=== PATIENT | female | born 1950 | race Asian ===

== ENCOUNTER → 2017-02-08 | Outpatient (CLI) | payer OTHER ==
[~2017-02-08] MED LIST: ALLO100T PO; APIX2.5T PO; CALC1TAB15 PO; CALC25 PO; CETI-260 PO; DOCU250C91 PO; FLUT1DIS3 IH; FURO20 PO; HYDR-3965 PO; MAGN400T40 PO; METO25 PO; MULT1TAB7 PO; SENN8.6T90 PO; SIMV20 PO; SOTA80 PO; TEMA30 PO; VITAD1000 PO
[2017-02-08 10:11] LABS: BASOPHILS # (AUTO) 0.01 K/uL (0.00-0.20); BASOPHILS % (AUTO) 0.2 % (0.0-2.0); EOSINOPHILS # (AUTO) 0.23 K/uL (0.00-0.70); EOSINOPHILS % (AUTO) 3.83 % (1.0-6.0); HEMATOCRIT 35.3 % (36-46); HEMOGLOBIN 11.5 g/dL (12.0-16.0); LYMPHOCYTES # (AUTO) 1.5 K/uL (1.0-4.8); LYMPHOCYTES % (AUTO) 24.7 % (22.0-44.0); MEAN CORPUSCULAR HGB CONC 32.5 G/dL (31.0-37.0); MEAN CORPUSCULAR VOLUME 86 fL (80-100); MONOCYTES # (AUTO) 0.4 K/uL (0.1-1.0); MONOCYTES % (AUTO) 7.3 % (2.0-9.0); NEUTROPHILS # (AUTO) 3.9 K/uL (1.8-7.7); PLATELET COUNT (AUTO) 191 K/uL (150-450); RED BLOOD CELL COUNT(AUTO) 4.09 MIL/uL (4.00-5.20); RED CELL DISTRIBUTION WIDTH 18.1 % (11.5-14.5); WHITE BLOOD COUNT (AUTO) 6.1 K/uL (4.5-11.0)
[2017-02-08 10:28] LABS: HEMOGLOBIN A1C 6.6 % (4.5-6.2)
[2017-02-08 10:45] LABS: ALBUMIN 3.6 g/dL (3.4-5.0); BILIRUBIN,TOTAL 0.3 mg/dL (0.1-1.0); CALCIUM, TOTAL 8.7 mg/dL (8.8-10.5); CHOL/HDL RATIO 2.1 (3.9-5.7); CREATININE 1.55 mg/dL (0.60-1.30); POTASSIUM 4.4 mmol/L (3.5-5.1); THYROID STIMULATING HORMONE 4.95 uIU/mL (0.36-3.74); TOTAL PROTEIN, SERUM 8.6 g/dL (6.4-8.2)
[2017-02-08 10:52] LABS: RBC MORPHOLOGY COMMENT ABNORMAL RBC MORPH
== END | disposition home or self-care (01) ==
LOC: LABPV 07:16
PROVIDERS: ATTEND Internal Medicine Cardiovascular Disease
DX: I11.0 Hypertensive heart disease with heart failure (principal); I50.9 Heart failure, unspecified; E11.8 Type 2 diabetes mellitus with unspecified complications
CPT/HCPCS: 82306; 83036; 84439; 84443

== ENCOUNTER → 2017-02-26 | Outpatient (CLI) | payer OTHER | END | disposition home or self-care (01) | LOC: RADPV 14:55 | PROVIDERS: ATTEND Internal Medicine | DX: M47.894 Other spondylosis, thoracic region (principal); J98.11 Atelectasis; I51.7 Cardiomegaly | CPT/HCPCS: 71020 ==

== ENCOUNTER → 2017-06-14 | Outpatient (CLI) | payer OTHER ==
[~2017-06-14] MED LIST changes: +SIMV-260 PO; -SIMV20 PO
[2017-06-14 09:59] LABS: CALCIUM, TOTAL 8.8 mg/dL (8.8-10.5); CREATININE 1.81 mg/dL (0.60-1.30); POTASSIUM 4.4 mmol/L (3.5-5.1)
== END | disposition home or self-care (01) ==
LOC: LABPV 09:05
PROVIDERS: ATTEND Internal Medicine Cardiovascular Disease
DX: I11.0 Hypertensive heart disease with heart failure (principal); I50.9 Heart failure, unspecified; E55.9 Vitamin D deficiency, unspecified; E11.8 Type 2 diabetes mellitus with unspecified complications

== ENCOUNTER → 2017-06-21 | Outpatient (CLI) | payer OTHER ==
[2017-06-21 10:36] LABS: BASOPHILS # (AUTO) 0.03 K/uL (0.00-0.20); BASOPHILS % (AUTO) 0.6 % (0.0-2.0); EOSINOPHILS # (AUTO) 0.11 K/uL (0.00-0.70); HEMATOCRIT 36.2 % (36-46); HEMOGLOBIN 11.8 g/dL (12.0-16.0); LYMPHOCYTES # (AUTO) 1.7 K/uL (1.0-4.8); MEAN CORPUSCULAR HEMOGLOBIN 30.9 pg (26.0-34.0); MEAN CORPUSCULAR HGB CONC 32.6 G/dL (31.0-37.0); MEAN CORPUSCULAR VOLUME 95 fL (80-100); MONOCYTES # (AUTO) 0.4 K/uL (0.1-1.0); MONOCYTES % (AUTO) 6.6 % (2.0-9.0); NEUTROPHILS # (AUTO) 3.7 K/uL (1.8-7.7); NEUTROPHILS % (AUTO) 61.9 % (40.0-70.0); PLATELET COUNT (AUTO) 157 K/uL (150-450); RED BLOOD CELL COUNT(AUTO) 3.82 MIL/uL (4.00-5.20); RED CELL DISTRIBUTION WIDTH 14.8 % (11.5-14.5)
[2017-06-21 10:46] LABS: POTASSIUM 4.1 mmol/L (3.5-5.1)
[2017-06-21 10:47] LABS: ALBUMIN 3.8 g/dL (3.4-5.0); BILIRUBIN,TOTAL 0.3 mg/dL (0.1-1.0); CALCIUM, TOTAL 8.7 mg/dL (8.8-10.5); CREATININE 1.86 mg/dL (0.60-1.30); TOTAL PROTEIN, SERUM 8.6 g/dL (6.4-8.2)
== END | disposition home or self-care (01) ==
LOC: LABPV 07:05
DX: C54.9 Malignant neoplasm of corpus uteri, unspecified (principal)
CPT/HCPCS: 82378

== ENCOUNTER → 2017-08-09 | Outpatient (CLI) | payer OTHER ==
[~2017-08-09] MED LIST changes: -CETI-260 PO; +CETI-290 PO
[2017-08-09 09:42] LABS: BASOPHILS % (AUTO) 0.5 % (0.0-2.0); EOSINOPHILS % (AUTO) 3.9 % (1.0-6.0); HEMATOCRIT 36.5 % (36-46); HEMOGLOBIN 12.1 g/dL (12.0-16.0); LYMPHOCYTES # (AUTO) 1.8 K/uL (1.0-4.8); LYMPHOCYTES % (AUTO) 39.6 % (22.0-44.0); MEAN CORPUSCULAR HEMOGLOBIN 31.5 pg (26.0-34.0); MEAN CORPUSCULAR HGB CONC 33.2 G/dL (31.0-37.0); MEAN CORPUSCULAR VOLUME 95 fL (80-100); MONOCYTES # (AUTO) 0.4 K/uL (0.1-1.0); MONOCYTES % (AUTO) 9.8 % (2.0-9.0); NEUTROPHILS # (AUTO) 2.1 K/uL (1.8-7.7); NEUTROPHILS % (AUTO) 46.2 % (40.0-70.0); PLATELET COUNT (AUTO) 163 K/uL (150-450); RED BLOOD CELL COUNT(AUTO) 3.84 MIL/uL (4.00-5.20); RED CELL DISTRIBUTION WIDTH 14.4 % (11.5-14.5); WHITE BLOOD COUNT (AUTO) 4.5 K/uL (4.5-11.0)
[2017-08-09 10:07] LABS: HEMOGLOBIN A1C 5.7 % (4.5-6.2)
[2017-08-09 10:18] LABS: ALBUMIN 3.8 g/dL (3.4-5.0); BILIRUBIN,TOTAL 0.3 mg/dL (0.1-1.0); CALCIUM, TOTAL 8.5 mg/dL (8.8-10.5); CHOL/HDL RATIO 2.4 (3.9-5.7); CREATININE 2.3 mg/dL (0.60-1.30); POTASSIUM 3.7 mmol/L (3.5-5.1); THYROID STIMULATING HORMONE 4.57 uIU/mL (0.36-3.74); TOTAL PROTEIN, SERUM 9.2 g/dL (6.4-8.2)
== END | disposition home or self-care (01) ==
LOC: LABPV 07:21
PROVIDERS: ATTEND Internal Medicine Cardiovascular Disease
DX: I11.0 Hypertensive heart disease with heart failure (principal); I50.9 Heart failure, unspecified; E11.8 Type 2 diabetes mellitus with unspecified complications; E55.9 Vitamin D deficiency, unspecified
CPT/HCPCS: 82306; 83036; 83735; 84439; 84443

== ENCOUNTER → 2017-08-23 | Outpatient (CLI) | payer OTHER | END | disposition home or self-care (01) | LOC: LABPV 07:18 | PROVIDERS: ATTEND Internal Medicine Cardiovascular Disease | DX: I11.0 Hypertensive heart disease with heart failure (principal); I50.9 Heart failure, unspecified; E11.8 Type 2 diabetes mellitus with unspecified complications; E55.9 Vitamin D deficiency, unspecified ==

== ENCOUNTER → 2017-09-13 | Outpatient (CLI) | payer OTHER, MEDICARE ==
[2017-09-13 12:46] LABS: CALCIUM, TOTAL 8.8 mg/dL (8.8-10.5); CREATININE 1.94 mg/dL (0.60-1.30); POTASSIUM 4.3 mmol/L (3.5-5.1)
== END | disposition home or self-care (01) ==
LOC: LABPV 08:53
PROVIDERS: ATTEND Internal Medicine Cardiovascular Disease
DX: I11.0 Hypertensive heart disease with heart failure (principal); I50.9 Heart failure, unspecified; E11.65 Type 2 diabetes mellitus with hyperglycemia; E55.9 Vitamin D deficiency, unspecified

== ENCOUNTER → 2017-10-07 | Outpatient (CLI) | payer OTHER, MEDICARE ==
[2017-10-07 12:37] LABS: HEMATOCRIT 34.1 % (36-46); HEMOGLOBIN 11.3 g/dL (12.0-16.0)
[2017-10-07 12:42] LABS: CALCIUM, TOTAL 8.8 mg/dL (8.8-10.5); CREATININE 1.79 mg/dL (0.60-1.30); PHOSPHORUS 4.6 mg/dL (2.5-4.9); POTASSIUM 4.4 mmol/L (3.5-5.1)
== END | disposition home or self-care (01) ==
LOC: LABPV 10:06
PROVIDERS: ATTEND Internal Medicine Nephrology
DX: E11.22 Type 2 diabetes mellitus with diabetic chronic kidney disease (principal); N18.4 Chronic kidney disease, stage 4 (severe); E78.5 Hyperlipidemia, unspecified
CPT/HCPCS: 82570; 83970; 84100; 84156; 85014; 85018

== ENCOUNTER → 2017-10-18 | Outpatient (CLI) | payer OTHER, MEDICARE ==
[2017-10-18 08:40] LABS: BASOPHILS # (AUTO) 0.03 K/uL (0.00-0.20); BASOPHILS % (AUTO) 0.5 % (0.0-2.0); HEMATOCRIT 37.8 % (36-46); HEMOGLOBIN 12.2 g/dL (12.0-16.0); LYMPHOCYTES # (AUTO) 1.2 K/uL (1.0-4.8); LYMPHOCYTES % (AUTO) 20.2 % (22.0-44.0); MEAN CORPUSCULAR HGB CONC 32.1 G/dL (31.0-37.0); MEAN CORPUSCULAR VOLUME 97 fL (80-100); MONOCYTES # (AUTO) 0.3 K/uL (0.1-1.0); MONOCYTES % (AUTO) 5.8 % (2.0-9.0); NEUTROPHILS % (AUTO) 68.4 % (40.0-70.0); PLATELET COUNT (AUTO) 165 K/uL (150-450); RED BLOOD CELL COUNT(AUTO) 3.91 MIL/uL (4.00-5.20); RED CELL DISTRIBUTION WIDTH 15.7 % (11.5-14.5); WHITE BLOOD COUNT (AUTO) 5.9 K/uL (4.5-11.0)
[2017-10-18 09:05] LABS: ALBUMIN 3.8 g/dL (3.4-5.0); BILIRUBIN,TOTAL 0.4 mg/dL (0.1-1.0); CHOL/HDL RATIO 2.4 (3.9-5.7); CREATININE 1.95 mg/dL (0.60-1.30); MAGNESIUM 2.2 mg/dL (1.80-2.40); POTASSIUM 4.4 mmol/L (3.5-5.1); THYROID STIMULATING HORMONE 6.16 uIU/mL (0.36-3.74); TOTAL PROTEIN, SERUM 9.3 g/dL (6.4-8.2)
== END | disposition home or self-care (01) ==
LOC: LABPV 07:12
PROVIDERS: ATTEND Internal Medicine Cardiovascular Disease
DX: I11.0 Hypertensive heart disease with heart failure (principal); I50.9 Heart failure, unspecified; E11.65 Type 2 diabetes mellitus with hyperglycemia; E55.9 Vitamin D deficiency, unspecified
CPT/HCPCS: 82306; 83036; 83735; 84439; 84443

== ENCOUNTER → 2017-11-25 | Outpatient (CLI) | payer OTHER, MEDICARE ==
[2017-11-25 11:03] LABS: BASOPHILS % (AUTO) 0.3 % (0.0-2.0); EOSINOPHILS % (AUTO) 2.9 % (1.0-6.0); HEMATOCRIT 34.8 % (36-46); HEMOGLOBIN 11.6 g/dL (12.0-16.0); LYMPHOCYTES # (AUTO) 1.6 K/uL (1.0-4.8); LYMPHOCYTES % (AUTO) 36.8 % (22.0-44.0); MEAN CORPUSCULAR HEMOGLOBIN 31.9 pg (26.0-34.0); MEAN CORPUSCULAR HGB CONC 33.2 G/dL (31.0-37.0); MEAN CORPUSCULAR VOLUME 96 fL (80-100); MONOCYTES # (AUTO) 0.3 K/uL (0.1-1.0); MONOCYTES % (AUTO) 7.5 % (2.0-9.0); NEUTROPHILS # (AUTO) 2.3 K/uL (1.8-7.7); NEUTROPHILS % (AUTO) 52.5 % (40.0-70.0); PLATELET COUNT (AUTO) 201 K/uL (150-450); RED BLOOD CELL COUNT(AUTO) 3.62 MIL/uL (4.00-5.20); RED CELL DISTRIBUTION WIDTH 14.3 % (11.5-14.5)
[2017-11-25 11:15] LABS: ALBUMIN 3.4 g/dL (3.4-5.0); BILIRUBIN,TOTAL 0.3 mg/dL (0.1-1.0); CALCIUM, TOTAL 8.7 mg/dL (8.8-10.5); CREATININE 2.34 mg/dL (0.60-1.30); POTASSIUM 4.3 mmol/L (3.5-5.1); TOTAL PROTEIN, SERUM 8.9 g/dL (6.4-8.2)
== END | disposition home or self-care (01) ==
LOC: LABPV 07:36
PROVIDERS: ATTEND Internal Medicine Cardiovascular Disease
DX: I11.0 Hypertensive heart disease with heart failure (principal); I50.9 Heart failure, unspecified; E55.9 Vitamin D deficiency, unspecified; E11.8 Type 2 diabetes mellitus with unspecified complications

== ENCOUNTER → 2018-01-13 | Outpatient (CLI) | payer OTHER | END | disposition home or self-care (01) | LOC: RADPV 10:00 | PROVIDERS: ATTEND Internal Medicine | DX: J98.11 Atelectasis (principal); I70.0 Atherosclerosis of aorta; I51.7 Cardiomegaly | CPT/HCPCS: 71046 ==

== ENCOUNTER → 2018-02-07 | Outpatient (CLI) | payer OTHER ==
[2018-02-07 11:30] LABS: HEMATOCRIT 34.6 % (36-46); HEMOGLOBIN 11.3 g/dL (12.0-16.0)
[2018-02-07 12:57] LABS: CALCIUM, TOTAL 8.7 mg/dL (8.8-10.5); CHOL/HDL RATIO 2.2 (3.9-5.7); CREATININE 1.78 mg/dL (0.60-1.30); POTASSIUM 4.6 mmol/L (3.5-5.1)
[2018-02-07 13:13] LABS: APPEARANCE,URINE CLEAR (CLEAR); BILIRUBIN,URINE NEGATIVE (NEGATIVE); GLUCOSE, URINE (UA) NEGATIVE (NEGATIVE); KETONES,URINE NEGATIVE (NEGATIVE); LEUKOCYTE ESTERASE ,URINE TRACE (NEGATIVE); NITRATE,URINE NEGATIVE (NEGATIVE); OCCULT BLOOD,URINE NEGATIVE (NEGATIVE); PROTEIN,URINE NEGATIVE (NEGATIVE); UROBILINOGEN,URINE 0.2 mg/dL (<=1.0)
[2018-02-07 13:41] LABS: BACTERIA,URINE Few /HPF (None Seen); RBC,URINE None Seen /HPF (0-2); SQUAMOUS EPITHELIAL CELL,UR Few /LPF (None Seen); WBC,URINE 0-2 /HPF (0-5)
== END | disposition home or self-care (01) ==
LOC: LABPV 07:12
PROVIDERS: ATTEND Internal Medicine Nephrology
DX: E78.5 Hyperlipidemia, unspecified (principal); E55.9 Vitamin D deficiency, unspecified; R73.09 Other abnormal glucose; R82.90 Unspecified abnormal findings in urine; R79.89 Other specified abnormal findings of blood chemistry
CPT/HCPCS: 82306; 85014; 85018

== ENCOUNTER → 2018-05-01 | Outpatient (CLI) | payer OTHER ==
[2018-05-01 10:05] LABS: ALBUMIN 3.3 g/dL (3.4-5.0); BILIRUBIN,TOTAL 0.4 mg/dL (0.1-1.0); CALCIUM, TOTAL 8.4 mg/dL (8.8-10.5); CREATININE 1.83 mg/dL (0.60-1.30); POTASSIUM 4.4 mmol/L (3.5-5.1); TOTAL PROTEIN, SERUM 9.4 g/dL (6.4-8.2)
[2018-05-01 10:11] LABS: HEMOGLOBIN A1C 6.9 % (4.5-6.2)
== END | disposition home or self-care (01) ==
LOC: LABPV 07:22
PROVIDERS: ATTEND Internal Medicine
DX: E78.5 Hyperlipidemia, unspecified (principal); Z79.899 Other long term (current) drug therapy
CPT/HCPCS: 83036

== ENCOUNTER → 2018-06-02 | Outpatient (CLI) | payer OTHER ==
[2018-06-02 08:10] LABS: EOSINOPHILS % (AUTO) 5.3 % (1.0-6.0); HEMATOCRIT 33.7 % (36-46); HEMOGLOBIN 11.3 g/dL (12.0-16.0); LYMPHOCYTES # (AUTO) 1.1 K/uL (1.0-4.8); LYMPHOCYTES % (AUTO) 23.5 % (22.0-44.0); MEAN CORPUSCULAR HEMOGLOBIN 31.3 pg (26.0-34.0); MEAN CORPUSCULAR HGB CONC 33.5 G/dL (31.0-37.0); MEAN CORPUSCULAR VOLUME 94 fL (80-100); MONOCYTES # (AUTO) 0.4 K/uL (0.1-1.0); MONOCYTES % (AUTO) 8.3 % (2.0-9.0); NEUTROPHILS # (AUTO) 2.8 K/uL (1.8-7.7); NEUTROPHILS % (AUTO) 61.9 % (40.0-70.0); PLATELET COUNT (AUTO) 199 K/uL (150-450); RED BLOOD CELL COUNT(AUTO) 3.61 MIL/uL (4.00-5.20); RED CELL DISTRIBUTION WIDTH 14.1 % (11.5-14.5)
[2018-06-02 08:19] LABS: ALBUMIN 3.2 g/dL (3.4-5.0); BILIRUBIN,TOTAL 0.5 mg/dL (0.1-1.0); CALCIUM, TOTAL 8.8 mg/dL (8.8-10.5); CREATININE 2.21 mg/dL (0.60-1.30); MAGNESIUM 2.2 mg/dL (1.80-2.40); TOTAL PROTEIN, SERUM 9.7 g/dL (6.4-8.2)
[2018-06-02 08:29] LABS: HEMOGLOBIN A1C 6.6 % (4.5-6.2)
[2018-06-02 09:12] LABS: CREATININE,URINE RANDOM 32.6 mg/dL (30.0-125.0)
== END | disposition home or self-care (01) ==
LOC: LABPV 07:10
PROVIDERS: ATTEND Internal Medicine Nephrology
DX: I13.0 Hypertensive heart and chronic kidney disease with heart failure and stage 1 through stage 4 chronic kidney disease, or unspecified chronic kidney disease (principal); E11.22 Type 2 diabetes mellitus with diabetic chronic kidney disease; N18.4 Chronic kidney disease, stage 4 (severe); I50.9 Heart failure, unspecified; E78.00 Pure hypercholesterolemia, unspecified
CPT/HCPCS: 82570; 83036; 83735; 83970; 84156

== ENCOUNTER → 2018-06-03 | Outpatient (CLI) | payer OTHER ==
[2018-06-03 17:00] LABS: % IRON SATURATION 17.7 % (22-44)
== END | disposition home or self-care (01) ==
LOC: LABPV 14:10
PROVIDERS: ATTEND Specialist
DX: R19.5 Other fecal abnormalities (principal); I13.0 Hypertensive heart and chronic kidney disease with heart failure and stage 1 through stage 4 chronic kidney disease, or unspecified chronic kidney disease; I50.9 Heart failure, unspecified; E78.00 Pure hypercholesterolemia, unspecified
CPT/HCPCS: 83540; 83550

== ENCOUNTER → 2018-06-25 | Outpatient (CLI) | payer OTHER | END | disposition home or self-care (01) | LOC: LABPV 13:51 | DX: C54.3 Malignant neoplasm of fundus uteri (principal); I11.0 Hypertensive heart disease with heart failure; I50.9 Heart failure, unspecified; E78.00 Pure hypercholesterolemia, unspecified | CPT/HCPCS: 82378 ==

== ENCOUNTER → 2018-08-18 | Outpatient (CLI) | payer OTHER ==
[2018-08-18 11:03] LABS: CALCIUM, TOTAL 8.9 mg/dL (8.8-10.5); CREATININE 2.93 mg/dL (0.60-1.30); POTASSIUM 4.5 mmol/L (3.5-5.1)
[2018-08-18 11:14] LABS: APPEARANCE,URINE CLEAR (CLEAR); BILIRUBIN,URINE NEGATIVE (NEGATIVE); GLUCOSE, URINE (UA) NEGATIVE (NEGATIVE); KETONES,URINE NEGATIVE (NEGATIVE); LEUKOCYTE ESTERASE ,URINE NEGATIVE (NEGATIVE); NITRATE,URINE NEGATIVE (NEGATIVE); OCCULT BLOOD,URINE NEGATIVE (NEGATIVE); PROTEIN,URINE NEGATIVE (NEGATIVE); UROBILINOGEN,URINE 0.2 mg/dL (<=1.0)
== END | disposition home or self-care (01) ==
LOC: LABPV 07:18
PROVIDERS: ATTEND Internal Medicine Nephrology
DX: I13.0 Hypertensive heart and chronic kidney disease with heart failure and stage 1 through stage 4 chronic kidney disease, or unspecified chronic kidney disease (principal); E11.22 Type 2 diabetes mellitus with diabetic chronic kidney disease; I50.9 Heart failure, unspecified; N18.4 Chronic kidney disease, stage 4 (severe); E78.00 Pure hypercholesterolemia, unspecified

== ENCOUNTER → 2018-08-28 | Outpatient (CLI) | payer OTHER ==
[2018-08-28 10:17] LABS: CREATININE,URINE RANDOM 21.6 mg/dL (30.0-125.0); PROTEIN,URINE RANDOM < 6 mg/dL (0-11.9)
[2018-08-28 10:21] LABS: CALCIUM, TOTAL 8.9 mg/dL (8.8-10.5); CREATININE 2.34 mg/dL (0.60-1.30); POTASSIUM 4.2 mmol/L (3.5-5.1)
== END | disposition home or self-care (01) ==
LOC: LABPV 07:18
PROVIDERS: ATTEND Internal Medicine Nephrology
DX: I13.0 Hypertensive heart and chronic kidney disease with heart failure and stage 1 through stage 4 chronic kidney disease, or unspecified chronic kidney disease (principal); I50.9 Heart failure, unspecified; N18.3 Chronic kidney disease, stage 3 (moderate); R80.9 Proteinuria, unspecified; Z94.0 Kidney transplant status
CPT/HCPCS: 82570; 84156

== ENCOUNTER → 2018-10-06 | Outpatient (CLI) | payer OTHER ==
[2018-10-06 09:43] LABS: HEMATOCRIT 36.7 % (36-46); HEMOGLOBIN 12.1 g/dL (12.0-16.0)
[2018-10-06 09:48] LABS: CREATININE,URINE RANDOM 43.6 mg/dL (30.0-125.0)
[2018-10-06 09:48] LABS: CALCIUM, TOTAL 8.6 mg/dL (8.8-10.5); CREATININE 1.93 mg/dL (0.60-1.30); POTASSIUM 4.4 mmol/L (3.5-5.1)
== END | disposition home or self-care (01) ==
LOC: LABPV 07:14
PROVIDERS: ATTEND Internal Medicine Nephrology
DX: I13.0 Hypertensive heart and chronic kidney disease with heart failure and stage 1 through stage 4 chronic kidney disease, or unspecified chronic kidney disease (principal); N18.3 Chronic kidney disease, stage 3 (moderate); I50.9 Heart failure, unspecified; D63.8 Anemia in other chronic diseases classified elsewhere; R80.9 Proteinuria, unspecified
CPT/HCPCS: 82570; 84156; 85014; 85018

== ENCOUNTER 2019-01-01 15:36 | Inpatient (IN) | payer OTHER, MEDICARE ==
[~2019-01-01] VITALS: Ht 152.4 cm; Wt 99.5 kg
[~2019-01-01 15:36] MED LIST changes: -CETI-290 PO; +CETI10TA59 PO
[2019-01-01 20:02] VITALS: BP 113/64
[2019-01-01] MEDS: OXYGEN THERAPY IH SCH (21:00)
[2019-01-01] MEDS: DOCUSATE SODIUM 100 MG CAPSULE PO SCH (21:00)
[2019-01-01] MEDS ORDERED: CefTRIAXone 1 GM/DEXTROSE 50 ML IV SCH (21:00)
[2019-01-01] MEDS ORDERED: DEXTROSE 50%-WATER 25 GM/50 ML SYRINGE IVP PRN ×2 (21:00)
[2019-01-01] MEDS ORDERED: METOPROLOL SUCCINATE 50 MG ER TABLET PO SCH (21:00)
[2019-01-01] MEDS ORDERED: INSULIN LISPRO 100 UNITS/ML SQ PRN (21:00)
[2019-01-01 22:15] VITALS: BP 111/62
[2019-01-01] MEDS: ATORVASTATIN CALCIUM 40 MG TABLET PO SCH (22:18)
[2019-01-01] MEDS: INSULIN LISPRO 100 UNITS/ML SQ PRN (22:24)
[2019-01-01] MEDS: TEMAZEPAM 15 MG CAPSULE PO PRN (22:33)
[2019-01-02] VITALS: BP 105/61
[2019-01-02 00:49] LABS: GLUCOMETER DEV NAME(LOC) 2WR.2; GLUCOSE,POINT OF CARE 149 MG/DL (70-110)
[2019-01-02 06:19] LABS: GLUCOMETER DEV NAME(LOC) 2WR.1; GLUCOSE,POINT OF CARE 95 MG/DL (70-110)
[2019-01-02 06:38] LABS: EOSINOPHILS % (AUTO) 1.5 % (1.0-6.0); HEMATOCRIT 31.4 % (36-46); HEMOGLOBIN 11.2 g/dL (12.0-16.0); LYMPHOCYTES # (AUTO) 1.6 K/uL (1.0-4.8); LYMPHOCYTES % (AUTO) 29.1 % (22.0-44.0); MEAN CORPUSCULAR HEMOGLOBIN 33.9 pg (26.0-34.0); MEAN CORPUSCULAR HGB CONC 35.6 G/dL (31.0-37.0); MEAN CORPUSCULAR VOLUME 95 fL (80-100); MONOCYTES # (AUTO) 0.4 K/uL (0.1-1.0); MONOCYTES % (AUTO) 6.4 % (2.0-9.0); NEUTROPHILS # (AUTO) 3.5 K/uL (1.8-7.7); PLATELET COUNT (AUTO) 172 K/uL (150-450); RED CELL DISTRIBUTION WIDTH 14.9 % (11.5-14.5)
[2019-01-02 06:42] LABS: PROTHROMBIN TIME 10.1 SEC (9.4-11.6)
[2019-01-02 06:58] LABS: ALBUMIN 2.5 g/dL (3.4-5.0); BILIRUBIN,TOTAL 0.3 mg/dL (0.1-1.0); CALCIUM, TOTAL 8.7 mg/dL (8.8-10.5); CREATININE 1.67 mg/dL (0.60-1.30); POTASSIUM 4.4 mmol/L (3.5-5.1); TOTAL PROTEIN, SERUM 7.5 g/dL (6.4-8.2)
[2019-01-02 08:00] VITALS: BP 131/82
[2019-01-02] MEDS: OXYGEN THERAPY IH SCH ×2 (08:00→20:00)
[2019-01-02] MEDS: CALCITRIOL 0.25 MCG CAPSULE PO SCH (08:41)
[2019-01-02] MEDS: 0.9% SODIUM CHLORIDE 10 ML SYRINGE IVP SCH ×2 (08:41→17:42)
[2019-01-02] MEDS: DOCUSATE SODIUM 100 MG CAPSULE PO SCH ×2 (08:42→21:00)
[2019-01-02] MEDS: FUROSEMIDE 20 MG TABLET PO SCH (08:42)
[2019-01-02] MEDS: CLOPIDOGREL BISULFATE 75 MG TABLET PO SCH (08:42)
[2019-01-02] MEDS: ALLOPURINOL 100 MG TABLET PO SCH (08:42)
[2019-01-02] MEDS: ASPIRIN 81 MG EC TABLET PO SCH (08:42)
[2019-01-02] MEDS: METOPROLOL TARTRATE 50 MG TABLET PO SCH ×2 (09:35→21:21)
[2019-01-02] MEDS: PredniSONE 20 MG TABLET PO SCH (09:35)
[2019-01-02] MEDS: MULTIVITAMINS WITH MINERALS, THERAPEUTIC TABLET PO SCH (09:35)
[2019-01-02] MEDS: CETIRIZINE HCL 10 MG TABLET PO SCH (09:35)
[2019-01-02 12:54] LABS: GLUCOMETER DEV NAME(LOC) 2WR.1; GLUCOSE,POINT OF CARE 130 MG/DL (70-110)
[2019-01-02 16:00] VITALS: BP 118/71
[2019-01-02] MEDS: DICLOFENAC SODIUM 1% 100 GM GEL [4GM] TP SCH ×2 (17:39→21:29)
[2019-01-02] MEDS ORDERED: SODIUM CHLORIDE 0.9% 100 ML ONE (18:18)
[2019-01-02] MEDS: INSULIN LISPRO 100 UNITS/ML SQ PRN ×2 (18:27→21:44)
[2019-01-02] MEDS: CefTRIAXone 1 GM/DEXTROSE 50 ML IV SCH (18:28)
[2019-01-02 20:44] LABS: GLUCOMETER DEV NAME(LOC) 2WR.1; GLUCOSE,POINT OF CARE 238 MG/DL (70-110)
[2019-01-02] MEDS: GABAPENTIN 300 MG CAPSULE PO SCH (21:21)
[2019-01-02] MEDS: ATORVASTATIN CALCIUM 40 MG TABLET PO SCH (21:21)
[2019-01-02] MEDS: TEMAZEPAM 15 MG CAPSULE PO PRN (21:29)
[2019-01-02 21:59] LABS: GLUCOMETER DEV NAME(LOC) 2WR.1; GLUCOSE,POINT OF CARE 152 MG/DL (70-110)
[2019-01-03 05:00] VITALS: BP 130/95
[2019-01-03] MEDS: 0.9% SODIUM CHLORIDE 10 ML SYRINGE IVP SCH ×3 (05:14→16:24)
[2019-01-03 06:24] LABS: GLUCOMETER DEV NAME(LOC) 2WR.1; GLUCOSE,POINT OF CARE 93 MG/DL (70-110)
[2019-01-03 07:45] VITALS: BP 129/74
[2019-01-03] MEDS: ASPIRIN 81 MG EC TABLET PO SCH (09:37)
[2019-01-03] MEDS: DOCUSATE SODIUM 100 MG CAPSULE PO SCH ×2 (09:37→21:07)
[2019-01-03] MEDS: CALCITRIOL 0.25 MCG CAPSULE PO SCH (09:37)
[2019-01-03] MEDS: CLOPIDOGREL BISULFATE 75 MG TABLET PO SCH (09:37)
[2019-01-03] MEDS: METOPROLOL TARTRATE 50 MG TABLET PO SCH ×2 (09:37→21:14)
[2019-01-03] MEDS: PredniSONE 20 MG TABLET PO SCH (09:38)
[2019-01-03] MEDS: CETIRIZINE HCL 10 MG TABLET PO SCH (09:38)
[2019-01-03] MEDS: ALLOPURINOL 100 MG TABLET PO SCH ×2 (09:38→13:05)
[2019-01-03] MEDS: MULTIVITAMINS WITH MINERALS, THERAPEUTIC TABLET PO SCH (09:38)
[2019-01-03] MEDS: FUROSEMIDE 20 MG TABLET PO SCH (09:38)
[2019-01-03] MEDS: OXYGEN THERAPY IH SCH ×2 (09:40→20:00)
[2019-01-03] MEDS: ACETAMINOPHEN 325 MG TABLET PO PRN ×2 (09:53→16:23)
[2019-01-03 12:48] LABS: GLUCOMETER DEV NAME(LOC) 2WR.2; GLUCOSE,POINT OF CARE 208 MG/DL (70-110)
[2019-01-03] MEDS: DICLOFENAC SODIUM 1% 100 GM GEL [4GM] TP SCH ×3 (13:05→21:07)
[2019-01-03] MEDS: COLCHICINE 0.6 MG TABLET PO SCH (13:07)
[2019-01-03] MEDS: INSULIN LISPRO 100 UNITS/ML SQ PRN ×3 (13:13→21:11)
[2019-01-03 15:37] VITALS: BP 102/57
[2019-01-03 17:49] LABS: GLUCOMETER DEV NAME(LOC) 2WR.2; GLUCOSE,POINT OF CARE 333 MG/DL (70-110)
[2019-01-03] MEDS: CefTRIAXone 1 GM/DEXTROSE 50 ML IV SCH (18:36)
[2019-01-03 21:05] VITALS: BP 122/68
[2019-01-03] MEDS: MUPIROCIN CALCIUM 2% 22 GM OINTMENT NASAL SCH (21:07)
[2019-01-03] MEDS: ATORVASTATIN CALCIUM 40 MG TABLET PO SCH (21:12)
[2019-01-03] MEDS: GABAPENTIN 300 MG CAPSULE PO SCH (21:12)
[2019-01-03 21:13] LABS: GLUCOMETER DEV NAME(LOC) 2WR.2; GLUCOSE,POINT OF CARE 244 MG/DL (70-110)
[2019-01-03] MEDS: TEMAZEPAM 7.5 MG CAPSULE PO PRN (21:21)
[2019-01-04] MEDS: 0.9% SODIUM CHLORIDE 10 ML SYRINGE IVP SCH ×4 (04:29→19:11)
[2019-01-04 04:30] VITALS: BP 116/62
[2019-01-04 06:39] LABS: GLUCOMETER DEV NAME(LOC) 2WR.1; GLUCOSE,POINT OF CARE 101 MG/DL (70-110)
[2019-01-04 07:18] LABS: ALBUMIN 2.5 g/dL (3.4-5.0); BILIRUBIN,TOTAL 0.2 mg/dL (0.1-1.0); CALCIUM, TOTAL 8.7 mg/dL (8.8-10.5); CREATININE 1.87 mg/dL (0.60-1.30); POTASSIUM 4.8 mmol/L (3.5-5.1); TOTAL PROTEIN, SERUM 7.4 g/dL (6.4-8.2)
[2019-01-04 07:27] LABS: URIC ACID 6.2 mg/dL (2.6-7.2)
[2019-01-04] MEDS: OXYGEN THERAPY IH SCH ×2 (08:00→20:00)
[2019-01-04] MEDS: CALCITRIOL 0.25 MCG CAPSULE PO SCH (08:43)
[2019-01-04] MEDS: METOPROLOL TARTRATE 50 MG TABLET PO SCH ×2 (08:44→20:47)
[2019-01-04] MEDS: ASPIRIN 81 MG EC TABLET PO SCH (08:44)
[2019-01-04] MEDS: DOCUSATE SODIUM 100 MG CAPSULE PO SCH ×2 (08:44→20:46)
[2019-01-04] MEDS: COLCHICINE 0.6 MG TABLET PO SCH (08:44)
[2019-01-04] MEDS: FUROSEMIDE 40 MG TABLET PO SCH (08:44)
[2019-01-04] MEDS: MULTIVITAMINS WITH MINERALS, THERAPEUTIC TABLET PO SCH (08:44)
[2019-01-04] MEDS: ALLOPURINOL 100 MG TABLET PO SCH (08:44)
[2019-01-04] MEDS: CLOPIDOGREL BISULFATE 75 MG TABLET PO SCH (08:45)
[2019-01-04] MEDS: CETIRIZINE HCL 10 MG TABLET PO SCH (08:45)
[2019-01-04] MEDS: DICLOFENAC SODIUM 1% 100 GM GEL [4GM] TP SCH ×3 (08:45→20:46)
[2019-01-04] MEDS: MUPIROCIN CALCIUM 2% 22 GM OINTMENT NASAL SCH ×3 (09:00→20:47)
[2019-01-04 09:36] VITALS: BP 120/78
[2019-01-04 12:29] LABS: GLUCOMETER DEV NAME(LOC) 2WR.2; GLUCOSE,POINT OF CARE 102 MG/DL (70-110)
[2019-01-04] MEDS ORDERED: POLYETHYLENE GLYCOL 3350 17 GM PACKET PO PRN (15:15)
[2019-01-04 16:57] VITALS: BP 112/56
[2019-01-04 17:44] LABS: GLUCOMETER DEV NAME(LOC) 2WR.2; GLUCOSE,POINT OF CARE 171 MG/DL (70-110)
[2019-01-04] MEDS: INSULIN LISPRO 100 UNITS/ML SQ PRN (18:22)
[2019-01-04] MEDS: CefTRIAXone 1 GM/DEXTROSE 50 ML IV SCH (19:11)
[2019-01-04 20:45] VITALS: BP 114/62
[2019-01-04] MEDS: GABAPENTIN 300 MG CAPSULE PO SCH (20:46)
[2019-01-04] MEDS: TEMAZEPAM 7.5 MG CAPSULE PO PRN (20:46)
[2019-01-04] MEDS: ATORVASTATIN CALCIUM 40 MG TABLET PO SCH (20:46)
[2019-01-04 21:33] LABS: GLUCOMETER DEV NAME(LOC) 2WR.1; GLUCOSE,POINT OF CARE 133 MG/DL (70-110)
[2019-01-05] MEDS: 0.9% SODIUM CHLORIDE 10 ML SYRINGE IVP SCH ×3 (01:16→16:42)
[2019-01-05 01:18] VITALS: BP 118/62
[2019-01-05] MEDS: ACETAMINOPHEN 325 MG TABLET PO PRN ×2 (01:18→08:24)
[2019-01-05 06:24] LABS: GLUCOMETER DEV NAME(LOC) 2WR.1; GLUCOSE,POINT OF CARE 113 MG/DL (70-110)
[2019-01-05 07:45] VITALS: BP 114/64
[2019-01-05] MEDS: OXYGEN THERAPY IH SCH ×2 (08:00→20:00)
[2019-01-05] MEDS: METOPROLOL TARTRATE 50 MG TABLET PO SCH (08:20)
[2019-01-05] MEDS: CALCITRIOL 0.25 MCG CAPSULE PO SCH (08:20)
[2019-01-05] MEDS: FUROSEMIDE 40 MG TABLET PO SCH (08:20)
[2019-01-05] MEDS: PANTOPRAZOLE SODIUM 40 MG DR TABLET PO SCH (08:20)
[2019-01-05] MEDS: ALLOPURINOL 100 MG TABLET PO SCH (08:20)
[2019-01-05] MEDS: DICLOFENAC SODIUM 1% 100 GM GEL [4GM] TP SCH ×3 (08:20→20:46)
[2019-01-05] MEDS: CLOPIDOGREL BISULFATE 75 MG TABLET PO SCH (08:20)
[2019-01-05] MEDS: DOCUSATE SODIUM 100 MG CAPSULE PO SCH ×2 (08:20→20:46)
[2019-01-05] MEDS: MUPIROCIN CALCIUM 2% 22 GM OINTMENT NASAL SCH ×2 (08:21→20:45)
[2019-01-05] MEDS: ASPIRIN 81 MG EC TABLET PO SCH (08:21)
[2019-01-05] MEDS: COLCHICINE 0.6 MG TABLET PO SCH (08:21)
[2019-01-05] MEDS: MULTIVITAMINS WITH MINERALS, THERAPEUTIC TABLET PO SCH (08:21)
[2019-01-05 08:24] VITALS: BP 102/51
[2019-01-05] MEDS: METOPROLOL TARTRATE 25 MG TABLET PO SCH ×2 (09:00→20:45)
[2019-01-05 16:04] VITALS: BP 101/57
[2019-01-05 17:28] LABS: GLUCOMETER DEV NAME(LOC) 2WR.1; GLUCOSE,POINT OF CARE 163 MG/DL (70-110)
[2019-01-05 18:23] LABS: GLUCOMETER DEV NAME(LOC) 2WR.2; GLUCOSE,POINT OF CARE 130 MG/DL (70-110)
[2019-01-05 20:39] VITALS: BP 101/43
[2019-01-05] MEDS: TEMAZEPAM 7.5 MG CAPSULE PO PRN (20:45)
[2019-01-05] MEDS: GABAPENTIN 300 MG CAPSULE PO SCH (20:45)
[2019-01-05] MEDS: CETIRIZINE HCL 10 MG TABLET PO SCH (20:45)
[2019-01-05] MEDS: ATORVASTATIN CALCIUM 40 MG TABLET PO SCH (20:46)
[2019-01-05] MEDS: INSULIN LISPRO 100 UNITS/ML SQ PRN (21:02)
[2019-01-05 22:13] LABS: GLUCOMETER DEV NAME(LOC) 2WR.2; GLUCOSE,POINT OF CARE 145 MG/DL (70-110)
[2019-01-06] VITALS (25 sets, daily range): BP systolic 72–117; BP diastolic 35–76
[2019-01-06] MEDS: 0.9% SODIUM CHLORIDE 10 ML SYRINGE IVP SCH ×3 (04:27→16:33)
[2019-01-06] MEDS: ACETAMINOPHEN 325 MG TABLET PO PRN (04:54)
[2019-01-06 06:18] LABS: EOSINOPHILS % (AUTO) 10.3 % (1.0-6.0); HEMATOCRIT 26.3 % (36-46); HEMOGLOBIN 8.9 g/dL (12.0-16.0); LYMPHOCYTES # (AUTO) 1.6 K/uL (1.0-4.8); LYMPHOCYTES % (AUTO) 27.7 % (22.0-44.0); MEAN CORPUSCULAR HEMOGLOBIN 32.1 pg (26.0-34.0); MEAN CORPUSCULAR HGB CONC 33.7 G/dL (31.0-37.0); MEAN CORPUSCULAR VOLUME 95 fL (80-100); MONOCYTES # (AUTO) 0.3 K/uL (0.1-1.0); NEUTROPHILS # (AUTO) 3.1 K/uL (1.8-7.7); PLATELET COUNT (AUTO) 181 K/uL (150-450); RED BLOOD CELL COUNT(AUTO) 2.76 MIL/uL (4.00-5.20); RED CELL DISTRIBUTION WIDTH 15.4 % (11.5-14.5)
[2019-01-06 06:20] LABS: APPEARANCE,URINE CLEAR (CLEAR); BILIRUBIN,URINE NEGATIVE (NEGATIVE); GLUCOSE, URINE (UA) NEGATIVE (NEGATIVE); KETONES,URINE NEGATIVE (NEGATIVE); LEUKOCYTE ESTERASE ,URINE NEGATIVE (NEGATIVE); NITRATE,URINE NEGATIVE (NEGATIVE); OCCULT BLOOD,URINE NEGATIVE (NEGATIVE); PROTEIN,URINE NEGATIVE (NEGATIVE); UROBILINOGEN,URINE 0.2 mg/dL (<=1.0)
[2019-01-06 06:23] LABS: GLUCOMETER DEV NAME(LOC) 2WR.2; GLUCOSE,POINT OF CARE 131 MG/DL (70-110)
[2019-01-06 06:27] LABS: BACTERIA,URINE None Seen /HPF (None Seen); RBC,URINE None Seen /HPF (0-2); SQUAMOUS EPITHELIAL CELL,UR Moderate /LPF (None Seen); WBC,URINE 0-2 /HPF (0-5)
[2019-01-06 06:49] LABS: ALBUMIN 2.4 g/dL (3.4-5.0); BILIRUBIN,TOTAL 0.3 mg/dL (0.1-1.0); C-REACTIVE PROTEIN QUANT 0.52 mg/dL (0.00-0.30); CALCIUM, TOTAL 8.5 mg/dL (8.8-10.5); CREATININE 1.74 mg/dL (0.60-1.30); MAGNESIUM 2.2 mg/dL (1.80-2.40); PHOSPHORUS 4.3 mg/dL (2.5-4.9); POTASSIUM 4.7 mmol/L (3.5-5.1); TOTAL PROTEIN, SERUM 6.8 g/dL (6.4-8.2)
[2019-01-06] MEDS: OXYGEN THERAPY IH SCH ×2 (08:00→20:20)
[2019-01-06] MEDS ORDERED: FUROSEMIDE 20 MG/2 ML VIAL IVP ONE (08:45)
[2019-01-06] MEDS ORDERED: DIGOXIN 250 MCG/ML 2 ML AMP IVP ONE (09:45)
[2019-01-06] MEDS: CALCITRIOL 0.25 MCG CAPSULE PO SCH (10:04)
[2019-01-06] MEDS: ASPIRIN 81 MG EC TABLET PO SCH (10:04)
[2019-01-06] MEDS: DOCUSATE SODIUM 100 MG CAPSULE PO SCH ×2 (10:04→20:20)
[2019-01-06] MEDS: CLOPIDOGREL BISULFATE 75 MG TABLET PO SCH (10:04)
[2019-01-06] MEDS: ALLOPURINOL 100 MG TABLET PO SCH (10:04)
[2019-01-06] MEDS: DICLOFENAC SODIUM 1% 100 GM GEL [4GM] TP SCH ×3 (10:05→20:20)
[2019-01-06] MEDS: MUPIROCIN CALCIUM 2% 22 GM OINTMENT NASAL SCH ×2 (10:05→20:20)
[2019-01-06] MEDS: COLCHICINE 0.6 MG TABLET PO SCH (10:05)
[2019-01-06] MEDS: PANTOPRAZOLE SODIUM 40 MG DR TABLET PO SCH (10:17)
[2019-01-06] MEDS: METOPROLOL TARTRATE 25 MG TABLET PO SCH ×3 (11:32→21:00)
[2019-01-06] MEDS: HYDROCODONE/ACETAMINOPHEN 5-325 MG TABLET PO PRN (11:32)
[2019-01-06] MEDS ORDERED: MULTIVITAMINS WITH MINERALS, THERAPEUTIC TABLET PO SCH (12:00)
[2019-01-06 12:54] LABS: GLUCOMETER DEV NAME(LOC) 2WR.1; GLUCOSE,POINT OF CARE 122 MG/DL (70-110)
[2019-01-06] MEDS: INSULIN LISPRO 100 UNITS/ML SQ PRN ×2 (18:02→20:44)
[2019-01-06 18:24] LABS: GLUCOMETER DEV NAME(LOC) 2WR.2; GLUCOSE,POINT OF CARE 156 MG/DL (70-110)
[2019-01-06] MEDS: GABAPENTIN 300 MG CAPSULE PO SCH (20:20)
[2019-01-06] MEDS: CETIRIZINE HCL 10 MG TABLET PO SCH (20:20)
[2019-01-06] MEDS: ATORVASTATIN CALCIUM 40 MG TABLET PO SCH (20:21)
[2019-01-06] MEDS: TEMAZEPAM 7.5 MG CAPSULE PO PRN (20:34)
[2019-01-06 21:58] LABS: GLUCOMETER DEV NAME(LOC) 2WR.2; GLUCOSE,POINT OF CARE 187 MG/DL (70-110)
[2019-01-07] VITALS: BP 90/60
[2019-01-07 01:00] VITALS: BP 94/62
[2019-01-07] MEDS: HYDROCODONE/ACETAMINOPHEN 5-325 MG TABLET PO PRN (01:56)
[2019-01-07] MEDS: 0.9% SODIUM CHLORIDE 10 ML SYRINGE IVP SCH ×2 (03:39→08:39)
[2019-01-07 06:00] VITALS: BP 90/64
[2019-01-07 06:14] LABS: GLUCOMETER DEV NAME(LOC) 2WR.2; GLUCOSE,POINT OF CARE 138 MG/DL (70-110)
[2019-01-07 06:21] LABS: BASOPHILS % (AUTO) 1.1 % (0.0-2.0); EOSINOPHILS % (AUTO) 10.4 % (1.0-6.0); HEMATOCRIT 27.9 % (36-46); HEMOGLOBIN 9.3 g/dL (12.0-16.0); LYMPHOCYTES # (AUTO) 1.9 K/uL (1.0-4.8); LYMPHOCYTES % (AUTO) 30.9 % (22.0-44.0); MEAN CORPUSCULAR HEMOGLOBIN 32.4 pg (26.0-34.0); MEAN CORPUSCULAR HGB CONC 33.3 G/dL (31.0-37.0); MEAN CORPUSCULAR VOLUME 97 fL (80-100); MONOCYTES # (AUTO) 0.4 K/uL (0.1-1.0); MONOCYTES % (AUTO) 5.7 % (2.0-9.0); NEUTROPHILS # (AUTO) 3.2 K/uL (1.8-7.7); NEUTROPHILS % (AUTO) 51.9 % (40.0-70.0); PLATELET COUNT (AUTO) 195 K/uL (150-450); RED BLOOD CELL COUNT(AUTO) 2.87 MIL/uL (4.00-5.20)
[2019-01-07 06:37] LABS: CALCIUM, TOTAL 8.6 mg/dL (8.8-10.5); CREATININE 1.74 mg/dL (0.60-1.30); MAGNESIUM 2.2 mg/dL (1.80-2.40); PHOSPHORUS 4.8 mg/dL (2.5-4.9); POTASSIUM 5.2 mmol/L (3.5-5.1)
[2019-01-07 07:00] VITALS: BP 112/68
[2019-01-07] MEDS ORDERED: SODIUM POLYSTYRENE SULFONATE 15 GM/60 ML SUSPENSION BOTTLE PO ONE (08:00)
[2019-01-07] MEDS ORDERED: DIGOXIN 250 MCG/ML 2 ML AMP IVP ONE (08:00)
[2019-01-07] MEDS: OXYGEN THERAPY IH SCH (08:37)
[2019-01-07] MEDS: PANTOPRAZOLE SODIUM 40 MG DR TABLET PO SCH (08:38)
[2019-01-07] MEDS: DOCUSATE SODIUM 100 MG CAPSULE PO SCH (08:38)
[2019-01-07] MEDS: ASPIRIN 81 MG EC TABLET PO SCH (08:38)
[2019-01-07] MEDS: METOPROLOL TARTRATE 25 MG TABLET PO SCH (08:38)
[2019-01-07] MEDS: COLCHICINE 0.6 MG TABLET PO SCH (08:38)
[2019-01-07] MEDS: ALLOPURINOL 100 MG TABLET PO SCH (08:38)
[2019-01-07] MEDS: CALCITRIOL 0.25 MCG CAPSULE PO SCH (08:38)
[2019-01-07] MEDS: CLOPIDOGREL BISULFATE 75 MG TABLET PO SCH (08:38)
[2019-01-07] MEDS: MUPIROCIN CALCIUM 2% 22 GM OINTMENT NASAL SCH (08:40)
[2019-01-07] MEDS: DICLOFENAC SODIUM 1% 100 GM GEL [4GM] TP SCH (08:40)
[2019-01-07 08:45] VITALS: BP 110/68
[2019-01-07] MEDS ORDERED: VITAMIN B COMP/VIT C/FOLIC ACID CAPSULE PO SCH (09:00)
[2019-01-10] MEDS ORDERED: APIXABAN 5 MG TABLET PO SCH (08:00)
== END 2019-01-07 09:55 | disposition short-term general hospital (02) | DRG 65 ==
LOC: 2WR 19:38
PROVIDERS: ADMIT Physical Medicine & Rehabilitation; ATTEND Physical Medicine & Rehabilitation
DX: I63.513 Cerebral infarction due to unspecified occlusion or stenosis of bilateral middle cerebral arteries (principal); I69.351 Hemiplegia and hemiparesis following cerebral infarction affecting right dominant side; I13.0 Hypertensive heart and chronic kidney disease with heart failure and stage 1 through stage 4 chronic kidney disease, or unspecified chronic kidney disease; I50.30 Unspecified diastolic (congestive) heart failure; N39.0 Urinary tract infection, site not specified; I42.9 Cardiomyopathy, unspecified; Z68.41 Body mass index [BMI] 40.0-44.9, adult; I48.92 Unspecified atrial flutter; B96.20 Unspecified Escherichia coli [E. coli] as the cause of diseases classified elsewhere; E11.22 Type 2 diabetes mellitus with diabetic chronic kidney disease; E78.5 Hyperlipidemia, unspecified; G31.84 Mild cognitive impairment of uncertain or unknown etiology; I25.10 Atherosclerotic heart disease of native coronary artery without angina pectoris; I48.2 Chronic atrial fibrillation; M10.071 Idiopathic gout, right ankle and foot; N18.9 Chronic kidney disease, unspecified; R13.10 Dysphagia, unspecified; D63.1 Anemia in chronic kidney disease; E66.9 Obesity, unspecified; E87.5 Hyperkalemia; G47.00 Insomnia, unspecified; I48.0 Paroxysmal atrial fibrillation; K59.00 Constipation, unspecified; R29.810 Facial weakness; R74.0 Nonspecific elevation of levels of transaminase and lactic acid dehydrogenase [LDH]; T38.0X5A Adverse effect of glucocorticoids and synthetic analogues, initial encounter; M19.90 Unspecified osteoarthritis, unspecified site; M25.571 Pain in right ankle and joints of right foot; M79.604 Pain in right leg; R47.1 Dysarthria and anarthria; Z79.02 Long term (current) use of antithrombotics/antiplatelets; Z79.82 Long term (current) use of aspirin; Z79.84 Long term (current) use of oral hypoglycemic drugs; Z79.899 Other long term (current) drug therapy; Z79.01 Long term (current) use of anticoagulants; Z85.42 Personal history of malignant neoplasm of other parts of uterus; Z90.710 Acquired absence of both cervix and uterus; Z98.84 Bariatric surgery status; Z87.440 Personal history of urinary (tract) infections
CPT/HCPCS: 70551; 83036; 83735; 84100; 84550; 86140; 87081; 92507; 92523; 93005; 93970; 94761; 97112; 97163; 97167; 97530; 97535; 99366; G0238; J0696; J1160; J1940; J7050

== ENCOUNTER 2019-01-07 10:05 | Inpatient (IN) | payer OTHER, MEDICARE ==
[2019-01-07 12:39] VITALS: BP 116/62
[2019-01-07] MEDS ORDERED: ALBUTEROL SULFATE 2.5 MG/0.5 ML NEB SOLUTION NEB PRN (12:45)
[2019-01-07] MEDS ORDERED: IPRATROPIUM BROMIDE 0.5 MG/2.5 ML NEB SOLUTION NEB PRN (12:45)
[2019-01-07] MEDS ORDERED: ONDANSETRON HCL 4 MG/2 ML VIAL IVP PRN (12:45)
[2019-01-07] MEDS ORDERED: ZOLPIDEM TARTRATE 5 MG TABLET PO PRN (12:45)
[2019-01-07] MEDS ORDERED: BISACODYL 10 MG RECTAL RECTAL SUPPOSITORY PR PRN (12:45)
[2019-01-07] MEDS: HYDROCODONE/ACETAMINOPHEN 5-325 MG TABLET PO PRN ×2 (14:46→23:19)
[2019-01-07 16:21] VITALS: BP 112/58
[2019-01-07] MEDS ORDERED: ACETAMINOPHEN 325 MG TABLET PO PRN (17:15)
[2019-01-07] MEDS ORDERED: POLYETHYLENE GLYCOL 3350 17 GM PACKET PO PRN (17:30)
[2019-01-07] MEDS ORDERED: DEXTROSE 50%-WATER 25 GM/50 ML SYRINGE IVP PRN (17:30)
[2019-01-07] MEDS ORDERED: DIGOXIN 250 MCG/ML 2 ML AMP IVP ONE (17:30)
[2019-01-07] MEDS: DICLOFENAC SODIUM 1% 100 GM GEL [4GM] TP SCH ×2 (18:28→20:30)
[2019-01-07 19:42] VITALS: BP 97/54
[2019-01-07] MEDS: METOPROLOL TARTRATE 25 MG TABLET PO SCH (20:26)
[2019-01-07] MEDS: SIMVASTATIN 20 MG TABLET PO SCH (20:29)
[2019-01-07] MEDS: GABAPENTIN 300 MG CAPSULE PO SCH (20:29)
[2019-01-07] MEDS: DOCUSATE SODIUM 250 MG CAPSULE PO SCH (20:30)
[2019-01-07] MEDS: MUPIROCIN CALCIUM 2% 22 GM OINTMENT NASAL SCH (20:30)
[2019-01-07] MEDS: CETIRIZINE HCL 10 MG TABLET PO SCH (20:30)
[2019-01-07] MEDS: APIXABAN 2.5 MG TABLET PO SCH (20:30)
[2019-01-07] MEDS: ATORVASTATIN CALCIUM 40 MG TABLET PO SCH (20:30)
[2019-01-07] MEDS: INSULIN LISPRO 100 UNITS/ML SQ PRN (20:31)
[2019-01-07] MEDS: TEMAZEPAM 7.5 MG CAPSULE PO PRN (20:32)
[2019-01-07 21:04] LABS: GLUCOMETER DEV NAME(LOC) 5N.2; GLUCOSE,POINT OF CARE 190 MG/DL (70-110)
[2019-01-07 23:29] VITALS: BP 109/64
[2019-01-08 05:08] VITALS: BP 110/54
[2019-01-08 06:01] LABS: BASOPHILS % (AUTO) 1.1 % (0.0-2.0); EOSINOPHILS % (AUTO) 9.6 % (1.0-6.0); HEMATOCRIT 26.4 % (36-46); HEMOGLOBIN 8.9 g/dL (12.0-16.0); LYMPHOCYTES # (AUTO) 1.7 K/uL (1.0-4.8); LYMPHOCYTES % (AUTO) 33.3 % (22.0-44.0); MEAN CORPUSCULAR HEMOGLOBIN 32.6 pg (26.0-34.0); MEAN CORPUSCULAR HGB CONC 33.8 G/dL (31.0-37.0); MEAN CORPUSCULAR VOLUME 97 fL (80-100); MONOCYTES # (AUTO) 0.3 K/uL (0.1-1.0); MONOCYTES % (AUTO) 6.6 % (2.0-9.0); NEUTROPHILS # (AUTO) 2.6 K/uL (1.8-7.7); NEUTROPHILS % (AUTO) 49.4 % (40.0-70.0); PLATELET COUNT (AUTO) 211 K/uL (150-450); RED BLOOD CELL COUNT(AUTO) 2.73 MIL/uL (4.00-5.20); RED CELL DISTRIBUTION WIDTH 15.3 % (11.5-14.5)
[2019-01-08 06:45] LABS: ALBUMIN 2.5 g/dL (3.4-5.0); BILIRUBIN,TOTAL 0.3 mg/dL (0.1-1.0); CALCIUM, TOTAL 8.7 mg/dL (8.8-10.5); CHOL/HDL RATIO 2.4 (3.9-5.7); CREATININE 1.58 mg/dL (0.60-1.30); FREE T4 (FREE THYROXINE) 0.94 ng/dL (0.76-1.46); MAGNESIUM 2.4 mg/dL (1.80-2.40); POTASSIUM 4.7 mmol/L (3.5-5.1); THYROID STIMULATING HORMONE 4.57 uIU/mL (0.36-3.74)
[2019-01-08 06:48] LABS: HEMOGLOBIN A1C 6.6 % (4.5-6.2)
[2019-01-08 06:48] LABS: GLUCOMETER DEV NAME(LOC) 5N.2; GLUCOSE,POINT OF CARE 125 MG/DL (70-110)
[2019-01-08 06:54] LABS: URIC ACID 6.9 mg/dL (2.6-7.2)
[2019-01-08 07:41] VITALS: BP 107/82
[2019-01-08] MEDS ORDERED: FUROSEMIDE 20 MG/2 ML VIAL IVP ONE (08:00)
[2019-01-08 08:13] LABS: ERYTHROCYTE SEDIMENTATION RATE 50 MM/HR (0-20)
[2019-01-08] MEDS: MUPIROCIN CALCIUM 2% 22 GM OINTMENT NASAL SCH (08:40)
[2019-01-08] MEDS: APIXABAN 2.5 MG TABLET PO SCH ×2 (08:41→09:37)
[2019-01-08] MEDS: DOCUSATE SODIUM 250 MG CAPSULE PO SCH ×2 (08:41→20:44)
[2019-01-08] MEDS: CHOLECALCIFEROL (VIT D3) 1,000 UNITS TABLET PO SCH (08:41)
[2019-01-08] MEDS: COLCHICINE 0.6 MG TABLET PO SCH (08:42)
[2019-01-08] MEDS: ALLOPURINOL 100 MG TABLET PO SCH (08:42)
[2019-01-08] MEDS: MULTIVITAMINS WITH MINERALS, THERAPEUTIC TABLET PO SCH (08:42)
[2019-01-08] MEDS: PANTOPRAZOLE SODIUM 40 MG DR TABLET PO SCH (08:43)
[2019-01-08] MEDS: SOTALOL HCL 80 MG TABLET PO SCH ×2 (09:00→23:07)
[2019-01-08] MEDS ORDERED: ASPIRIN 81 MG EC TABLET PO SCH (09:00)
[2019-01-08] MEDS ORDERED: CLOPIDOGREL BISULFATE 75 MG TABLET PO SCH (09:00)
[2019-01-08] MEDS: SENNA 187 MG TABLET PO SCH (09:37)
[2019-01-08] MEDS: CALCITRIOL 0.25 MCG CAPSULE PO SCH (09:37)
[2019-01-08] MEDS: VITAMIN B COMP/VIT C/FOLIC ACID CAPSULE PO SCH (09:37)
[2019-01-08] MEDS: METOPROLOL TARTRATE 25 MG TABLET PO SCH ×2 (09:37→20:47)
[2019-01-08] MEDS: DICLOFENAC SODIUM 1% 100 GM GEL [4GM] TP SCH ×3 (11:29→20:45)
[2019-01-08] MEDS: INSULIN LISPRO 100 UNITS/ML SQ PRN ×2 (12:04→21:03)
[2019-01-08 12:49] LABS: GLUCOMETER DEV NAME(LOC) 5N.2; GLUCOSE,POINT OF CARE 144 MG/DL (70-110)
[2019-01-08 13:00] VITALS: BP 103/80
[2019-01-08] MEDS: HYDROCODONE/ACETAMINOPHEN 5-325 MG TABLET PO PRN ×2 (14:33→21:10)
[2019-01-08 16:21] VITALS: BP 87/47
[2019-01-08 18:07] VITALS: BP 105/58
[2019-01-08 19:30] VITALS: BP 92/49
[2019-01-08] MEDS: GABAPENTIN 300 MG CAPSULE PO SCH (20:44)
[2019-01-08] MEDS: ATORVASTATIN CALCIUM 40 MG TABLET PO SCH (20:44)
[2019-01-08] MEDS: TEMAZEPAM 7.5 MG CAPSULE PO PRN (20:44)
[2019-01-08] MEDS: CETIRIZINE HCL 10 MG TABLET PO SCH (20:44)
[2019-01-08] MEDS: SIMVASTATIN 20 MG TABLET PO SCH (20:47)
[2019-01-08] MEDS: APIXABAN 5 MG TABLET PO SCH (23:07)
[2019-01-09 00:17] VITALS: BP 101/61
[2019-01-09] MEDS: HYDROCODONE/ACETAMINOPHEN 5-325 MG TABLET PO PRN (04:36)
[2019-01-09 05:21] VITALS: BP 101/53
[2019-01-09 06:09] LABS: HEMATOCRIT 26.1 % (36-46); HEMOGLOBIN 8.8 g/dL (12.0-16.0); LYMPHOCYTES # (AUTO) 1.3 K/uL (1.0-4.8); LYMPHOCYTES % (AUTO) 27.4 % (22.0-44.0); MEAN CORPUSCULAR HEMOGLOBIN 32.5 pg (26.0-34.0); MEAN CORPUSCULAR HGB CONC 33.5 G/dL (31.0-37.0); MEAN CORPUSCULAR VOLUME 97 fL (80-100); MONOCYTES # (AUTO) 0.4 K/uL (0.1-1.0); MONOCYTES % (AUTO) 7.2 % (2.0-9.0); NEUTROPHILS # (AUTO) 2.7 K/uL (1.8-7.7); NEUTROPHILS % (AUTO) 54.4 % (40.0-70.0); PLATELET COUNT (AUTO) 213 K/uL (150-450); RED CELL DISTRIBUTION WIDTH 15.6 % (11.5-14.5)
[2019-01-09 06:27] LABS: ALBUMIN 2.5 g/dL (3.4-5.0); BILIRUBIN,TOTAL 0.3 mg/dL (0.1-1.0); CALCIUM, TOTAL 8.7 mg/dL (8.8-10.5); CREATININE 1.65 mg/dL (0.60-1.30); MAGNESIUM 2.5 mg/dL (1.80-2.40); PHOSPHORUS 5.1 mg/dL (2.5-4.9); POTASSIUM 4.7 mmol/L (3.5-5.1); TOTAL PROTEIN, SERUM 6.9 g/dL (6.4-8.2)
[2019-01-09 07:21] VITALS: BP 98/48
[2019-01-09 07:29] LABS: GLUCOMETER DEV NAME(LOC) 5S.2; GLUCOSE,POINT OF CARE 124 MG/DL (70-110)
[2019-01-09 07:29] LABS: GLUCOMETER DEV NAME(LOC) 5S.2; GLUCOSE,POINT OF CARE 147 MG/DL (70-110)
[2019-01-09] MEDS: METOPROLOL TARTRATE 25 MG TABLET PO SCH (09:00)
[2019-01-09] MEDS: MULTIVITAMINS WITH MINERALS, THERAPEUTIC TABLET PO SCH (09:20)
[2019-01-09] MEDS: ALLOPURINOL 100 MG TABLET PO SCH (09:21)
[2019-01-09] MEDS: SENNA 187 MG TABLET PO SCH (09:21)
[2019-01-09] MEDS: SOTALOL HCL 80 MG TABLET PO SCH (09:21)
[2019-01-09] MEDS: PANTOPRAZOLE SODIUM 40 MG DR TABLET PO SCH (09:22)
[2019-01-09] MEDS: DOCUSATE SODIUM 250 MG CAPSULE PO SCH (09:22)
[2019-01-09] MEDS: CALCITRIOL 0.25 MCG CAPSULE PO SCH (09:22)
[2019-01-09] MEDS: CHOLECALCIFEROL (VIT D3) 1,000 UNITS TABLET PO SCH (09:22)
[2019-01-09] MEDS: COLCHICINE 0.6 MG TABLET PO SCH (09:23)
[2019-01-09] MEDS: APIXABAN 5 MG TABLET PO SCH (09:24)
[2019-01-09] MEDS: VITAMIN B COMP/VIT C/FOLIC ACID CAPSULE PO SCH (09:27)
[2019-01-09] MEDS ORDERED: DIGOXIN 250 MCG/ML 2 ML AMP IVP ONE (09:45)
[2019-01-09] MEDS ORDERED: CALCIUM ACETATE 667 MG CAPSULE PO SCH (12:00)
[2019-01-12 16:33] LABS: GLUCOMETER DEV NAME(LOC) 5S.2; GLUCOSE,POINT OF CARE 116 MG/DL (70-110)
[2019-01-12 16:33] LABS: GLUCOMETER DEV NAME(LOC) 5N.2; GLUCOSE,POINT OF CARE 139 MG/DL (70-110)
[2019-01-12 16:33] LABS: GLUCOMETER DEV NAME(LOC) 5N.2; GLUCOSE,POINT OF CARE 96 MG/DL (70-110)
== END 2019-01-09 11:20 | DRG 308 ==
LOC: 5N 10:05
PROVIDERS: ADMIT Internal Medicine Geriatric Medicine; ATTEND Internal Medicine Geriatric Medicine
DX: I48.0 Paroxysmal atrial fibrillation (principal); I63.519 Cerebral infarction due to unspecified occlusion or stenosis of unspecified middle cerebral artery; N17.9 Acute kidney failure, unspecified; I13.0 Hypertensive heart and chronic kidney disease with heart failure and stage 1 through stage 4 chronic kidney disease, or unspecified chronic kidney disease; N39.0 Urinary tract infection, site not specified; N18.9 Chronic kidney disease, unspecified; I25.10 Atherosclerotic heart disease of native coronary artery without angina pectoris; E66.01 Morbid (severe) obesity due to excess calories; B96.20 Unspecified Escherichia coli [E. coli] as the cause of diseases classified elsewhere; D63.1 Anemia in chronic kidney disease; E11.22 Type 2 diabetes mellitus with diabetic chronic kidney disease; E78.5 Hyperlipidemia, unspecified; E83.39 Other disorders of phosphorus metabolism; E87.5 Hyperkalemia; G47.33 Obstructive sleep apnea (adult) (pediatric); I50.9 Heart failure, unspecified; J30.9 Allergic rhinitis, unspecified; M10.9 Gout, unspecified; R13.12 Dysphagia, oropharyngeal phase; Z22.322 Carrier or suspected carrier of Methicillin resistant Staphylococcus aureus; Z79.01 Long term (current) use of anticoagulants; Z79.84 Long term (current) use of oral hypoglycemic drugs; Z79.899 Other long term (current) drug therapy; Z82.49 Family history of ischemic heart disease and other diseases of the circulatory system; Z85.42 Personal history of malignant neoplasm of other parts of uterus; Z87.440 Personal history of urinary (tract) infections; Z90.710 Acquired absence of both cervix and uterus
CPT/HCPCS: 83036; 83735; 84100; 84439; 84443; 84550; 85651; 87081; 93005; 93306; 93880; 97166; 97530; G0378; J1160; J1940

== ENCOUNTER 2019-01-09 11:40 | Inpatient (IN) | payer OTHER, MEDICARE ==
[~2019-01-09] VITALS: Ht 152.4 cm; Wt 95.3 kg
[2019-01-09 14:29] VITALS: BP 88/39
[2019-01-09 15:10] VITALS: BP 96/52
[2019-01-09] MEDS ORDERED: MULTIVITAMINS WITH MINERALS, THERAPEUTIC TABLET PO ONE (15:30)
[2019-01-09] MEDS ORDERED: DEXTROSE 50%-WATER 25 GM/50 ML SYRINGE IVP PRN ×2 (15:30)
[2019-01-09] MEDS ORDERED: INSULIN LISPRO 100 UNITS/ML SQ PRN (15:30)
[2019-01-09 15:41] VITALS: BP 96/52
[2019-01-09] MEDS ORDERED: BISACODYL 5 MG EC TABLET PO PRN (16:00)
[2019-01-09] MEDS ORDERED: ONDANSETRON HCL 4 MG TABLET PO PRN (16:00)
[2019-01-09] MEDS ORDERED: POLYETHYLENE GLYCOL 3350 17 GM PACKET PO PRN (16:00)
[2019-01-09] MEDS: HYDROCODONE/ACETAMINOPHEN 5-325 MG TABLET PO PRN (16:24)
[2019-01-09] MEDS: DICLOFENAC SODIUM 1% 100 GM GEL [4GM] TP SCH ×2 (16:24→22:01)
[2019-01-09 18:44] LABS: GLUCOMETER DEV NAME(LOC) 2WR.2; GLUCOSE,POINT OF CARE 103 MG/DL (70-110)
[2019-01-09] MEDS: DOCUSATE SODIUM 250 MG CAPSULE PO SCH (22:00)
[2019-01-09] MEDS: METOPROLOL TARTRATE 25 MG TABLET PO SCH (22:00)
[2019-01-09] MEDS: ATORVASTATIN CALCIUM 40 MG TABLET PO SCH (22:01)
[2019-01-09] MEDS: TEMAZEPAM 7.5 MG CAPSULE PO PRN (22:01)
[2019-01-09] MEDS: GABAPENTIN 300 MG CAPSULE PO SCH (22:01)
[2019-01-09] MEDS: APIXABAN 5 MG TABLET PO SCH (22:01)
[2019-01-09] MEDS: CETIRIZINE HCL 10 MG TABLET PO SCH (22:01)
[2019-01-09] MEDS: SOTALOL HCL 80 MG TABLET PO SCH (22:02)
[2019-01-09 22:48] LABS: GLUCOMETER DEV NAME(LOC) 2WR.2; GLUCOSE,POINT OF CARE 100 MG/DL (70-110)
[2019-01-10 06:00] VITALS: BP 104/60
[2019-01-10 06:08] LABS: GLUCOMETER DEV NAME(LOC) 2WR.2; GLUCOSE,POINT OF CARE 115 MG/DL (70-110)
[2019-01-10 07:13] LABS: CREATININE 1.8 mg/dL (0.60-1.30); POTASSIUM 4.8 mmol/L (3.5-5.1)
[2019-01-10 07:16] LABS: BASOPHILS % (AUTO) 0.7 % (0.0-2.0); EOSINOPHILS % (AUTO) 11.4 % (1.0-6.0); HEMATOCRIT 27.5 % (36-46); LYMPHOCYTES # (AUTO) 1.4 K/uL (1.0-4.8); LYMPHOCYTES % (AUTO) 30.7 % (22.0-44.0); MEAN CORPUSCULAR HEMOGLOBIN 32.7 pg (26.0-34.0); MEAN CORPUSCULAR HGB CONC 32.9 G/dL (31.0-37.0); MEAN CORPUSCULAR VOLUME 99 fL (80-100); MONOCYTES # (AUTO) 0.3 K/uL (0.1-1.0); NEUTROPHILS # (AUTO) 2.3 K/uL (1.8-7.7); NEUTROPHILS % (AUTO) 50.2 % (40.0-70.0); PLATELET COUNT (AUTO) 215 K/uL (150-450); RED BLOOD CELL COUNT(AUTO) 2.76 MIL/uL (4.00-5.20); RED CELL DISTRIBUTION WIDTH 15.8 % (11.5-14.5)
[2019-01-10 08:30] VITALS: BP 99/58
[2019-01-10] MEDS: METOPROLOL TARTRATE 25 MG TABLET PO SCH ×3 (09:00→21:00)
[2019-01-10] MEDS: COLCHICINE 0.6 MG TABLET PO SCH (09:00)
[2019-01-10] MEDS ORDERED: SENNA 187 MG TABLET PO SCH ×2 (09:00→21:00)
[2019-01-10] MEDS: ALLOPURINOL 100 MG TABLET PO SCH (09:01)
[2019-01-10] MEDS: CHOLECALCIFEROL (VIT D3) 1,000 UNITS TABLET PO SCH (09:01)
[2019-01-10] MEDS: CALCITRIOL 0.25 MCG CAPSULE PO SCH (09:01)
[2019-01-10] MEDS: DOCUSATE SODIUM 250 MG CAPSULE PO SCH ×2 (09:01→20:54)
[2019-01-10] MEDS: APIXABAN 5 MG TABLET PO SCH ×2 (09:02→20:54)
[2019-01-10] MEDS: PANTOPRAZOLE SODIUM 40 MG DR TABLET PO SCH (09:03)
[2019-01-10] MEDS: SIMVASTATIN 20 MG TABLET PO SCH (09:03)
[2019-01-10] MEDS: DICLOFENAC SODIUM 1% 100 GM GEL [4GM] TP SCH ×3 (09:04→20:53)
[2019-01-10] MEDS: SOTALOL HCL 80 MG TABLET PO SCH ×2 (09:04→20:54)
[2019-01-10] MEDS: VITAMIN B COMP/VIT C/FOLIC ACID CAPSULE PO SCH (09:06)
[2019-01-10] MEDS: HYDROCODONE/ACETAMINOPHEN 5-325 MG TABLET PO PRN ×3 (11:36→20:57)
[2019-01-10 13:13] LABS: GLUCOMETER DEV NAME(LOC) 2WR.1; GLUCOSE,POINT OF CARE 106 MG/DL (70-110)
[2019-01-10 15:23] VITALS: BP 91/50
[2019-01-10 16:40] VITALS: BP 98/52
[2019-01-10 18:24] LABS: GLUCOMETER DEV NAME(LOC) 2WR.2; GLUCOSE,POINT OF CARE 108 MG/DL (70-110)
[2019-01-10] MEDS: GABAPENTIN 300 MG CAPSULE PO SCH (20:54)
[2019-01-10] MEDS: ATORVASTATIN CALCIUM 40 MG TABLET PO SCH (20:54)
[2019-01-10] MEDS: TEMAZEPAM 7.5 MG CAPSULE PO PRN (20:54)
[2019-01-10] MEDS: CETIRIZINE HCL 10 MG TABLET PO SCH (20:54)
[2019-01-10 21:00] VITALS: BP 92/42
[2019-01-10] MEDS: INSULIN LISPRO 100 UNITS/ML SQ PRN (21:15)
[2019-01-10 21:34] LABS: GLUCOMETER DEV NAME(LOC) 2WR.1; GLUCOSE,POINT OF CARE 203 MG/DL (70-110)
[2019-01-11] MEDS: 0.9% SODIUM CHLORIDE 10 ML SYRINGE IVP SCH ×3 (01:29→20:06)
[2019-01-11 03:04] VITALS: BP 98/56
[2019-01-11 06:14] LABS: GLUCOMETER DEV NAME(LOC) 2WR.1; GLUCOSE,POINT OF CARE 106 MG/DL (70-110)
[2019-01-11 06:15] LABS: EOSINOPHILS % (AUTO) 9.7 % (1.0-6.0); HEMOGLOBIN 8.4 g/dL (12.0-16.0); LYMPHOCYTES # (AUTO) 1.3 K/uL (1.0-4.8); LYMPHOCYTES % (AUTO) 32.9 % (22.0-44.0); MEAN CORPUSCULAR HEMOGLOBIN 32.9 pg (26.0-34.0); MEAN CORPUSCULAR HGB CONC 33.7 G/dL (31.0-37.0); MEAN CORPUSCULAR VOLUME 98 fL (80-100); MONOCYTES # (AUTO) 0.3 K/uL (0.1-1.0); MONOCYTES % (AUTO) 7.1 % (2.0-9.0); NEUTROPHILS # (AUTO) 1.9 K/uL (1.8-7.7); NEUTROPHILS % (AUTO) 49.3 % (40.0-70.0); PLATELET COUNT (AUTO) 220 K/uL (150-450); RED BLOOD CELL COUNT(AUTO) 2.57 MIL/uL (4.00-5.20); RED CELL DISTRIBUTION WIDTH 15.6 % (11.5-14.5)
[2019-01-11 06:49] LABS: ALBUMIN 2.4 g/dL (3.4-5.0); BILIRUBIN,TOTAL 0.3 mg/dL (0.1-1.0); CALCIUM, TOTAL 8.7 mg/dL (8.8-10.5); CREATININE 2.02 mg/dL (0.60-1.30); MAGNESIUM 2.7 mg/dL (1.80-2.40); POTASSIUM 4.6 mmol/L (3.5-5.1); TOTAL PROTEIN, SERUM 7.1 g/dL (6.4-8.2)
[2019-01-11 07:49] VITALS: BP 102/80
[2019-01-11] MEDS: CALCITRIOL 0.25 MCG CAPSULE PO SCH (08:16)
[2019-01-11] MEDS: ALLOPURINOL 100 MG TABLET PO SCH (08:17)
[2019-01-11] MEDS: SOTALOL HCL 80 MG TABLET PO SCH ×2 (08:17→20:23)
[2019-01-11] MEDS: PANTOPRAZOLE SODIUM 40 MG DR TABLET PO SCH (08:18)
[2019-01-11] MEDS: COLCHICINE 0.6 MG TABLET PO SCH (08:19)
[2019-01-11] MEDS: DICLOFENAC SODIUM 1% 100 GM GEL [4GM] TP SCH ×3 (08:19→20:22)
[2019-01-11] MEDS: VITAMIN B COMP/VIT C/FOLIC ACID CAPSULE PO SCH (08:19)
[2019-01-11] MEDS: CHOLECALCIFEROL (VIT D3) 1,000 UNITS TABLET PO SCH (08:19)
[2019-01-11] MEDS: SIMVASTATIN 20 MG TABLET PO SCH (08:19)
[2019-01-11] MEDS: APIXABAN 5 MG TABLET PO SCH ×2 (08:20→20:21)
[2019-01-11] MEDS: DOCUSATE SODIUM 250 MG CAPSULE PO SCH ×2 (08:22→20:22)
[2019-01-11] MEDS: METOPROLOL TARTRATE 25 MG TABLET PO SCH ×2 (08:27→20:22)
[2019-01-11] MEDS ORDERED: MULTIVITAMINS WITH MINERALS, THERAPEUTIC TABLET PO SCH (09:00)
[2019-01-11] MEDS: HYDROCODONE/ACETAMINOPHEN 5-325 MG TABLET PO PRN ×3 (09:20→20:23)
[2019-01-11 13:08] LABS: GLUCOMETER DEV NAME(LOC) 2WR.1; GLUCOSE,POINT OF CARE 173 MG/DL (70-110)
[2019-01-11 15:54] VITALS: BP 102/57
[2019-01-11] MEDS: POLYETHYLENE GLYCOL 3350 17 GM PACKET PO SCH (17:22)
[2019-01-11 17:54] LABS: GLUCOMETER DEV NAME(LOC) 2WR.1; GLUCOSE,POINT OF CARE 94 MG/DL (70-110)
[2019-01-11] MEDS: SENNA 187 MG TABLET PO SCH (20:21)
[2019-01-11] MEDS: GABAPENTIN 300 MG CAPSULE PO SCH (20:21)
[2019-01-11] MEDS: TEMAZEPAM 7.5 MG CAPSULE PO PRN (20:21)
[2019-01-11 20:22] VITALS: BP 113/61
[2019-01-11] MEDS: ATORVASTATIN CALCIUM 40 MG TABLET PO SCH (20:22)
[2019-01-11] MEDS: CETIRIZINE HCL 10 MG TABLET PO SCH (20:23)
[2019-01-11 21:29] LABS: GLUCOMETER DEV NAME(LOC) 2WR.1; GLUCOSE,POINT OF CARE 156 MG/DL (70-110)
[2019-01-12 02:45] VITALS: BP 97/58
[2019-01-12 06:14] LABS: GLUCOMETER DEV NAME(LOC) 2WR.2; GLUCOSE,POINT OF CARE 109 MG/DL (70-110)
[2019-01-12 07:25] VITALS: BP 103/49
[2019-01-12 07:32] LABS: EOSINOPHILS % (AUTO) 9.9 % (1.0-6.0); HEMATOCRIT 26.1 % (36-46); HEMOGLOBIN 8.6 g/dL (12.0-16.0); LYMPHOCYTES # (AUTO) 1.2 K/uL (1.0-4.8); LYMPHOCYTES % (AUTO) 25.5 % (22.0-44.0); MEAN CORPUSCULAR HEMOGLOBIN 32.8 pg (26.0-34.0); MEAN CORPUSCULAR VOLUME 99 fL (80-100); MONOCYTES # (AUTO) 0.3 K/uL (0.1-1.0); MONOCYTES % (AUTO) 6.2 % (2.0-9.0); NEUTROPHILS # (AUTO) 2.6 K/uL (1.8-7.7); NEUTROPHILS % (AUTO) 57.4 % (40.0-70.0); PLATELET COUNT (AUTO) 235 K/uL (150-450); RED BLOOD CELL COUNT(AUTO) 2.63 MIL/uL (4.00-5.20); RED CELL DISTRIBUTION WIDTH 15.7 % (11.5-14.5)
[2019-01-12 07:37] LABS: % IRON SATURATION 15.2 % (22-44)
[2019-01-12 07:52] LABS: ALBUMIN 2.7 g/dL (3.4-5.0); BILIRUBIN,TOTAL 0.3 mg/dL (0.1-1.0); CREATININE 1.88 mg/dL (0.60-1.30); MAGNESIUM 2.6 mg/dL (1.80-2.40); PHOSPHORUS 4.9 mg/dL (2.5-4.9); POTASSIUM 4.8 mmol/L (3.5-5.1); TOTAL PROTEIN, SERUM 7.6 g/dL (6.4-8.2)
[2019-01-12] MEDS: PANTOPRAZOLE SODIUM 40 MG DR TABLET PO SCH (08:31)
[2019-01-12] MEDS: ALLOPURINOL 100 MG TABLET PO SCH (08:31)
[2019-01-12] MEDS: CALCITRIOL 0.25 MCG CAPSULE PO SCH (08:31)
[2019-01-12] MEDS: DOCUSATE SODIUM 250 MG CAPSULE PO SCH ×2 (08:31→20:53)
[2019-01-12] MEDS: COLCHICINE 0.6 MG TABLET PO SCH (08:31)
[2019-01-12] MEDS: SIMVASTATIN 20 MG TABLET PO SCH (08:31)
[2019-01-12] MEDS: SOTALOL HCL 80 MG TABLET PO SCH ×2 (08:31→20:54)
[2019-01-12] MEDS: DICLOFENAC SODIUM 1% 100 GM GEL [4GM] TP SCH ×3 (08:32→20:54)
[2019-01-12] MEDS: APIXABAN 5 MG TABLET PO SCH ×2 (08:32→20:53)
[2019-01-12] MEDS: HYDROCODONE/ACETAMINOPHEN 5-325 MG TABLET PO PRN ×3 (08:32→20:55)
[2019-01-12] MEDS: CHOLECALCIFEROL (VIT D3) 1,000 UNITS TABLET PO SCH (08:32)
[2019-01-12 12:34] LABS: GLUCOMETER DEV NAME(LOC) 2WR.2; GLUCOSE,POINT OF CARE 128 MG/DL (70-110)
[2019-01-12] MEDS: VITAMIN B COMP/VIT C/FOLIC ACID CAPSULE PO SCH (13:24)
[2019-01-12] MEDS: POLYETHYLENE GLYCOL 3350 17 GM PACKET PO SCH (13:24)
[2019-01-12] MEDS: COLD CREAM, SKIN EMOLLIENT 340 GM JAR TP SCH ×2 (14:39→20:54)
[2019-01-12 15:45] VITALS: BP 102/66
[2019-01-12 17:54] LABS: GLUCOMETER DEV NAME(LOC) 2WR.1; GLUCOSE,POINT OF CARE 105 MG/DL (70-110)
[2019-01-12 20:41] VITALS: BP 117/62
[2019-01-12] MEDS: ATORVASTATIN CALCIUM 40 MG TABLET PO SCH (20:53)
[2019-01-12] MEDS: CETIRIZINE HCL 10 MG TABLET PO SCH (20:53)
[2019-01-12] MEDS: SENNA 187 MG TABLET PO SCH (20:53)
[2019-01-12] MEDS: METOPROLOL TARTRATE 25 MG TABLET PO SCH (20:53)
[2019-01-12] MEDS: GABAPENTIN 300 MG CAPSULE PO SCH (20:53)
[2019-01-12 21:59] LABS: GLUCOMETER DEV NAME(LOC) 2WR.1; GLUCOSE,POINT OF CARE 112 MG/DL (70-110)
[2019-01-13 03:00] VITALS: BP 137/59
[2019-01-13] MEDS: HYDROCODONE/ACETAMINOPHEN 5-325 MG TABLET PO PRN ×4 (03:57→20:43)
[2019-01-13 05:54] LABS: GLUCOMETER DEV NAME(LOC) 2WR.1; GLUCOSE,POINT OF CARE 109 MG/DL (70-110)
[2019-01-13 06:05] LABS: BASOPHILS % (AUTO) 0.9 % (0.0-2.0); EOSINOPHILS % (AUTO) 10.1 % (1.0-6.0); HEMOGLOBIN 7.7 g/dL (12.0-16.0); LYMPHOCYTES # (AUTO) 1.1 K/uL (1.0-4.8); LYMPHOCYTES % (AUTO) 29.9 % (22.0-44.0); MEAN CORPUSCULAR HEMOGLOBIN 32.9 pg (26.0-34.0); MEAN CORPUSCULAR HGB CONC 33.6 G/dL (31.0-37.0); MEAN CORPUSCULAR VOLUME 98 fL (80-100); MONOCYTES # (AUTO) 0.3 K/uL (0.1-1.0); MONOCYTES % (AUTO) 7.6 % (2.0-9.0); NEUTROPHILS # (AUTO) 1.9 K/uL (1.8-7.7); NEUTROPHILS % (AUTO) 51.5 % (40.0-70.0); PLATELET COUNT (AUTO) 199 K/uL (150-450); RED BLOOD CELL COUNT(AUTO) 2.35 MIL/uL (4.00-5.20); RED CELL DISTRIBUTION WIDTH 16.1 % (11.5-14.5)
[2019-01-13 06:35] LABS: ALBUMIN 2.6 g/dL (3.4-5.0); BILIRUBIN,TOTAL 0.3 mg/dL (0.1-1.0); CALCIUM, TOTAL 8.6 mg/dL (8.8-10.5); CREATININE 1.94 mg/dL (0.60-1.30); MAGNESIUM 2.5 mg/dL (1.80-2.40); POTASSIUM 5.1 mmol/L (3.5-5.1)
[2019-01-13 07:00] VITALS: BP 97/63
[2019-01-13] MEDS: SIMVASTATIN 20 MG TABLET PO SCH (08:57)
[2019-01-13] MEDS: POLYETHYLENE GLYCOL 3350 17 GM PACKET PO SCH (08:57)
[2019-01-13] MEDS: DOCUSATE SODIUM 250 MG CAPSULE PO SCH ×2 (08:57→21:14)
[2019-01-13] MEDS: CALCITRIOL 0.25 MCG CAPSULE PO SCH (08:57)
[2019-01-13] MEDS: PANTOPRAZOLE SODIUM 40 MG DR TABLET PO SCH (08:58)
[2019-01-13] MEDS: APIXABAN 5 MG TABLET PO SCH ×2 (08:58→21:14)
[2019-01-13] MEDS: ALLOPURINOL 100 MG TABLET PO SCH (08:58)
[2019-01-13] MEDS: CHOLECALCIFEROL (VIT D3) 1,000 UNITS TABLET PO SCH (08:58)
[2019-01-13] MEDS: VITAMIN B COMP/VIT C/FOLIC ACID CAPSULE PO SCH (08:59)
[2019-01-13] MEDS: DICLOFENAC SODIUM 1% 100 GM GEL [4GM] TP SCH ×3 (08:59→21:13)
[2019-01-13] MEDS: COLCHICINE 0.6 MG TABLET PO SCH (09:00)
[2019-01-13] MEDS: SOTALOL HCL 80 MG TABLET PO SCH ×2 (09:00→21:20)
[2019-01-13] MEDS ORDERED: SOD FERRIC GLUC COMPLX/SUCROSE 125 MG in SODIUM CHLORIDE 0.9% 100 ML IV SCH (09:00)
[2019-01-13] MEDS: COLD CREAM, SKIN EMOLLIENT 340 GM JAR TP SCH ×2 (09:01→21:15)
[2019-01-13] MEDS ORDERED: SODIUM CHLORIDE 0.9% 100 ML ONE (10:14)
[2019-01-13] MEDS: EPOETIN ALFA 10,000 UNITS/ML VIAL SQ SCH (11:25)
[2019-01-13 16:00] VITALS: BP 98/51
[2019-01-13 16:44] LABS: GLUCOMETER DEV NAME(LOC) 2WR.2; GLUCOSE,POINT OF CARE 177 MG/DL (70-110)
[2019-01-13 18:41] LABS: GLUCOMETER DEV NAME(LOC) 2WR.2; GLUCOSE,POINT OF CARE 110 MG/DL (70-110)
[2019-01-13] MEDS: METOPROLOL TARTRATE 25 MG TABLET PO SCH (21:00)
[2019-01-13] MEDS: GABAPENTIN 300 MG CAPSULE PO SCH (21:14)
[2019-01-13] MEDS: CETIRIZINE HCL 10 MG TABLET PO SCH (21:14)
[2019-01-13] MEDS: ATORVASTATIN CALCIUM 40 MG TABLET PO SCH (21:14)
[2019-01-13] MEDS: SENNA 187 MG TABLET PO SCH (21:14)
[2019-01-13] MEDS: TEMAZEPAM 7.5 MG CAPSULE PO PRN (21:25)
[2019-01-13 21:43] VITALS: BP 111/66
[2019-01-13 22:16] LABS: GLUCOMETER DEV NAME(LOC) 2WR.2; GLUCOSE,POINT OF CARE 119 MG/DL (70-110)
[2019-01-14] MEDS: 0.9% SODIUM CHLORIDE 10 ML SYRINGE IVP SCH ×3 (02:23→16:01)
[2019-01-14 04:30] VITALS: BP 94/50
[2019-01-14 06:30] LABS: GLUCOMETER DEV NAME(LOC) 2WR.2; GLUCOSE,POINT OF CARE 103 MG/DL (70-110)
[2019-01-14 06:33] LABS: BASOPHILS % (AUTO) 1.3 % (0.0-2.0); EOSINOPHILS % (AUTO) 9.9 % (1.0-6.0); HEMATOCRIT 22.8 % (36-46); HEMOGLOBIN 7.7 g/dL (12.0-16.0); LYMPHOCYTES # (AUTO) 1.1 K/uL (1.0-4.8); LYMPHOCYTES % (AUTO) 33.4 % (22.0-44.0); MEAN CORPUSCULAR HEMOGLOBIN 32.7 pg (26.0-34.0); MEAN CORPUSCULAR HGB CONC 33.7 G/dL (31.0-37.0); MEAN CORPUSCULAR VOLUME 97 fL (80-100); MONOCYTES # (AUTO) 0.2 K/uL (0.1-1.0); MONOCYTES % (AUTO) 7.3 % (2.0-9.0); NEUTROPHILS # (AUTO) 1.5 K/uL (1.8-7.7); NEUTROPHILS % (AUTO) 48.1 % (40.0-70.0); PLATELET COUNT (AUTO) 201 K/uL (150-450); RED BLOOD CELL COUNT(AUTO) 2.34 MIL/uL (4.00-5.20); RED CELL DISTRIBUTION WIDTH 15.7 % (11.5-14.5)
[2019-01-14 07:02] LABS: CALCIUM, TOTAL 8.7 mg/dL (8.8-10.5); CREATININE 1.87 mg/dL (0.60-1.30); MAGNESIUM 2.6 mg/dL (1.80-2.40); PHOSPHORUS 5.6 mg/dL (2.5-4.9); POTASSIUM 4.8 mmol/L (3.5-5.1)
[2019-01-14 07:28] VITALS: BP 93/63
[2019-01-14] MEDS: COLD CREAM, SKIN EMOLLIENT 340 GM JAR TP SCH ×2 (09:00→21:09)
[2019-01-14 09:02] VITALS: BP 95/50
[2019-01-14] MEDS: DOCUSATE SODIUM 250 MG CAPSULE PO SCH ×2 (09:02→21:08)
[2019-01-14] MEDS: APIXABAN 5 MG TABLET PO SCH ×2 (09:02→21:07)
[2019-01-14] MEDS: CHOLECALCIFEROL (VIT D3) 1,000 UNITS TABLET PO SCH (09:02)
[2019-01-14] MEDS: POLYETHYLENE GLYCOL 3350 17 GM PACKET PO SCH (09:02)
[2019-01-14] MEDS: HYDROCODONE/ACETAMINOPHEN 5-325 MG TABLET PO PRN ×3 (09:02→21:06)
[2019-01-14] MEDS: ALLOPURINOL 100 MG TABLET PO SCH (09:02)
[2019-01-14] MEDS: VITAMIN B COMP/VIT C/FOLIC ACID CAPSULE PO SCH (09:02)
[2019-01-14] MEDS: PANTOPRAZOLE SODIUM 40 MG DR TABLET PO SCH (09:02)
[2019-01-14] MEDS: CALCITRIOL 0.25 MCG CAPSULE PO SCH (09:02)
[2019-01-14] MEDS: COLCHICINE 0.6 MG TABLET PO SCH (09:03)
[2019-01-14] MEDS: DICLOFENAC SODIUM 1% 100 GM GEL [4GM] TP SCH ×3 (09:03→21:09)
[2019-01-14] MEDS: SIMVASTATIN 20 MG TABLET PO SCH (09:03)
[2019-01-14] MEDS: SOTALOL HCL 80 MG TABLET PO SCH ×2 (09:03→21:07)
[2019-01-14 13:33] LABS: GLUCOMETER DEV NAME(LOC) 2WR.2; GLUCOSE,POINT OF CARE 98 MG/DL (70-110)
[2019-01-14] MEDS ORDERED: SODIUM CHLORIDE 0.9% 100 ML ONE (15:15)
[2019-01-14 16:00] VITALS: BP 95/52
[2019-01-14] MEDS: SOD FERRIC GLUC COMPLX/SUCROSE 125 MG in SODIUM CHLORIDE 0.9% 100 ML IV SCH (16:00)
[2019-01-14 17:14] LABS: GLUCOMETER DEV NAME(LOC) 2WR.1; GLUCOSE,POINT OF CARE 107 MG/DL (70-110)
[2019-01-14] MEDS: TEMAZEPAM 7.5 MG CAPSULE PO PRN (21:06)
[2019-01-14] MEDS: ATORVASTATIN CALCIUM 40 MG TABLET PO SCH (21:07)
[2019-01-14] MEDS: CETIRIZINE HCL 10 MG TABLET PO SCH (21:08)
[2019-01-14] MEDS: GABAPENTIN 300 MG CAPSULE PO SCH (21:08)
[2019-01-14] MEDS: SENNA 187 MG TABLET PO SCH (21:10)
[2019-01-14] MEDS: INSULIN LISPRO 100 UNITS/ML SQ PRN (21:20)
[2019-01-14 23:08] LABS: GLUCOMETER DEV NAME(LOC) 2WR.2; GLUCOSE,POINT OF CARE 160 MG/DL (70-110)
[2019-01-15 05:00] VITALS: BP 98/55
[2019-01-15 05:05] VITALS: BP 100/60
[2019-01-15] MEDS: 0.9% SODIUM CHLORIDE 10 ML SYRINGE IVP SCH ×3 (05:45→19:21)
[2019-01-15] MEDS: HYDROCODONE/ACETAMINOPHEN 5-325 MG TABLET PO PRN ×3 (05:52→19:27)
[2019-01-15 06:23] LABS: GLUCOMETER DEV NAME(LOC) 2WR.2; GLUCOSE,POINT OF CARE 87 MG/DL (70-110)
[2019-01-15 06:30] LABS: EOSINOPHILS % (AUTO) 11.8 % (1.0-6.0); HEMATOCRIT 22.6 % (36-46); HEMOGLOBIN 7.5 g/dL (12.0-16.0); MEAN CORPUSCULAR HEMOGLOBIN 32.5 pg (26.0-34.0); MEAN CORPUSCULAR VOLUME 98 fL (80-100); MONOCYTES # (AUTO) 0.2 K/uL (0.1-1.0); MONOCYTES % (AUTO) 6.3 % (2.0-9.0); NEUTROPHILS # (AUTO) 1.5 K/uL (1.8-7.7); NEUTROPHILS % (AUTO) 47.9 % (40.0-70.0); PLATELET COUNT (AUTO) 195 K/uL (150-450); RED CELL DISTRIBUTION WIDTH 15.9 % (11.5-14.5)
[2019-01-15 07:13] LABS: ALBUMIN 2.7 g/dL (3.4-5.0); BILIRUBIN,TOTAL 0.3 mg/dL (0.1-1.0); CREATININE 1.76 mg/dL (0.60-1.30); MAGNESIUM 2.6 mg/dL (1.80-2.40); PHOSPHORUS 5.5 mg/dL (2.5-4.9); POTASSIUM 4.9 mmol/L (3.5-5.1); TOTAL PROTEIN, SERUM 7.2 g/dL (6.4-8.2)
[2019-01-15 07:30] VITALS: BP 101/51
[2019-01-15] MEDS: APIXABAN 5 MG TABLET PO SCH (09:00)
[2019-01-15] MEDS ORDERED: FUROSEMIDE 20 MG TABLET PO SCH (09:00)
[2019-01-15] MEDS: EPOETIN ALFA 10,000 UNITS/ML VIAL SQ SCH (09:22)
[2019-01-15] MEDS: DICLOFENAC SODIUM 1% 100 GM GEL [4GM] TP SCH ×3 (09:22→20:26)
[2019-01-15] MEDS: ALLOPURINOL 100 MG TABLET PO SCH (09:23)
[2019-01-15] MEDS: SIMVASTATIN 20 MG TABLET PO SCH (09:23)
[2019-01-15] MEDS: POLYETHYLENE GLYCOL 3350 17 GM PACKET PO SCH (09:23)
[2019-01-15] MEDS: COLCHICINE 0.6 MG TABLET PO SCH (09:23)
[2019-01-15] MEDS: VITAMIN B COMP/VIT C/FOLIC ACID CAPSULE PO SCH (09:23)
[2019-01-15] MEDS: CALCITRIOL 0.25 MCG CAPSULE PO SCH (09:24)
[2019-01-15] MEDS: CHOLECALCIFEROL (VIT D3) 1,000 UNITS TABLET PO SCH (09:24)
[2019-01-15] MEDS: SOTALOL HCL 80 MG TABLET PO SCH ×2 (09:24→20:27)
[2019-01-15] MEDS: PANTOPRAZOLE SODIUM 40 MG DR TABLET PO SCH (09:24)
[2019-01-15] MEDS: DOCUSATE SODIUM 250 MG CAPSULE PO SCH ×2 (09:24→20:27)
[2019-01-15] MEDS: COLD CREAM, SKIN EMOLLIENT 340 GM JAR TP SCH ×2 (09:25→20:32)
[2019-01-15 12:28] LABS: GLUCOMETER DEV NAME(LOC) 2WR.1; GLUCOSE,POINT OF CARE 93 MG/DL (70-110)
[2019-01-15 16:00] VITALS: BP 113/66
[2019-01-15 16:54] LABS: GLUCOMETER DEV NAME(LOC) 2WR.1; GLUCOSE,POINT OF CARE 100 MG/DL (70-110)
[2019-01-15] MEDS ORDERED: SODIUM CHLORIDE 0.9% 100 ML ONE (19:07)
[2019-01-15] MEDS: SOD FERRIC GLUC COMPLX/SUCROSE 125 MG in SODIUM CHLORIDE 0.9% 100 ML IV SCH (19:21)
[2019-01-15] MEDS: TEMAZEPAM 7.5 MG CAPSULE PO PRN (20:25)
[2019-01-15] MEDS: ATORVASTATIN CALCIUM 40 MG TABLET PO SCH (20:26)
[2019-01-15] MEDS: CETIRIZINE HCL 10 MG TABLET PO SCH (20:26)
[2019-01-15] MEDS: SENNA 187 MG TABLET PO SCH (20:26)
[2019-01-15] MEDS: GABAPENTIN 300 MG CAPSULE PO SCH (20:26)
[2019-01-15 20:27] VITALS: BP 113/55
[2019-01-15] MEDS ORDERED: DEXTROSE 5%-0.45% SODIUM CHL 1,000 ML IV PRN (23:55)
[2019-01-15] MEDS ORDERED: DEXTROSE 5%-0.9% SODIUM CHL 1,000 ML IV ONE (23:57)
[2019-01-16] MEDS: 0.9% SODIUM CHLORIDE 10 ML SYRINGE IVP SCH ×3 (00:05→16:52)
[2019-01-16 04:39] VITALS: BP 115/60
[2019-01-16] MEDS: HYDROCODONE/ACETAMINOPHEN 5-325 MG TABLET PO PRN ×3 (04:39→21:49)
[2019-01-16 06:13] LABS: GLUCOMETER DEV NAME(LOC) 2WR.1; GLUCOSE,POINT OF CARE 103 MG/DL (70-110)
[2019-01-16] MEDS: CALCITRIOL 0.25 MCG CAPSULE PO SCH (07:37)
[2019-01-16] MEDS: DOCUSATE SODIUM 250 MG CAPSULE PO SCH ×2 (07:37→21:35)
[2019-01-16] MEDS: PANTOPRAZOLE SODIUM 40 MG DR TABLET PO SCH (07:37)
[2019-01-16] MEDS: POLYETHYLENE GLYCOL 3350 17 GM PACKET PO SCH (07:38)
[2019-01-16] MEDS: SIMVASTATIN 20 MG TABLET PO SCH (07:39)
[2019-01-16] MEDS: DICLOFENAC SODIUM 1% 100 GM GEL [4GM] TP SCH (07:39)
[2019-01-16] MEDS: ALLOPURINOL 100 MG TABLET PO SCH (07:39)
[2019-01-16] MEDS: CHOLECALCIFEROL (VIT D3) 1,000 UNITS TABLET PO SCH (07:50)
[2019-01-16] MEDS: VITAMIN B COMP/VIT C/FOLIC ACID CAPSULE PO SCH (07:50)
[2019-01-16] MEDS: SOTALOL HCL 80 MG TABLET PO SCH ×2 (07:50→21:31)
[2019-01-16] MEDS ORDERED: SODIUM CHLORIDE 0.9% 1,000 ML IV ONE ×3 (08:30→09:15)
[2019-01-16] MEDS: COLD CREAM, SKIN EMOLLIENT 340 GM JAR TP SCH ×2 (09:00→21:36)
[2019-01-16 10:07] VITALS: BP 96/51
[2019-01-16 12:09] VITALS: BP 95/70
[2019-01-16 12:52] LABS: BASOPHILS % (AUTO) 0.9 % (0.0-2.0); EOSINOPHILS % (AUTO) 10.7 % (1.0-6.0); HEMATOCRIT 25.6 % (36-46); HEMOGLOBIN 8.4 g/dL (12.0-16.0); LYMPHOCYTES # (AUTO) 0.9 K/uL (1.0-4.8); LYMPHOCYTES % (AUTO) 24.8 % (22.0-44.0); MEAN CORPUSCULAR HEMOGLOBIN 32.4 pg (26.0-34.0); MEAN CORPUSCULAR HGB CONC 32.7 G/dL (31.0-37.0); MEAN CORPUSCULAR VOLUME 99 fL (80-100); MONOCYTES # (AUTO) 0.2 K/uL (0.1-1.0); MONOCYTES % (AUTO) 4.3 % (2.0-9.0); NEUTROPHILS # (AUTO) 2.1 K/uL (1.8-7.7); NEUTROPHILS % (AUTO) 59.3 % (40.0-70.0); PLATELET COUNT (AUTO) 198 K/uL (150-450); RED BLOOD CELL COUNT(AUTO) 2.58 MIL/uL (4.00-5.20); RED CELL DISTRIBUTION WIDTH 16.2 % (11.5-14.5)
[2019-01-16 13:13] LABS: CALCIUM, TOTAL 8.9 mg/dL (8.8-10.5); CREATININE 1.82 mg/dL (0.60-1.30); MAGNESIUM 2.1 mg/dL (1.80-2.40); PHOSPHORUS 4.6 mg/dL (2.5-4.9); POTASSIUM 4.7 mmol/L (3.5-5.1)
[2019-01-16 15:00] VITALS: BP 115/83
[2019-01-16] MEDS ORDERED: SODIUM CHLORIDE 0.9% 100 ML ONE (16:26)
[2019-01-16] MEDS: SOD FERRIC GLUC COMPLX/SUCROSE 125 MG in SODIUM CHLORIDE 0.9% 100 ML IV SCH (16:53)
[2019-01-16 18:18] LABS: GLUCOMETER DEV NAME(LOC) 2WR.1; GLUCOSE,POINT OF CARE 133 MG/DL (70-110)
[2019-01-16 21:30] VITALS: BP 112/70
[2019-01-16] MEDS: SENNA 187 MG TABLET PO SCH (21:32)
[2019-01-16] MEDS: GABAPENTIN 300 MG CAPSULE PO SCH (21:32)
[2019-01-16] MEDS: ATORVASTATIN CALCIUM 40 MG TABLET PO SCH (21:32)
[2019-01-16] MEDS: CETIRIZINE HCL 10 MG TABLET PO SCH (21:32)
[2019-01-16] MEDS: APIXABAN 5 MG TABLET PO SCH (21:32)
[2019-01-16] MEDS: TEMAZEPAM 7.5 MG CAPSULE PO PRN (21:33)
[2019-01-17] MEDS: 0.9% SODIUM CHLORIDE 10 ML SYRINGE IVP SCH ×4 (02:25→23:02)
[2019-01-17 03:03] VITALS: BP 102/62
[2019-01-17] MEDS: HYDROCODONE/ACETAMINOPHEN 5-325 MG TABLET PO PRN ×5 (03:03→23:02)
[2019-01-17] MEDS ORDERED: LIDOCAINE/PF 2% 5 ML VIAL IM ONE (05:58)
[2019-01-17] MEDS ORDERED: PROPOFOL 1% 20 ML VIAL IVP ONE (05:58)
[2019-01-17 07:08] LABS: GLUCOMETER DEV NAME(LOC) 2WR.2; GLUCOSE,POINT OF CARE 93 MG/DL (70-110)
[2019-01-17 07:18] LABS: BASOPHILS % (AUTO) 0.8 % (0.0-2.0); EOSINOPHILS % (AUTO) 8.7 % (1.0-6.0); HEMATOCRIT 24.2 % (36-46); HEMOGLOBIN 8.1 g/dL (12.0-16.0); LYMPHOCYTES # (AUTO) 1.3 K/uL (1.0-4.8); LYMPHOCYTES % (AUTO) 34.2 % (22.0-44.0); MEAN CORPUSCULAR HEMOGLOBIN 33.4 pg (26.0-34.0); MEAN CORPUSCULAR HGB CONC 33.4 G/dL (31.0-37.0); MEAN CORPUSCULAR VOLUME 100 fL (80-100); MONOCYTES # (AUTO) 0.2 K/uL (0.1-1.0); MONOCYTES % (AUTO) 5.9 % (2.0-9.0); NEUTROPHILS # (AUTO) 1.9 K/uL (1.8-7.7); NEUTROPHILS % (AUTO) 50.4 % (40.0-70.0); PLATELET COUNT (AUTO) 198 K/uL (150-450); RED BLOOD CELL COUNT(AUTO) 2.42 MIL/uL (4.00-5.20)
[2019-01-17 07:24] LABS: CALCIUM, TOTAL 8.9 mg/dL (8.8-10.5); CREATININE 1.82 mg/dL (0.60-1.30); POTASSIUM 4.8 mmol/L (3.5-5.1)
[2019-01-17 07:30] VITALS: BP 98/64
[2019-01-17] MEDS: POLYETHYLENE GLYCOL 3350 17 GM PACKET PO SCH (08:29)
[2019-01-17] MEDS: VITAMIN B COMP/VIT C/FOLIC ACID CAPSULE PO SCH (08:29)
[2019-01-17] MEDS: APIXABAN 5 MG TABLET PO SCH ×2 (08:29→20:22)
[2019-01-17] MEDS: CHOLECALCIFEROL (VIT D3) 1,000 UNITS TABLET PO SCH (08:29)
[2019-01-17] MEDS: ALLOPURINOL 100 MG TABLET PO SCH (08:30)
[2019-01-17] MEDS: SIMVASTATIN 20 MG TABLET PO SCH (08:30)
[2019-01-17] MEDS: CALCITRIOL 0.25 MCG CAPSULE PO SCH (08:30)
[2019-01-17] MEDS: FUROSEMIDE 20 MG TABLET PO SCH (08:31)
[2019-01-17] MEDS: DOCUSATE SODIUM 250 MG CAPSULE PO SCH ×2 (08:31→20:23)
[2019-01-17] MEDS: PANTOPRAZOLE SODIUM 40 MG DR TABLET PO SCH (08:31)
[2019-01-17] MEDS: SOTALOL HCL 80 MG TABLET PO SCH ×2 (08:35→20:23)
[2019-01-17 08:42] VITALS: BP 92/51
[2019-01-17] MEDS: EPOETIN ALFA 10,000 UNITS/ML VIAL SQ SCH (08:43)
[2019-01-17] MEDS: ALBUTEROL SULFATE 2.5 MG/0.5 ML NEB SOLUTION NEB PRN (09:32)
[2019-01-17] MEDS: IPRATROPIUM BROMIDE 0.5 MG/2.5 ML NEB SOLUTION NEB PRN (09:32)
[2019-01-17] MEDS: COLD CREAM, SKIN EMOLLIENT 340 GM JAR TP SCH ×2 (09:50→21:03)
[2019-01-17 16:01] VITALS: BP 112/71
[2019-01-17] MEDS: SOD FERRIC GLUC COMPLX/SUCROSE 125 MG in SODIUM CHLORIDE 0.9% 100 ML IV SCH (16:45)
[2019-01-17 18:19] LABS: GLUCOMETER DEV NAME(LOC) 2WR.1; GLUCOSE,POINT OF CARE 102 MG/DL (70-110)
[2019-01-17 20:15] VITALS: BP 105/84
[2019-01-17] MEDS: CETIRIZINE HCL 10 MG TABLET PO SCH (20:22)
[2019-01-17] MEDS: GABAPENTIN 300 MG CAPSULE PO SCH (20:23)
[2019-01-17] MEDS: ATORVASTATIN CALCIUM 40 MG TABLET PO SCH (20:23)
[2019-01-17] MEDS: SENNA 187 MG TABLET PO SCH (20:24)
[2019-01-17] MEDS: TEMAZEPAM 7.5 MG CAPSULE PO PRN (21:03)
[2019-01-17 23:02] VITALS: BP 117/69
[2019-01-18] MEDS: HYDROCODONE/ACETAMINOPHEN 5-325 MG TABLET PO PRN ×4 (05:50→20:39)
[2019-01-18 06:08] LABS: GLUCOMETER DEV NAME(LOC) 2WR.2; GLUCOSE,POINT OF CARE 110 MG/DL (70-110)
[2019-01-18] MEDS: SIMVASTATIN 20 MG TABLET PO SCH (09:03)
[2019-01-18] MEDS: CHOLECALCIFEROL (VIT D3) 1,000 UNITS TABLET PO SCH (09:03)
[2019-01-18] MEDS: POLYETHYLENE GLYCOL 3350 17 GM PACKET PO SCH (09:03)
[2019-01-18] MEDS: CALCITRIOL 0.25 MCG CAPSULE PO SCH (09:03)
[2019-01-18] MEDS: VITAMIN B COMP/VIT C/FOLIC ACID CAPSULE PO SCH (09:04)
[2019-01-18] MEDS: ALLOPURINOL 100 MG TABLET PO SCH (09:04)
[2019-01-18] MEDS: SOTALOL HCL 80 MG TABLET PO SCH ×2 (09:04→20:43)
[2019-01-18] MEDS: FUROSEMIDE 20 MG TABLET PO SCH (09:04)
[2019-01-18] MEDS: PANTOPRAZOLE SODIUM 40 MG DR TABLET PO SCH (09:04)
[2019-01-18] MEDS: APIXABAN 5 MG TABLET PO SCH ×2 (09:04→20:44)
[2019-01-18] MEDS: DOCUSATE SODIUM 250 MG CAPSULE PO SCH ×2 (09:04→20:44)
[2019-01-18 09:10] VITALS: BP 104/65
[2019-01-18] MEDS: COLD CREAM, SKIN EMOLLIENT 340 GM JAR TP SCH ×2 (09:12→20:45)
[2019-01-18] MEDS: 0.9% SODIUM CHLORIDE 10 ML SYRINGE IVP SCH ×2 (09:16→16:10)
[2019-01-18 15:05] VITALS: BP 110/66
[2019-01-18] MEDS: SOD FERRIC GLUC COMPLX/SUCROSE 125 MG in SODIUM CHLORIDE 0.9% 100 ML IV SCH (16:10)
[2019-01-18] MEDS: ALBUTEROL SULFATE 2.5 MG/0.5 ML NEB SOLUTION NEB PRN (17:30)
[2019-01-18] MEDS: IPRATROPIUM BROMIDE 0.5 MG/2.5 ML NEB SOLUTION NEB PRN (17:30)
[2019-01-18 17:34] LABS: GLUCOMETER DEV NAME(LOC) 2WR.2; GLUCOSE,POINT OF CARE 96 MG/DL (70-110)
[2019-01-18 20:39] VITALS: BP 110/57
[2019-01-18] MEDS: TEMAZEPAM 7.5 MG CAPSULE PO PRN (20:39)
[2019-01-18] MEDS: GABAPENTIN 300 MG CAPSULE PO SCH (20:39)
[2019-01-18] MEDS: ATORVASTATIN CALCIUM 40 MG TABLET PO SCH (20:44)
[2019-01-18] MEDS: SENNA 187 MG TABLET PO SCH (20:44)
[2019-01-18] MEDS: CETIRIZINE HCL 10 MG TABLET PO SCH (20:44)
[2019-01-19 04:14] VITALS: BP 108/78
[2019-01-19] MEDS: 0.9% SODIUM CHLORIDE 10 ML SYRINGE IVP SCH ×3 (04:14→16:07)
[2019-01-19] MEDS: HYDROCODONE/ACETAMINOPHEN 5-325 MG TABLET PO PRN ×4 (04:14→20:57)
[2019-01-19 06:20] LABS: BASOPHILS % (AUTO) 1.5 % (0.0-2.0); EOSINOPHILS % (AUTO) 10.9 % (1.0-6.0); HEMATOCRIT 25.9 % (36-46); HEMOGLOBIN 8.6 g/dL (12.0-16.0); LYMPHOCYTES # (AUTO) 1.2 K/uL (1.0-4.8); LYMPHOCYTES % (AUTO) 32.8 % (22.0-44.0); MEAN CORPUSCULAR HEMOGLOBIN 33.2 pg (26.0-34.0); MEAN CORPUSCULAR HGB CONC 33.4 G/dL (31.0-37.0); MEAN CORPUSCULAR VOLUME 99 fL (80-100); MONOCYTES # (AUTO) 0.2 K/uL (0.1-1.0); MONOCYTES % (AUTO) 6.2 % (2.0-9.0); NEUTROPHILS # (AUTO) 1.7 K/uL (1.8-7.7); NEUTROPHILS % (AUTO) 48.6 % (40.0-70.0); PLATELET COUNT (AUTO) 186 K/uL (150-450); RED CELL DISTRIBUTION WIDTH 16.3 % (11.5-14.5)
[2019-01-19 06:34] LABS: GLUCOMETER DEV NAME(LOC) 2WR.1; GLUCOSE,POINT OF CARE 89 MG/DL (70-110)
[2019-01-19 06:40] LABS: CREATININE 1.81 mg/dL (0.60-1.30); MAGNESIUM 1.9 mg/dL (1.80-2.40); PHOSPHORUS 5.3 mg/dL (2.5-4.9); POTASSIUM 4.7 mmol/L (3.5-5.1)
[2019-01-19 08:27] VITALS: BP 113/68
[2019-01-19] MEDS: CALCITRIOL 0.25 MCG CAPSULE PO SCH (08:27)
[2019-01-19] MEDS: CHOLECALCIFEROL (VIT D3) 1,000 UNITS TABLET PO SCH (08:27)
[2019-01-19] MEDS: DOCUSATE SODIUM 250 MG CAPSULE PO SCH ×2 (08:27→20:56)
[2019-01-19] MEDS: SIMVASTATIN 20 MG TABLET PO SCH (08:27)
[2019-01-19] MEDS: VITAMIN B COMP/VIT C/FOLIC ACID CAPSULE PO SCH (08:27)
[2019-01-19] MEDS: SOTALOL HCL 80 MG TABLET PO SCH ×2 (08:27→20:56)
[2019-01-19] MEDS: FUROSEMIDE 20 MG TABLET PO SCH (08:28)
[2019-01-19] MEDS: PANTOPRAZOLE SODIUM 40 MG DR TABLET PO SCH (08:28)
[2019-01-19] MEDS: ALLOPURINOL 100 MG TABLET PO SCH (08:28)
[2019-01-19] MEDS: APIXABAN 5 MG TABLET PO SCH ×2 (08:28→20:56)
[2019-01-19] MEDS: POLYETHYLENE GLYCOL 3350 17 GM PACKET PO SCH (08:28)
[2019-01-19] MEDS: COLD CREAM, SKIN EMOLLIENT 340 GM JAR TP SCH ×2 (08:33→21:00)
[2019-01-19] MEDS: SEVELAMER CARBONATE 800 MG TABLET PO SCH ×2 (12:52→17:17)
[2019-01-19 15:15] VITALS: BP 114/66
[2019-01-19] MEDS ORDERED: SODIUM CHLORIDE 0.9% 100 ML ONE (16:04)
[2019-01-19] MEDS: SOD FERRIC GLUC COMPLX/SUCROSE 125 MG in SODIUM CHLORIDE 0.9% 100 ML IV SCH (16:08)
[2019-01-19] MEDS: TEMAZEPAM 7.5 MG CAPSULE PO PRN (20:56)
[2019-01-19] MEDS: CETIRIZINE HCL 10 MG TABLET PO SCH (20:56)
[2019-01-19] MEDS: SENNA 187 MG TABLET PO SCH (20:56)
[2019-01-19] MEDS: ATORVASTATIN CALCIUM 40 MG TABLET PO SCH (20:56)
[2019-01-19] MEDS: GABAPENTIN 300 MG CAPSULE PO SCH (20:56)
[2019-01-19 20:57] VITALS: BP 110/59
[2019-01-20] MEDS: 0.9% SODIUM CHLORIDE 10 ML SYRINGE IVP SCH ×4 (02:14→23:33)
[2019-01-20 05:45] VITALS: BP 106/60
[2019-01-20 06:09] LABS: GLUCOMETER DEV NAME(LOC) 2WR.1; GLUCOSE,POINT OF CARE 94 MG/DL (70-110)
[2019-01-20 07:46] VITALS: BP 105/72
[2019-01-20] MEDS: SEVELAMER CARBONATE 800 MG TABLET PO SCH ×3 (08:12→18:05)
[2019-01-20] MEDS: APIXABAN 5 MG TABLET PO SCH ×2 (08:12→20:55)
[2019-01-20] MEDS: SOTALOL HCL 80 MG TABLET PO SCH ×2 (08:13→21:00)
[2019-01-20] MEDS: FUROSEMIDE 20 MG TABLET PO SCH (08:13)
[2019-01-20] MEDS: SIMVASTATIN 20 MG TABLET PO SCH (08:13)
[2019-01-20] MEDS: CALCITRIOL 0.25 MCG CAPSULE PO SCH (08:13)
[2019-01-20] MEDS: PANTOPRAZOLE SODIUM 40 MG DR TABLET PO SCH (08:13)
[2019-01-20] MEDS: VITAMIN B COMP/VIT C/FOLIC ACID CAPSULE PO SCH (08:13)
[2019-01-20] MEDS: POLYETHYLENE GLYCOL 3350 17 GM PACKET PO SCH (08:13)
[2019-01-20] MEDS: CHOLECALCIFEROL (VIT D3) 1,000 UNITS TABLET PO SCH (08:13)
[2019-01-20] MEDS: DOCUSATE SODIUM 250 MG CAPSULE PO SCH ×2 (08:13→20:54)
[2019-01-20] MEDS: ALLOPURINOL 100 MG TABLET PO SCH (08:14)
[2019-01-20] MEDS: COLD CREAM, SKIN EMOLLIENT 340 GM JAR TP SCH ×2 (08:16→20:56)
[2019-01-20] MEDS: EPOETIN ALFA 10,000 UNITS/ML VIAL SQ SCH (08:16)
[2019-01-20] MEDS: HYDROCODONE/ACETAMINOPHEN 5-325 MG TABLET PO PRN ×3 (08:57→20:55)
[2019-01-20 15:00] VITALS: BP 101/54
[2019-01-20] MEDS ORDERED: SODIUM CHLORIDE 0.9% 100 ML ONE (15:45)
[2019-01-20] MEDS: SOD FERRIC GLUC COMPLX/SUCROSE 125 MG in SODIUM CHLORIDE 0.9% 100 ML IV SCH (16:01)
[2019-01-20] MEDS: SENNA 187 MG TABLET PO SCH (20:54)
[2019-01-20] MEDS: GABAPENTIN 300 MG CAPSULE PO SCH (20:55)
[2019-01-20] MEDS: CETIRIZINE HCL 10 MG TABLET PO SCH (20:56)
[2019-01-20] MEDS: TEMAZEPAM 7.5 MG CAPSULE PO PRN (23:30)
[2019-01-20 23:36] VITALS: BP 110/60
[2019-01-21 07:03] LABS: GLUCOMETER DEV NAME(LOC) 2WR.2; GLUCOSE,POINT OF CARE 90 MG/DL (70-110)
[2019-01-21 07:06] LABS: EOSINOPHILS % (AUTO) 9.2 % (1.0-6.0); HEMATOCRIT 25.5 % (36-46); HEMOGLOBIN 8.4 g/dL (12.0-16.0); LYMPHOCYTES # (AUTO) 1.1 K/uL (1.0-4.8); MEAN CORPUSCULAR HEMOGLOBIN 33.2 pg (26.0-34.0); MEAN CORPUSCULAR VOLUME 101 fL (80-100); MONOCYTES # (AUTO) 0.2 K/uL (0.1-1.0); MONOCYTES % (AUTO) 7.3 % (2.0-9.0); NEUTROPHILS # (AUTO) 1.4 K/uL (1.8-7.7); NEUTROPHILS % (AUTO) 45.5 % (40.0-70.0); PLATELET COUNT (AUTO) 166 K/uL (150-450); RED BLOOD CELL COUNT(AUTO) 2.53 MIL/uL (4.00-5.20); RED CELL DISTRIBUTION WIDTH 16.8 % (11.5-14.5)
[2019-01-21 07:11] VITALS: BP 108/59
[2019-01-21 07:22] LABS: ALBUMIN 2.6 g/dL (3.4-5.0); BILIRUBIN,TOTAL 0.3 mg/dL (0.1-1.0); CREATININE 1.78 mg/dL (0.60-1.30); PHOSPHORUS 5.1 mg/dL (2.5-4.9); POTASSIUM 4.4 mmol/L (3.5-5.1); TOTAL PROTEIN, SERUM 7.1 g/dL (6.4-8.2)
[2019-01-21] MEDS: SEVELAMER CARBONATE 800 MG TABLET PO SCH ×3 (08:07→18:09)
[2019-01-21] MEDS: POLYETHYLENE GLYCOL 3350 17 GM PACKET PO SCH (08:07)
[2019-01-21] MEDS: ALLOPURINOL 100 MG TABLET PO SCH (08:07)
[2019-01-21] MEDS: SOTALOL HCL 80 MG TABLET PO SCH ×2 (08:07→21:23)
[2019-01-21] MEDS: CALCITRIOL 0.25 MCG CAPSULE PO SCH (08:07)
[2019-01-21] MEDS: VITAMIN B COMP/VIT C/FOLIC ACID CAPSULE PO SCH (08:07)
[2019-01-21] MEDS: CHOLECALCIFEROL (VIT D3) 1,000 UNITS TABLET PO SCH (08:07)
[2019-01-21] MEDS: PANTOPRAZOLE SODIUM 40 MG DR TABLET PO SCH (08:08)
[2019-01-21] MEDS: SIMVASTATIN 20 MG TABLET PO SCH (08:08)
[2019-01-21] MEDS: APIXABAN 5 MG TABLET PO SCH ×2 (08:08→21:23)
[2019-01-21] MEDS: FUROSEMIDE 20 MG TABLET PO SCH (08:08)
[2019-01-21] MEDS: DOCUSATE SODIUM 250 MG CAPSULE PO SCH ×2 (08:08→21:23)
[2019-01-21] MEDS: 0.9% SODIUM CHLORIDE 10 ML SYRINGE IVP SCH ×3 (08:10→23:14)
[2019-01-21] MEDS: FERROUS SULFATE 325 MG EC TABLET PO SCH (08:55)
[2019-01-21] MEDS: HYDROCODONE/ACETAMINOPHEN 5-325 MG TABLET PO PRN ×3 (08:55→21:23)
[2019-01-21 09:00] VITALS: BP 106/66
[2019-01-21] MEDS: COLD CREAM, SKIN EMOLLIENT 340 GM JAR TP SCH ×2 (12:15→21:24)
[2019-01-21 12:22] LABS: H. PYLORI ANTIBODY IGM <9.0 units (0.0-8.9)
[2019-01-21 16:01] VITALS: BP 111/61
[2019-01-21 21:23] VITALS: BP 121/52
[2019-01-21] MEDS: SENNA 187 MG TABLET PO SCH (21:23)
[2019-01-21] MEDS: GABAPENTIN 300 MG CAPSULE PO SCH (21:23)
[2019-01-21] MEDS: CETIRIZINE HCL 10 MG TABLET PO SCH (21:23)
[2019-01-21] MEDS: TEMAZEPAM 7.5 MG CAPSULE PO PRN (23:13)
[2019-01-21 23:47] VITALS: BP 115/52
[2019-01-22] VITALS (8 sets, daily range): BP systolic 90–129; BP diastolic 54–76
[2019-01-22] MEDS ORDERED: DIGOXIN 250 MCG/ML 2 ML AMP IVP ONE (02:15)
[2019-01-22 06:33] LABS: GLUCOMETER DEV NAME(LOC) 2WR.2; GLUCOSE,POINT OF CARE 93 MG/DL (70-110)
[2019-01-22] MEDS: HYDROCODONE/ACETAMINOPHEN 5-325 MG TABLET PO PRN ×3 (06:39→20:31)
[2019-01-22] MEDS ORDERED: ASPIRIN 81 MG EC TABLET PO ONE (08:00)
[2019-01-22] MEDS ORDERED: NITROGLYCERIN 2% (1 GM=INCH) PACKET TP SCH (08:00)
[2019-01-22] MEDS: NITROGLYCERIN 2% (1 GM=INCH) PACKET TP SCH ×2 (08:00→16:00)
[2019-01-22] MEDS: SEVELAMER CARBONATE 800 MG TABLET PO SCH ×3 (08:17→17:59)
[2019-01-22] MEDS: FERROUS SULFATE 325 MG EC TABLET PO SCH (08:18)
[2019-01-22] MEDS: CALCITRIOL 0.25 MCG CAPSULE PO SCH (08:20)
[2019-01-22] MEDS: CHOLECALCIFEROL (VIT D3) 1,000 UNITS TABLET PO SCH (08:20)
[2019-01-22] MEDS: ALLOPURINOL 100 MG TABLET PO SCH (08:20)
[2019-01-22] MEDS: APIXABAN 5 MG TABLET PO SCH ×2 (08:20→20:27)
[2019-01-22] MEDS: PANTOPRAZOLE SODIUM 40 MG DR TABLET PO SCH (08:21)
[2019-01-22] MEDS: SIMVASTATIN 20 MG TABLET PO SCH (08:21)
[2019-01-22] MEDS: METOPROLOL TARTRATE 25 MG TABLET PO SCH ×2 (08:22→20:28)
[2019-01-22] MEDS: POLYETHYLENE GLYCOL 3350 17 GM PACKET PO SCH (08:22)
[2019-01-22] MEDS: SOTALOL HCL 80 MG TABLET PO SCH ×2 (08:23→20:29)
[2019-01-22] MEDS: COLD CREAM, SKIN EMOLLIENT 340 GM JAR TP SCH ×2 (08:26→20:37)
[2019-01-22] MEDS: EPOETIN ALFA 10,000 UNITS/ML VIAL SQ SCH (08:31)
[2019-01-22] MEDS: 0.9% SODIUM CHLORIDE 10 ML SYRINGE IVP SCH ×2 (08:31→16:51)
[2019-01-22] MEDS: FUROSEMIDE 20 MG TABLET PO SCH (08:36)
[2019-01-22] MEDS: ACETAMINOPHEN 325 MG TABLET PO PRN (08:40)
[2019-01-22] MEDS: DOCUSATE SODIUM 250 MG CAPSULE PO SCH ×2 (08:40→20:27)
[2019-01-22] MEDS: VITAMIN B COMP/VIT C/FOLIC ACID CAPSULE PO SCH (09:59)
[2019-01-22 12:09] LABS: H. PYLORI ANTIBODY IGA <9.0 units (0.0-8.9)
[2019-01-22] MEDS ORDERED: PENTETATE DTPA TC99M/MCL ISOTOPE 1 EA INJ INJ ONE (16:00)
[2019-01-22] MEDS ORDERED: MAA ALBUMIN AGGREGATED TC99M/UD<10MCL ISOTOPE 1 EA INJ INJ ONE (16:15)
[2019-01-22] MEDS: SENNA 187 MG TABLET PO SCH (20:27)
[2019-01-22] MEDS: CETIRIZINE HCL 10 MG TABLET PO SCH (20:28)
[2019-01-22] MEDS: GABAPENTIN 300 MG CAPSULE PO SCH (20:28)
[2019-01-22] MEDS: TEMAZEPAM 7.5 MG CAPSULE PO PRN (20:29)
[2019-01-23] VITALS: BP 98/60
[2019-01-23 06:43] LABS: GLUCOMETER DEV NAME(LOC) 2WR.1; GLUCOSE,POINT OF CARE 85 MG/DL (70-110)
[2019-01-23 07:01] LABS: EOSINOPHILS % (AUTO) 7.2 % (1.0-6.0); HEMATOCRIT 27.8 % (36-46); HEMOGLOBIN 9.3 g/dL (12.0-16.0); LYMPHOCYTES # (AUTO) 1.1 K/uL (1.0-4.8); LYMPHOCYTES % (AUTO) 37.6 % (22.0-44.0); MEAN CORPUSCULAR HEMOGLOBIN 33.3 pg (26.0-34.0); MEAN CORPUSCULAR HGB CONC 33.4 G/dL (31.0-37.0); MEAN CORPUSCULAR VOLUME 100 fL (80-100); MONOCYTES # (AUTO) 0.2 K/uL (0.1-1.0); MONOCYTES % (AUTO) 8.1 % (2.0-9.0); NEUTROPHILS # (AUTO) 1.3 K/uL (1.8-7.7); NEUTROPHILS % (AUTO) 46.1 % (40.0-70.0); PLATELET COUNT (AUTO) 156 K/uL (150-450); RED BLOOD CELL COUNT(AUTO) 2.79 MIL/uL (4.00-5.20); RED CELL DISTRIBUTION WIDTH 17.9 % (11.5-14.5)
[2019-01-23 07:10] LABS: ALBUMIN 2.6 g/dL (3.4-5.0); BILIRUBIN,TOTAL 0.4 mg/dL (0.1-1.0); CALCIUM, TOTAL 9.3 mg/dL (8.8-10.5); CREATININE 1.57 mg/dL (0.60-1.30); MAGNESIUM 1.9 mg/dL (1.80-2.40); POTASSIUM 4.4 mmol/L (3.5-5.1)
[2019-01-23 08:00] VITALS: BP 98/62
[2019-01-23] MEDS: 0.9% SODIUM CHLORIDE 10 ML SYRINGE IVP SCH ×4 (08:00→23:35)
[2019-01-23] MEDS: NITROGLYCERIN 2% (1 GM=INCH) PACKET TP SCH ×3 (08:00→16:28)
[2019-01-23] MEDS: SIMVASTATIN 20 MG TABLET PO SCH (08:58)
[2019-01-23] MEDS: FERROUS SULFATE 325 MG EC TABLET PO SCH (08:58)
[2019-01-23] MEDS: APIXABAN 5 MG TABLET PO SCH ×2 (08:58→21:11)
[2019-01-23] MEDS: CHOLECALCIFEROL (VIT D3) 1,000 UNITS TABLET PO SCH (08:59)
[2019-01-23] MEDS: PANTOPRAZOLE SODIUM 40 MG DR TABLET PO SCH (08:59)
[2019-01-23] MEDS: CALCITRIOL 0.25 MCG CAPSULE PO SCH (08:59)
[2019-01-23] MEDS: DOCUSATE SODIUM 250 MG CAPSULE PO SCH ×2 (08:59→21:10)
[2019-01-23] MEDS: SOTALOL HCL 80 MG TABLET PO SCH ×2 (09:00→21:12)
[2019-01-23] MEDS: FUROSEMIDE 20 MG TABLET PO SCH (09:00)
[2019-01-23] MEDS: METOPROLOL TARTRATE 25 MG TABLET PO SCH ×2 (09:00→21:12)
[2019-01-23] MEDS: SEVELAMER CARBONATE 800 MG TABLET PO SCH ×3 (09:00→17:32)
[2019-01-23] MEDS: VITAMIN B COMP/VIT C/FOLIC ACID CAPSULE PO SCH (09:01)
[2019-01-23] MEDS: POLYETHYLENE GLYCOL 3350 17 GM PACKET PO SCH (09:01)
[2019-01-23] MEDS: COLD CREAM, SKIN EMOLLIENT 340 GM JAR TP SCH ×2 (09:03→21:12)
[2019-01-23] MEDS: ALLOPURINOL 100 MG TABLET PO SCH (09:11)
[2019-01-23] MEDS: HYDROCODONE/ACETAMINOPHEN 5-325 MG TABLET PO PRN ×3 (09:31→21:09)
[2019-01-23] MEDS: SERTRALINE HCL 50 MG TABLET PO SCH (11:36)
[2019-01-23 15:06] VITALS: BP 119/71
[2019-01-23] MEDS: GABAPENTIN 300 MG CAPSULE PO SCH (21:09)
[2019-01-23] MEDS: SENNA 187 MG TABLET PO SCH (21:10)
[2019-01-23] MEDS: CETIRIZINE HCL 10 MG TABLET PO SCH (21:10)
[2019-01-23] MEDS: TEMAZEPAM 7.5 MG CAPSULE PO PRN (21:11)
[2019-01-24] VITALS: BP 92/57
[2019-01-24 06:39] LABS: GLUCOMETER DEV NAME(LOC) 2WR.2; GLUCOSE,POINT OF CARE 94 MG/DL (70-110)
[2019-01-24] MEDS: HYDROCODONE/ACETAMINOPHEN 5-325 MG TABLET PO PRN ×4 (06:45→21:08)
[2019-01-24] MEDS: 0.9% SODIUM CHLORIDE 10 ML SYRINGE IVP SCH ×3 (08:00→23:17)
[2019-01-24 09:30] VITALS: BP 121/85
[2019-01-24] MEDS: POLYETHYLENE GLYCOL 3350 17 GM PACKET PO SCH (10:05)
[2019-01-24] MEDS: CHOLECALCIFEROL (VIT D3) 1,000 UNITS TABLET PO SCH (10:07)
[2019-01-24] MEDS: METOPROLOL TARTRATE 25 MG TABLET PO SCH ×2 (10:07→21:03)
[2019-01-24] MEDS: PANTOPRAZOLE SODIUM 40 MG DR TABLET PO SCH (10:07)
[2019-01-24] MEDS: ALLOPURINOL 100 MG TABLET PO SCH (10:07)
[2019-01-24] MEDS: CALCITRIOL 0.25 MCG CAPSULE PO SCH (10:07)
[2019-01-24] MEDS: APIXABAN 5 MG TABLET PO SCH ×2 (10:07→21:03)
[2019-01-24] MEDS: SEVELAMER CARBONATE 800 MG TABLET PO SCH ×3 (10:07→17:50)
[2019-01-24] MEDS: SOTALOL HCL 80 MG TABLET PO SCH ×2 (10:07→21:03)
[2019-01-24] MEDS: SIMVASTATIN 20 MG TABLET PO SCH (10:08)
[2019-01-24] MEDS: VITAMIN B COMP/VIT C/FOLIC ACID CAPSULE PO SCH (10:08)
[2019-01-24] MEDS: DOCUSATE SODIUM 250 MG CAPSULE PO SCH ×2 (10:09→21:03)
[2019-01-24] MEDS: FERROUS SULFATE 325 MG EC TABLET PO SCH (10:09)
[2019-01-24] MEDS: SERTRALINE HCL 50 MG TABLET PO SCH (10:09)
[2019-01-24] MEDS: NITROGLYCERIN 2% (1 GM=INCH) PACKET TP SCH ×4 (10:09→23:42)
[2019-01-24] MEDS: FUROSEMIDE 20 MG TABLET PO SCH (10:15)
[2019-01-24] MEDS: EPOETIN ALFA 10,000 UNITS/ML VIAL SQ SCH (10:15)
[2019-01-24] MEDS: COLD CREAM, SKIN EMOLLIENT 340 GM JAR TP SCH ×2 (10:16→21:04)
[2019-01-24 15:50] VITALS: BP 127/77
[2019-01-24] MEDS: TEMAZEPAM 7.5 MG CAPSULE PO PRN (21:03)
[2019-01-24] MEDS: GABAPENTIN 300 MG CAPSULE PO SCH (21:03)
[2019-01-24] MEDS: SENNA 187 MG TABLET PO SCH (21:03)
[2019-01-24] MEDS: CETIRIZINE HCL 10 MG TABLET PO SCH (21:03)
[2019-01-24 21:08] VITALS: BP 113/59
[2019-01-24 23:42] VITALS: BP 110/66
[2019-01-25] MEDS: HYDROCODONE/ACETAMINOPHEN 5-325 MG TABLET PO PRN ×3 (06:16→20:51)
[2019-01-25 06:39] LABS: GLUCOMETER DEV NAME(LOC) 2WR.2; GLUCOSE,POINT OF CARE 83 MG/DL (70-110)
[2019-01-25 07:16] VITALS: BP 110/59
[2019-01-25] MEDS: 0.9% SODIUM CHLORIDE 10 ML SYRINGE IVP SCH (08:00)
[2019-01-25 08:05] VITALS: BP 106/60
[2019-01-25] MEDS: PANTOPRAZOLE SODIUM 40 MG DR TABLET PO SCH (08:07)
[2019-01-25] MEDS: FUROSEMIDE 20 MG TABLET PO SCH (08:08)
[2019-01-25] MEDS: ALLOPURINOL 100 MG TABLET PO SCH (08:08)
[2019-01-25] MEDS: FERROUS SULFATE 325 MG EC TABLET PO SCH (08:08)
[2019-01-25] MEDS: CALCITRIOL 0.25 MCG CAPSULE PO SCH (08:08)
[2019-01-25] MEDS: APIXABAN 5 MG TABLET PO SCH ×2 (08:08→20:51)
[2019-01-25] MEDS: SIMVASTATIN 20 MG TABLET PO SCH (08:08)
[2019-01-25] MEDS: CHOLECALCIFEROL (VIT D3) 1,000 UNITS TABLET PO SCH (08:08)
[2019-01-25] MEDS: DOCUSATE SODIUM 250 MG CAPSULE PO SCH ×2 (08:09→20:51)
[2019-01-25] MEDS: SEVELAMER CARBONATE 800 MG TABLET PO SCH ×3 (08:09→17:39)
[2019-01-25] MEDS: SOTALOL HCL 80 MG TABLET PO SCH ×2 (08:09→20:52)
[2019-01-25] MEDS: NITROGLYCERIN 2% (1 GM=INCH) PACKET TP SCH ×3 (08:09→20:51)
[2019-01-25] MEDS: SERTRALINE HCL 50 MG TABLET PO SCH (08:09)
[2019-01-25] MEDS: POLYETHYLENE GLYCOL 3350 17 GM PACKET PO SCH (08:10)
[2019-01-25] MEDS: VITAMIN B COMP/VIT C/FOLIC ACID CAPSULE PO SCH (08:11)
[2019-01-25] MEDS: METOPROLOL TARTRATE 25 MG TABLET PO SCH ×2 (08:12→20:51)
[2019-01-25] MEDS: COLD CREAM, SKIN EMOLLIENT 340 GM JAR TP SCH ×2 (09:00→20:56)
[2019-01-25 15:23] VITALS: BP 107/72
[2019-01-25 20:51] VITALS: BP 111/63
[2019-01-25] MEDS: SENNA 187 MG TABLET PO SCH (20:51)
[2019-01-25] MEDS: GABAPENTIN 300 MG CAPSULE PO SCH (20:51)
[2019-01-25] MEDS: TEMAZEPAM 7.5 MG CAPSULE PO PRN (20:51)
[2019-01-25] MEDS: CETIRIZINE HCL 10 MG TABLET PO SCH (20:51)
[2019-01-25 23:15] VITALS: BP 101/68
[2019-01-26] VITALS (7 sets, daily range): BP systolic 93–128; BP diastolic 51–67
[2019-01-26] MEDS: HYDROCODONE/ACETAMINOPHEN 5-325 MG TABLET PO PRN ×4 (01:54→23:15)
[2019-01-26 06:34] LABS: GLUCOMETER DEV NAME(LOC) 2WR.2; GLUCOSE,POINT OF CARE 89 MG/DL (70-110)
[2019-01-26 06:40] LABS: CALCIUM, TOTAL 9.2 mg/dL (8.8-10.5); CREATININE 1.53 mg/dL (0.60-1.30); MAGNESIUM 1.8 mg/dL (1.80-2.40); PHOSPHORUS 4.6 mg/dL (2.5-4.9); POTASSIUM 4.6 mmol/L (3.5-5.1)
[2019-01-26 07:13] LABS: BASOPHILS % (AUTO) 0.8 % (0.0-2.0); EOSINOPHILS % (AUTO) 9.1 % (1.0-6.0); HEMOGLOBIN 14.3 g/dL (12.0-16.0); LYMPHOCYTES # (AUTO) 0.8 K/uL (1.0-4.8); LYMPHOCYTES % (AUTO) 41.6 % (22.0-44.0); MEAN CORPUSCULAR HEMOGLOBIN 31.7 pg (26.0-34.0); MEAN CORPUSCULAR HGB CONC 31.2 G/dL (31.0-37.0); MEAN CORPUSCULAR VOLUME 102 fL (80-100); MONOCYTES # (AUTO) 0.1 K/uL (0.1-1.0); MONOCYTES % (AUTO) 7.9 % (2.0-9.0); NEUTROPHILS # (AUTO) 0.7 K/uL (1.8-7.7); NEUTROPHILS % (AUTO) 40.6 % (40.0-70.0); PLATELET COUNT (AUTO) 140 K/uL (150-450); RED BLOOD CELL COUNT(AUTO) 4.52 MIL/uL (4.00-5.20); RED CELL DISTRIBUTION WIDTH 18.3 % (11.5-14.5)
[2019-01-26] MEDS: SEVELAMER CARBONATE 800 MG TABLET PO SCH ×3 (08:33→16:50)
[2019-01-26] MEDS: POLYETHYLENE GLYCOL 3350 17 GM PACKET PO SCH (08:33)
[2019-01-26] MEDS: ALLOPURINOL 100 MG TABLET PO SCH (08:33)
[2019-01-26] MEDS: CHOLECALCIFEROL (VIT D3) 1,000 UNITS TABLET PO SCH (08:33)
[2019-01-26] MEDS: NITROGLYCERIN 2% (1 GM=INCH) PACKET TP SCH ×3 (08:34→20:58)
[2019-01-26] MEDS: SOTALOL HCL 80 MG TABLET PO SCH ×3 (08:38→21:00)
[2019-01-26] MEDS: APIXABAN 5 MG TABLET PO SCH ×2 (08:38→21:00)
[2019-01-26] MEDS: CALCITRIOL 0.25 MCG CAPSULE PO SCH (08:38)
[2019-01-26] MEDS: FERROUS SULFATE 325 MG EC TABLET PO SCH (08:39)
[2019-01-26] MEDS: DOCUSATE SODIUM 250 MG CAPSULE PO SCH ×2 (08:39→20:59)
[2019-01-26] MEDS: SERTRALINE HCL 50 MG TABLET PO SCH (08:40)
[2019-01-26] MEDS: SIMVASTATIN 20 MG TABLET PO SCH (08:40)
[2019-01-26] MEDS: PANTOPRAZOLE SODIUM 40 MG DR TABLET PO SCH (08:41)
[2019-01-26] MEDS: VITAMIN B COMP/VIT C/FOLIC ACID CAPSULE PO SCH (08:41)
[2019-01-26] MEDS: METOPROLOL TARTRATE 25 MG TABLET PO SCH ×3 (08:41→21:00)
[2019-01-26] MEDS: FUROSEMIDE 20 MG TABLET PO SCH (08:42)
[2019-01-26] MEDS: COLD CREAM, SKIN EMOLLIENT 340 GM JAR TP SCH ×2 (08:43→20:59)
[2019-01-26 09:42] LABS: BASOPHILS % (AUTO) 0.8 % (0.0-2.0); HEMATOCRIT 33.5 % (36-46); HEMOGLOBIN 10.8 g/dL (12.0-16.0); MEAN CORPUSCULAR HEMOGLOBIN 32.6 pg (26.0-34.0); MEAN CORPUSCULAR HGB CONC 32.2 G/dL (31.0-37.0); MEAN CORPUSCULAR VOLUME 101 fL (80-100); MONOCYTES # (AUTO) 0.2 K/uL (0.1-1.0); NEUTROPHILS # (AUTO) 1.6 K/uL (1.8-7.7); NEUTROPHILS % (AUTO) 51.2 % (40.0-70.0); PLATELET COUNT (AUTO) 149 K/uL (150-450); RED CELL DISTRIBUTION WIDTH 18.4 % (11.5-14.5)
[2019-01-26] MEDS ORDERED: TRIAMCINOLONE ACETONIDE 40 MG/ML VIAL IM ONE (15:00)
[2019-01-26] MEDS ORDERED: LIDOCAINE 1% 10 ML VIAL INJ ONE (15:00)
[2019-01-26] MEDS: GABAPENTIN 300 MG CAPSULE PO SCH (20:58)
[2019-01-26] MEDS: TEMAZEPAM 7.5 MG CAPSULE PO PRN (20:58)
[2019-01-26] MEDS: CETIRIZINE HCL 10 MG TABLET PO SCH (20:59)
[2019-01-26] MEDS: SENNA 187 MG TABLET PO SCH (20:59)
[2019-01-27 06:44] LABS: GLUCOMETER DEV NAME(LOC) 2WR.2; GLUCOSE,POINT OF CARE 84 MG/DL (70-110)
[2019-01-27 06:53] LABS: BASOPHILS % (AUTO) 0.9 % (0.0-2.0); EOSINOPHILS % (AUTO) 6.7 % (1.0-6.0); HEMATOCRIT 30.3 % (36-46); HEMOGLOBIN 9.8 g/dL (12.0-16.0); LYMPHOCYTES % (AUTO) 36.1 % (22.0-44.0); MEAN CORPUSCULAR HGB CONC 32.4 G/dL (31.0-37.0); MEAN CORPUSCULAR VOLUME 102 fL (80-100); MONOCYTES # (AUTO) 0.2 K/uL (0.1-1.0); MONOCYTES % (AUTO) 7.8 % (2.0-9.0); NEUTROPHILS # (AUTO) 1.4 K/uL (1.8-7.7); NEUTROPHILS % (AUTO) 48.5 % (40.0-70.0); PLATELET COUNT (AUTO) 142 K/uL (150-450); RED BLOOD CELL COUNT(AUTO) 2.97 MIL/uL (4.00-5.20); RED CELL DISTRIBUTION WIDTH 18.4 % (11.5-14.5)
[2019-01-27 07:07] LABS: CALCIUM, TOTAL 9.1 mg/dL (8.8-10.5); CREATININE 1.87 mg/dL (0.60-1.30); MAGNESIUM 1.9 mg/dL (1.80-2.40); PHOSPHORUS 5.2 mg/dL (2.5-4.9); POTASSIUM 4.3 mmol/L (3.5-5.1)
[2019-01-27 08:00] VITALS: BP 122/61
[2019-01-27] MEDS: FERROUS SULFATE 325 MG EC TABLET PO SCH (08:56)
[2019-01-27] MEDS: SEVELAMER CARBONATE 800 MG TABLET PO SCH ×3 (08:56→17:10)
[2019-01-27] MEDS: POLYETHYLENE GLYCOL 3350 17 GM PACKET PO SCH (08:56)
[2019-01-27] MEDS: SERTRALINE HCL 50 MG TABLET PO SCH (08:56)
[2019-01-27] MEDS: CALCITRIOL 0.25 MCG CAPSULE PO SCH (08:56)
[2019-01-27] MEDS: CHOLECALCIFEROL (VIT D3) 1,000 UNITS TABLET PO SCH (08:57)
[2019-01-27] MEDS: DOCUSATE SODIUM 250 MG CAPSULE PO SCH ×2 (08:57→21:12)
[2019-01-27] MEDS: PANTOPRAZOLE SODIUM 40 MG DR TABLET PO SCH (08:57)
[2019-01-27] MEDS: VITAMIN B COMP/VIT C/FOLIC ACID CAPSULE PO SCH (08:57)
[2019-01-27] MEDS: APIXABAN 5 MG TABLET PO SCH ×2 (08:57→21:12)
[2019-01-27] MEDS: COLD CREAM, SKIN EMOLLIENT 340 GM JAR TP SCH ×2 (08:58→21:14)
[2019-01-27] MEDS: ALLOPURINOL 100 MG TABLET PO SCH (08:58)
[2019-01-27] MEDS: NITROGLYCERIN 2% (1 GM=INCH) PACKET TP SCH ×3 (08:58→21:14)
[2019-01-27] MEDS: SIMVASTATIN 20 MG TABLET PO SCH (09:00)
[2019-01-27] MEDS: SOTALOL HCL 80 MG TABLET PO SCH ×2 (09:00→21:10)
[2019-01-27] MEDS: HYDROCODONE/ACETAMINOPHEN 5-325 MG TABLET PO PRN ×4 (09:00→23:41)
[2019-01-27] MEDS: METOPROLOL TARTRATE 25 MG TABLET PO SCH ×2 (09:00→21:11)
[2019-01-27 15:03] VITALS: BP 110/83
[2019-01-27 17:07] VITALS: BP 120/82
[2019-01-27 18:07] VITALS: BP 115/72
[2019-01-27 21:06] VITALS: BP 127/65
[2019-01-27] MEDS: GABAPENTIN 300 MG CAPSULE PO SCH (21:12)
[2019-01-27] MEDS: SENNA 187 MG TABLET PO SCH (21:12)
[2019-01-27] MEDS: CETIRIZINE HCL 10 MG TABLET PO SCH (21:12)
[2019-01-27] MEDS: TEMAZEPAM 7.5 MG CAPSULE PO PRN (21:12)
[2019-01-27 23:41] VITALS: BP 122/55
[2019-01-28 07:04] LABS: GLUCOMETER DEV NAME(LOC) 2WR.2; GLUCOSE,POINT OF CARE 170 MG/DL (70-110)
[2019-01-28 07:16] LABS: CALCIUM, TOTAL 9.2 mg/dL (8.8-10.5); CREATININE 1.68 mg/dL (0.60-1.30); MAGNESIUM 2.1 mg/dL (1.80-2.40); PHOSPHORUS 3.7 mg/dL (2.5-4.9); POTASSIUM 4.9 mmol/L (3.5-5.1)
[2019-01-28 07:25] VITALS: BP 104/63
[2019-01-28] MEDS: DOCUSATE SODIUM 250 MG CAPSULE PO SCH ×2 (08:33→21:32)
[2019-01-28] MEDS: CALCITRIOL 0.25 MCG CAPSULE PO SCH (08:33)
[2019-01-28] MEDS: METOPROLOL TARTRATE 25 MG TABLET PO SCH ×2 (08:33→21:32)
[2019-01-28] MEDS: SEVELAMER CARBONATE 800 MG TABLET PO SCH ×3 (08:33→17:34)
[2019-01-28] MEDS: SOTALOL HCL 80 MG TABLET PO SCH ×2 (08:34→21:33)
[2019-01-28] MEDS: NITROGLYCERIN 2% (1 GM=INCH) PACKET TP SCH ×3 (08:34→21:34)
[2019-01-28] MEDS: FERROUS SULFATE 325 MG EC TABLET PO SCH (08:34)
[2019-01-28] MEDS: ALLOPURINOL 100 MG TABLET PO SCH (08:34)
[2019-01-28] MEDS: APIXABAN 5 MG TABLET PO SCH ×2 (08:35→21:32)
[2019-01-28] MEDS: VITAMIN B COMP/VIT C/FOLIC ACID CAPSULE PO SCH (08:35)
[2019-01-28] MEDS: PANTOPRAZOLE SODIUM 40 MG DR TABLET PO SCH (08:40)
[2019-01-28] MEDS: CHOLECALCIFEROL (VIT D3) 1,000 UNITS TABLET PO SCH (08:40)
[2019-01-28] MEDS: POLYETHYLENE GLYCOL 3350 17 GM PACKET PO SCH (08:40)
[2019-01-28] MEDS: SIMVASTATIN 20 MG TABLET PO SCH (08:42)
[2019-01-28] MEDS: SERTRALINE HCL 50 MG TABLET PO SCH (08:43)
[2019-01-28] MEDS: COLD CREAM, SKIN EMOLLIENT 340 GM JAR TP SCH ×2 (08:45→21:34)
[2019-01-28] MEDS: HYDROCODONE/ACETAMINOPHEN 5-325 MG TABLET PO PRN ×2 (09:12→21:33)
[2019-01-28] MEDS: INSULIN LISPRO 100 UNITS/ML SQ PRN (09:16)
[2019-01-28 09:53] LABS: BILIRUBIN,URINE NEGATIVE (NEGATIVE); GLUCOSE, URINE (UA) NEGATIVE (NEGATIVE); KETONES,URINE NEGATIVE (NEGATIVE); LEUKOCYTE ESTERASE ,URINE TRACE (NEGATIVE); NITRATE,URINE NEGATIVE (NEGATIVE); OCCULT BLOOD,URINE NEGATIVE (NEGATIVE); PH,URINE 5.5 (5.0-8.0); PROTEIN,URINE NEGATIVE (NEGATIVE); UROBILINOGEN,URINE 0.2 mg/dL (<=1.0)
[2019-01-28 10:01] LABS: APPEARANCE,URINE HAZY (CLEAR)
[2019-01-28 10:02] LABS: BACTERIA,URINE None Seen /HPF (None Seen); RBC,URINE None Seen /HPF (0-2); SQUAMOUS EPITHELIAL CELL,UR Moderate /LPF (None Seen); WBC,URINE 0-2 /HPF (0-5)
[2019-01-28 15:40] VITALS: BP 110/67
[2019-01-28 21:30] VITALS: BP 105/75
[2019-01-28] MEDS: GABAPENTIN 300 MG CAPSULE PO SCH (21:32)
[2019-01-28] MEDS: SENNA 187 MG TABLET PO SCH (21:32)
[2019-01-28] MEDS: TEMAZEPAM 7.5 MG CAPSULE PO PRN (21:33)
[2019-01-28] MEDS: CETIRIZINE HCL 10 MG TABLET PO SCH (21:33)
[2019-01-29 00:46] VITALS: BP 94/72
[2019-01-29] MEDS: HYDROCODONE/ACETAMINOPHEN 5-325 MG TABLET PO PRN ×4 (03:06→22:09)
[2019-01-29 06:19] LABS: GLUCOMETER DEV NAME(LOC) 2WR.2; GLUCOSE,POINT OF CARE 124 MG/DL (70-110)
[2019-01-29 07:20] VITALS: BP 106/53
[2019-01-29] MEDS: SEVELAMER CARBONATE 800 MG TABLET PO SCH ×3 (08:50→17:12)
[2019-01-29] MEDS: PANTOPRAZOLE SODIUM 40 MG DR TABLET PO SCH (08:51)
[2019-01-29] MEDS: SIMVASTATIN 20 MG TABLET PO SCH (08:51)
[2019-01-29] MEDS: ALLOPURINOL 100 MG TABLET PO SCH (08:51)
[2019-01-29] MEDS: CALCITRIOL 0.25 MCG CAPSULE PO SCH (08:51)
[2019-01-29] MEDS: CHOLECALCIFEROL (VIT D3) 1,000 UNITS TABLET PO SCH (08:51)
[2019-01-29] MEDS: FERROUS SULFATE 325 MG EC TABLET PO SCH (08:51)
[2019-01-29] MEDS: APIXABAN 5 MG TABLET PO SCH ×2 (08:51→22:10)
[2019-01-29] MEDS: VITAMIN B COMP/VIT C/FOLIC ACID CAPSULE PO SCH (08:52)
[2019-01-29] MEDS: SOTALOL HCL 80 MG TABLET PO SCH ×2 (08:52→22:10)
[2019-01-29] MEDS: METOPROLOL TARTRATE 25 MG TABLET PO SCH ×2 (08:52→22:10)
[2019-01-29] MEDS: SERTRALINE HCL 50 MG TABLET PO SCH (08:52)
[2019-01-29] MEDS: COLD CREAM, SKIN EMOLLIENT 340 GM JAR TP SCH ×2 (08:53→22:11)
[2019-01-29] MEDS: POLYETHYLENE GLYCOL 3350 17 GM PACKET PO SCH (08:53)
[2019-01-29] MEDS: DOCUSATE SODIUM 250 MG CAPSULE PO SCH ×2 (08:56→22:10)
[2019-01-29] MEDS: NITROGLYCERIN 2% (1 GM=INCH) PACKET TP SCH ×3 (08:56→22:09)
[2019-01-29 15:30] VITALS: BP 126/60
[2019-01-29 22:05] VITALS: BP 120/87
[2019-01-29] MEDS: TEMAZEPAM 7.5 MG CAPSULE PO PRN (22:09)
[2019-01-29] MEDS: GABAPENTIN 300 MG CAPSULE PO SCH (22:10)
[2019-01-29] MEDS: CETIRIZINE HCL 10 MG TABLET PO SCH (22:10)
[2019-01-29] MEDS: SENNA 187 MG TABLET PO SCH (22:10)
[2019-01-30 06:00] VITALS: BP 113/67
[2019-01-30 06:53] LABS: GLUCOMETER DEV NAME(LOC) 2WR.1; GLUCOSE,POINT OF CARE 92 MG/DL (70-110)
[2019-01-30 07:20] VITALS: BP 115/72
[2019-01-30 07:28] LABS: CALCIUM, TOTAL 9.2 mg/dL (8.8-10.5); CREATININE 1.66 mg/dL (0.60-1.30); MAGNESIUM 1.9 mg/dL (1.80-2.40); PHOSPHORUS 4.2 mg/dL (2.5-4.9); POTASSIUM 4.5 mmol/L (3.5-5.1)
[2019-01-30] MEDS: SEVELAMER CARBONATE 800 MG TABLET PO SCH ×3 (08:10→17:34)
[2019-01-30] MEDS: DOCUSATE SODIUM 250 MG CAPSULE PO SCH ×3 (08:10→20:26)
[2019-01-30] MEDS: POLYETHYLENE GLYCOL 3350 17 GM PACKET PO SCH ×2 (08:10→09:00)
[2019-01-30] MEDS: SERTRALINE HCL 50 MG TABLET PO SCH (08:11)
[2019-01-30] MEDS: APIXABAN 5 MG TABLET PO SCH ×2 (08:11→20:26)
[2019-01-30] MEDS: FERROUS SULFATE 325 MG EC TABLET PO SCH (08:11)
[2019-01-30] MEDS: ALLOPURINOL 100 MG TABLET PO SCH (08:11)
[2019-01-30] MEDS: VITAMIN B COMP/VIT C/FOLIC ACID CAPSULE PO SCH (08:11)
[2019-01-30] MEDS: SIMVASTATIN 20 MG TABLET PO SCH (08:11)
[2019-01-30] MEDS: CHOLECALCIFEROL (VIT D3) 1,000 UNITS TABLET PO SCH (08:11)
[2019-01-30] MEDS: SOTALOL HCL 80 MG TABLET PO SCH ×2 (08:12→20:38)
[2019-01-30] MEDS: COLD CREAM, SKIN EMOLLIENT 340 GM JAR TP SCH ×2 (08:12→20:28)
[2019-01-30] MEDS: METOPROLOL TARTRATE 25 MG TABLET PO SCH ×2 (08:14→20:38)
[2019-01-30] MEDS: PANTOPRAZOLE SODIUM 40 MG DR TABLET PO SCH (08:14)
[2019-01-30] MEDS: NITROGLYCERIN 2% (1 GM=INCH) PACKET TP SCH ×3 (08:16→20:28)
[2019-01-30] MEDS: HYDROCODONE/ACETAMINOPHEN 5-325 MG TABLET PO PRN ×2 (10:42→22:15)
[2019-01-30] MEDS: CALCITRIOL 0.25 MCG CAPSULE PO SCH (12:46)
[2019-01-30 16:05] VITALS: BP 114/64
[2019-01-30 20:24] VITALS: BP 121/61
[2019-01-30] MEDS: SENNA 187 MG TABLET PO SCH (20:26)
[2019-01-30] MEDS: CETIRIZINE HCL 10 MG TABLET PO SCH (20:27)
[2019-01-30] MEDS: GABAPENTIN 300 MG CAPSULE PO SCH (20:27)
[2019-01-30] MEDS: TEMAZEPAM 7.5 MG CAPSULE PO PRN (22:15)
[2019-01-31] VITALS: BP 106/53
[2019-01-31 06:29] LABS: GLUCOMETER DEV NAME(LOC) 2WR.2; GLUCOSE,POINT OF CARE 100 MG/DL (70-110)
[2019-01-31 08:20] VITALS: BP 118/66
[2019-01-31] MEDS: CHOLECALCIFEROL (VIT D3) 1,000 UNITS TABLET PO SCH (08:24)
[2019-01-31] MEDS: VITAMIN B COMP/VIT C/FOLIC ACID CAPSULE PO SCH (08:24)
[2019-01-31] MEDS: CALCITRIOL 0.25 MCG CAPSULE PO SCH (08:24)
[2019-01-31] MEDS: ALLOPURINOL 100 MG TABLET PO SCH (08:24)
[2019-01-31] MEDS: PANTOPRAZOLE SODIUM 40 MG DR TABLET PO SCH (08:25)
[2019-01-31] MEDS: FERROUS SULFATE 325 MG EC TABLET PO SCH (08:25)
[2019-01-31] MEDS: SERTRALINE HCL 50 MG TABLET PO SCH (08:25)
[2019-01-31] MEDS: POLYETHYLENE GLYCOL 3350 17 GM PACKET PO SCH (08:26)
[2019-01-31] MEDS: METOPROLOL TARTRATE 25 MG TABLET PO SCH ×2 (08:26→20:16)
[2019-01-31] MEDS: SIMVASTATIN 20 MG TABLET PO SCH (08:26)
[2019-01-31] MEDS: SEVELAMER CARBONATE 800 MG TABLET PO SCH ×3 (08:26→16:16)
[2019-01-31] MEDS: DOCUSATE SODIUM 250 MG CAPSULE PO SCH ×2 (08:26→20:19)
[2019-01-31] MEDS: APIXABAN 5 MG TABLET PO SCH ×2 (08:26→20:24)
[2019-01-31] MEDS: SOTALOL HCL 80 MG TABLET PO SCH ×2 (08:27→20:14)
[2019-01-31] MEDS: NITROGLYCERIN 2% (1 GM=INCH) PACKET TP SCH ×3 (08:27→20:23)
[2019-01-31] MEDS: COLD CREAM, SKIN EMOLLIENT 340 GM JAR TP SCH ×2 (08:33→20:25)
[2019-01-31 15:19] VITALS: BP 140/76
[2019-01-31] MEDS: HYDROCODONE/ACETAMINOPHEN 5-325 MG TABLET PO PRN ×2 (16:16→22:24)
[2019-01-31] MEDS: SENNA 187 MG TABLET PO SCH (20:20)
[2019-01-31] MEDS: CETIRIZINE HCL 10 MG TABLET PO SCH (20:22)
[2019-01-31] MEDS: GABAPENTIN 300 MG CAPSULE PO SCH (20:23)
[2019-01-31 20:25] VITALS: BP 123/62
[2019-01-31] MEDS: TEMAZEPAM 7.5 MG CAPSULE PO PRN (22:24)
[2019-01-31 23:24] VITALS: BP 129/73
[2019-02-01 06:32] LABS: BASOPHILS % (AUTO) 1.8 % (0.0-2.0); EOSINOPHILS % (AUTO) 3.3 % (1.0-6.0); HEMATOCRIT 30.4 % (36-46); LYMPHOCYTES # (AUTO) 1.1 K/uL (1.0-4.8); LYMPHOCYTES % (AUTO) 39.2 % (22.0-44.0); MEAN CORPUSCULAR HEMOGLOBIN 33.3 pg (26.0-34.0); MEAN CORPUSCULAR VOLUME 101 fL (80-100); MONOCYTES # (AUTO) 0.2 K/uL (0.1-1.0); MONOCYTES % (AUTO) 7.9 % (2.0-9.0); NEUTROPHILS # (AUTO) 1.4 K/uL (1.8-7.7); NEUTROPHILS % (AUTO) 47.8 % (40.0-70.0); PLATELET COUNT (AUTO) 145 K/uL (150-450); RED BLOOD CELL COUNT(AUTO) 3.01 MIL/uL (4.00-5.20); RED CELL DISTRIBUTION WIDTH 17.8 % (11.5-14.5)
[2019-02-01 06:39] LABS: GLUCOMETER DEV NAME(LOC) 2WR.2; GLUCOSE,POINT OF CARE 91 MG/DL (70-110)
[2019-02-01 07:07] LABS: ALBUMIN 3.1 g/dL (3.4-5.0); BILIRUBIN,TOTAL 0.5 mg/dL (0.1-1.0); CALCIUM, TOTAL 9.1 mg/dL (8.8-10.5); CREATININE 1.49 mg/dL (0.60-1.30); MAGNESIUM 1.9 mg/dL (1.80-2.40); POTASSIUM 4.2 mmol/L (3.5-5.1); TOTAL PROTEIN, SERUM 7.5 g/dL (6.4-8.2)
[2019-02-01 07:15] VITALS: BP 126/61
[2019-02-01] MEDS: VITAMIN B COMP/VIT C/FOLIC ACID CAPSULE PO SCH (08:43)
[2019-02-01] MEDS: PANTOPRAZOLE SODIUM 40 MG DR TABLET PO SCH (08:43)
[2019-02-01] MEDS: POLYETHYLENE GLYCOL 3350 17 GM PACKET PO SCH (08:43)
[2019-02-01] MEDS: NITROGLYCERIN 2% (1 GM=INCH) PACKET TP SCH ×3 (08:43→20:16)
[2019-02-01] MEDS: CHOLECALCIFEROL (VIT D3) 1,000 UNITS TABLET PO SCH (08:43)
[2019-02-01] MEDS: ALLOPURINOL 100 MG TABLET PO SCH (08:43)
[2019-02-01] MEDS: SEVELAMER CARBONATE 800 MG TABLET PO SCH ×3 (08:43→17:34)
[2019-02-01] MEDS: SERTRALINE HCL 50 MG TABLET PO SCH (08:44)
[2019-02-01] MEDS: SIMVASTATIN 20 MG TABLET PO SCH (08:44)
[2019-02-01] MEDS: SOTALOL HCL 80 MG TABLET PO SCH ×2 (08:44→21:00)
[2019-02-01] MEDS: METOPROLOL TARTRATE 25 MG TABLET PO SCH ×2 (08:44→21:00)
[2019-02-01] MEDS: FERROUS SULFATE 325 MG EC TABLET PO SCH (08:44)
[2019-02-01] MEDS: APIXABAN 5 MG TABLET PO SCH ×2 (08:44→20:16)
[2019-02-01] MEDS: COLD CREAM, SKIN EMOLLIENT 340 GM JAR TP SCH ×2 (08:46→20:16)
[2019-02-01] MEDS: CALCITRIOL 0.25 MCG CAPSULE PO SCH (09:18)
[2019-02-01] MEDS: DOCUSATE SODIUM 250 MG CAPSULE PO SCH ×2 (09:18→20:16)
[2019-02-01] MEDS: HYDROCODONE/ACETAMINOPHEN 5-325 MG TABLET PO PRN ×2 (13:41→23:42)
[2019-02-01 15:40] VITALS: BP 117/56
[2019-02-01 15:51] VITALS: BP 115/50
[2019-02-01 20:10] VITALS: BP 138/73
[2019-02-01] MEDS: CETIRIZINE HCL 10 MG TABLET PO SCH (20:15)
[2019-02-01] MEDS: GABAPENTIN 300 MG CAPSULE PO SCH (20:15)
[2019-02-01] MEDS: SENNA 187 MG TABLET PO SCH (20:16)
[2019-02-01 22:30] VITALS: BP 110/52
[2019-02-01 23:42] VITALS: BP 138/59
[2019-02-01] MEDS: TEMAZEPAM 7.5 MG CAPSULE PO PRN (23:42)
[2019-02-02 06:34] LABS: GLUCOMETER DEV NAME(LOC) 2WR.1; GLUCOSE,POINT OF CARE 84 MG/DL (70-110)
[2019-02-02] MEDS: HYDROCODONE/ACETAMINOPHEN 5-325 MG TABLET PO PRN ×4 (06:36→23:48)
[2019-02-02 07:36] VITALS: BP 111/57
[2019-02-02] MEDS: NITROGLYCERIN 2% (1 GM=INCH) PACKET TP SCH ×3 (08:18→20:20)
[2019-02-02] MEDS: CHOLECALCIFEROL (VIT D3) 1,000 UNITS TABLET PO SCH (08:18)
[2019-02-02] MEDS: DOCUSATE SODIUM 250 MG CAPSULE PO SCH ×2 (08:18→20:20)
[2019-02-02] MEDS: POLYETHYLENE GLYCOL 3350 17 GM PACKET PO SCH (08:18)
[2019-02-02] MEDS: SIMVASTATIN 20 MG TABLET PO SCH (08:18)
[2019-02-02] MEDS: CALCITRIOL 0.25 MCG CAPSULE PO SCH (08:18)
[2019-02-02] MEDS: FERROUS SULFATE 325 MG EC TABLET PO SCH (08:19)
[2019-02-02] MEDS: VITAMIN B COMP/VIT C/FOLIC ACID CAPSULE PO SCH (08:19)
[2019-02-02] MEDS: SOTALOL HCL 80 MG TABLET PO SCH ×2 (08:19→20:20)
[2019-02-02] MEDS: METOPROLOL TARTRATE 25 MG TABLET PO SCH ×2 (08:19→20:20)
[2019-02-02] MEDS: PANTOPRAZOLE SODIUM 40 MG DR TABLET PO SCH (08:19)
[2019-02-02] MEDS: SERTRALINE HCL 50 MG TABLET PO SCH (08:19)
[2019-02-02] MEDS: SEVELAMER CARBONATE 800 MG TABLET PO SCH ×3 (08:19→17:33)
[2019-02-02] MEDS: ALLOPURINOL 100 MG TABLET PO SCH (08:19)
[2019-02-02] MEDS: APIXABAN 5 MG TABLET PO SCH ×2 (08:19→20:20)
[2019-02-02] MEDS: COLD CREAM, SKIN EMOLLIENT 340 GM JAR TP SCH ×2 (08:20→20:21)
[2019-02-02 15:30] VITALS: BP 130/80
[2019-02-02 20:17] VITALS: BP 124/73
[2019-02-02] MEDS: CETIRIZINE HCL 10 MG TABLET PO SCH (20:20)
[2019-02-02] MEDS: GABAPENTIN 300 MG CAPSULE PO SCH (20:20)
[2019-02-02] MEDS: SENNA 187 MG TABLET PO SCH (20:20)
[2019-02-02 23:48] VITALS: BP 119/80
[2019-02-02] MEDS: TEMAZEPAM 7.5 MG CAPSULE PO PRN (23:48)
[2019-02-03 06:35] LABS: GLUCOMETER DEV NAME(LOC) 2WR.1; GLUCOSE,POINT OF CARE 78 MG/DL (70-110)
[2019-02-03 07:00] VITALS: BP 129/59
[2019-02-03] MEDS: NITROGLYCERIN 2% (1 GM=INCH) PACKET TP SCH ×3 (08:06→20:40)
[2019-02-03] MEDS: SEVELAMER CARBONATE 800 MG TABLET PO SCH ×3 (08:06→17:46)
[2019-02-03] MEDS: FERROUS SULFATE 325 MG EC TABLET PO SCH (08:06)
[2019-02-03] MEDS: POLYETHYLENE GLYCOL 3350 17 GM PACKET PO SCH (08:06)
[2019-02-03] MEDS: SERTRALINE HCL 50 MG TABLET PO SCH (08:07)
[2019-02-03] MEDS: CHOLECALCIFEROL (VIT D3) 1,000 UNITS TABLET PO SCH (08:07)
[2019-02-03] MEDS: VITAMIN B COMP/VIT C/FOLIC ACID CAPSULE PO SCH (08:07)
[2019-02-03] MEDS: PANTOPRAZOLE SODIUM 40 MG DR TABLET PO SCH (08:08)
[2019-02-03] MEDS: METOPROLOL TARTRATE 25 MG TABLET PO SCH ×2 (08:08→20:41)
[2019-02-03] MEDS: APIXABAN 5 MG TABLET PO SCH ×2 (08:09→20:40)
[2019-02-03] MEDS: ALLOPURINOL 100 MG TABLET PO SCH (08:09)
[2019-02-03] MEDS: DOCUSATE SODIUM 250 MG CAPSULE PO SCH ×2 (08:09→20:40)
[2019-02-03] MEDS: CALCITRIOL 0.25 MCG CAPSULE PO SCH (08:09)
[2019-02-03] MEDS: COLD CREAM, SKIN EMOLLIENT 340 GM JAR TP SCH ×2 (08:10→20:41)
[2019-02-03] MEDS: SOTALOL HCL 80 MG TABLET PO SCH ×2 (08:10→20:40)
[2019-02-03] MEDS: SIMVASTATIN 20 MG TABLET PO SCH (08:10)
[2019-02-03] MEDS: HYDROCODONE/ACETAMINOPHEN 5-325 MG TABLET PO PRN ×4 (08:13→23:39)
[2019-02-03 12:46] LABS: C-REACTIVE PROTEIN QUANT 0.8 mg/dL (0.00-0.30)
[2019-02-03 12:56] LABS: URIC ACID 5.4 mg/dL (2.6-7.2)
[2019-02-03 16:15] VITALS: BP 130/71
[2019-02-03 20:30] VITALS: BP 134/75
[2019-02-03] MEDS: CETIRIZINE HCL 10 MG TABLET PO SCH (20:40)
[2019-02-03] MEDS: GABAPENTIN 300 MG CAPSULE PO SCH (20:40)
[2019-02-03] MEDS: SENNA 187 MG TABLET PO SCH (20:40)
[2019-02-03] MEDS: TEMAZEPAM 7.5 MG CAPSULE PO PRN (23:38)
[2019-02-03 23:39] VITALS: BP 145/65
[2019-02-04 07:20] VITALS: BP 110/67
[2019-02-04] MEDS: FERROUS SULFATE 325 MG EC TABLET PO SCH (08:38)
[2019-02-04] MEDS: ALLOPURINOL 100 MG TABLET PO SCH (08:38)
[2019-02-04] MEDS: SERTRALINE HCL 50 MG TABLET PO SCH (08:38)
[2019-02-04] MEDS: SIMVASTATIN 20 MG TABLET PO SCH (08:39)
[2019-02-04] MEDS: HYDROCODONE/ACETAMINOPHEN 5-325 MG TABLET PO PRN ×3 (08:39→20:16)
[2019-02-04] MEDS: SEVELAMER CARBONATE 800 MG TABLET PO SCH ×3 (08:39→17:47)
[2019-02-04] MEDS: SOTALOL HCL 80 MG TABLET PO SCH ×2 (08:39→20:16)
[2019-02-04] MEDS: CHOLECALCIFEROL (VIT D3) 1,000 UNITS TABLET PO SCH (08:39)
[2019-02-04] MEDS: PANTOPRAZOLE SODIUM 40 MG DR TABLET PO SCH (08:40)
[2019-02-04] MEDS: NITROGLYCERIN 2% (1 GM=INCH) PACKET TP SCH ×3 (08:40→20:15)
[2019-02-04] MEDS: METOPROLOL TARTRATE 25 MG TABLET PO SCH ×2 (08:40→20:16)
[2019-02-04] MEDS: APIXABAN 5 MG TABLET PO SCH ×2 (08:40→20:16)
[2019-02-04] MEDS: CALCITRIOL 0.25 MCG CAPSULE PO SCH (08:40)
[2019-02-04] MEDS: COLD CREAM, SKIN EMOLLIENT 340 GM JAR TP SCH ×2 (08:40→20:28)
[2019-02-04] MEDS: VITAMIN B COMP/VIT C/FOLIC ACID CAPSULE PO SCH (08:42)
[2019-02-04] MEDS: POLYETHYLENE GLYCOL 3350 17 GM PACKET PO SCH (09:00)
[2019-02-04] MEDS: DOCUSATE SODIUM 250 MG CAPSULE PO SCH ×2 (09:00→20:17)
[2019-02-04 15:52] VITALS: BP 132/64
[2019-02-04 19:46] VITALS: BP 114/64
[2019-02-04] MEDS: CETIRIZINE HCL 10 MG TABLET PO SCH (20:16)
[2019-02-04] MEDS: GABAPENTIN 300 MG CAPSULE PO SCH (20:16)
[2019-02-04] MEDS: SENNA 187 MG TABLET PO SCH (20:17)
[2019-02-05] VITALS: BP 109/74
[2019-02-05] MEDS: TEMAZEPAM 7.5 MG CAPSULE PO PRN ×2 (00:19→23:42)
[2019-02-05] MEDS: HYDROCODONE/ACETAMINOPHEN 5-325 MG TABLET PO PRN ×4 (00:19→23:42)
[2019-02-05 06:35] LABS: BASOPHILS % (AUTO) 1.4 % (0.0-2.0); EOSINOPHILS % (AUTO) 4.7 % (1.0-6.0); HEMATOCRIT 34.2 % (36-46); HEMOGLOBIN 11.1 g/dL (12.0-16.0); LYMPHOCYTES # (AUTO) 1.2 K/uL (1.0-4.8); LYMPHOCYTES % (AUTO) 39.7 % (22.0-44.0); MEAN CORPUSCULAR HEMOGLOBIN 32.8 pg (26.0-34.0); MEAN CORPUSCULAR HGB CONC 32.5 G/dL (31.0-37.0); MEAN CORPUSCULAR VOLUME 101 fL (80-100); MONOCYTES # (AUTO) 0.3 K/uL (0.1-1.0); MONOCYTES % (AUTO) 8.5 % (2.0-9.0); NEUTROPHILS # (AUTO) 1.4 K/uL (1.8-7.7); NEUTROPHILS % (AUTO) 45.7 % (40.0-70.0); PLATELET COUNT (AUTO) 165 K/uL (150-450); RED BLOOD CELL COUNT(AUTO) 3.39 MIL/uL (4.00-5.20); RED CELL DISTRIBUTION WIDTH 17.4 % (11.5-14.5)
[2019-02-05 06:43] LABS: CALCIUM, TOTAL 9.3 mg/dL (8.8-10.5); CREATININE 1.58 mg/dL (0.60-1.30); MAGNESIUM 1.9 mg/dL (1.80-2.40); PHOSPHORUS 4.6 mg/dL (2.5-4.9)
[2019-02-05 07:20] VITALS: BP 90/58
[2019-02-05] MEDS: CHOLECALCIFEROL (VIT D3) 1,000 UNITS TABLET PO SCH (08:21)
[2019-02-05] MEDS: FERROUS SULFATE 325 MG EC TABLET PO SCH (08:21)
[2019-02-05] MEDS: DOCUSATE SODIUM 250 MG CAPSULE PO SCH ×2 (08:21→20:41)
[2019-02-05] MEDS: SEVELAMER CARBONATE 800 MG TABLET PO SCH ×3 (08:21→17:11)
[2019-02-05] MEDS: CALCITRIOL 0.25 MCG CAPSULE PO SCH (08:21)
[2019-02-05] MEDS: ALLOPURINOL 100 MG TABLET PO SCH (08:21)
[2019-02-05] MEDS: PANTOPRAZOLE SODIUM 40 MG DR TABLET PO SCH (08:22)
[2019-02-05] MEDS: POLYETHYLENE GLYCOL 3350 17 GM PACKET PO SCH (08:22)
[2019-02-05] MEDS: SOTALOL HCL 80 MG TABLET PO SCH ×3 (08:22→20:41)
[2019-02-05] MEDS: METOPROLOL TARTRATE 25 MG TABLET PO SCH ×3 (08:22→20:41)
[2019-02-05] MEDS: SERTRALINE HCL 50 MG TABLET PO SCH (08:22)
[2019-02-05] MEDS: APIXABAN 5 MG TABLET PO SCH ×2 (08:22→20:41)
[2019-02-05] MEDS: VITAMIN B COMP/VIT C/FOLIC ACID CAPSULE PO SCH (08:22)
[2019-02-05] MEDS: SIMVASTATIN 20 MG TABLET PO SCH (08:22)
[2019-02-05] MEDS: COLD CREAM, SKIN EMOLLIENT 340 GM JAR TP SCH ×2 (08:23→20:45)
[2019-02-05 16:05] VITALS: BP 122/60
[2019-02-05] MEDS ORDERED: TEMA7.5C17 PO (20:18)
[2019-02-05] MEDS ORDERED: PANT40TA25 PO (20:18)
[2019-02-05] MEDS ORDERED: POLY17PO PO (20:18)
[2019-02-05] MEDS ORDERED: FERR-89 PO (20:18)
[2019-02-05] MEDS ORDERED: APIX5TAB PO (20:18)
[2019-02-05] MEDS ORDERED: FOLI1CAP2 PO (20:18)
[2019-02-05] MEDS ORDERED: SEVEC800 PO (20:18)
[2019-02-05] MEDS ORDERED: SERT50TA12 PO (20:18)
[2019-02-05] MEDS ORDERED: GABA-531 PO (20:18)
[2019-02-05] MEDS: SENNA 187 MG TABLET PO SCH (20:40)
[2019-02-05] MEDS: GABAPENTIN 300 MG CAPSULE PO SCH (20:40)
[2019-02-05] MEDS: CETIRIZINE HCL 10 MG TABLET PO SCH (20:41)
[2019-02-05 20:48] VITALS: BP 114/57
[2019-02-05 23:42] VITALS: BP 106/45
[2019-02-06 06:41] LABS: EOSINOPHILS % (AUTO) 4.1 % (1.0-6.0); HEMATOCRIT 32.4 % (36-46); HEMOGLOBIN 10.5 g/dL (12.0-16.0); LYMPHOCYTES # (AUTO) 1.1 K/uL (1.0-4.8); LYMPHOCYTES % (AUTO) 40.7 % (22.0-44.0); MEAN CORPUSCULAR HEMOGLOBIN 32.7 pg (26.0-34.0); MEAN CORPUSCULAR HGB CONC 32.3 G/dL (31.0-37.0); MEAN CORPUSCULAR VOLUME 101 fL (80-100); MONOCYTES # (AUTO) 0.2 K/uL (0.1-1.0); MONOCYTES % (AUTO) 9.1 % (2.0-9.0); NEUTROPHILS # (AUTO) 1.2 K/uL (1.8-7.7); NEUTROPHILS % (AUTO) 45.1 % (40.0-70.0); PLATELET COUNT (AUTO) 156 K/uL (150-450); RED BLOOD CELL COUNT(AUTO) 3.21 MIL/uL (4.00-5.20); RED CELL DISTRIBUTION WIDTH 16.8 % (11.5-14.5)
[2019-02-06 06:59] LABS: ALBUMIN 3.2 g/dL (3.4-5.0); BILIRUBIN,TOTAL 0.5 mg/dL (0.1-1.0); CALCIUM, TOTAL 9.4 mg/dL (8.8-10.5); CREATININE 1.73 mg/dL (0.60-1.30); TOTAL PROTEIN, SERUM 7.2 g/dL (6.4-8.2)
[2019-02-06] MEDS: FERROUS SULFATE 325 MG EC TABLET PO SCH (07:53)
[2019-02-06] MEDS: VITAMIN B COMP/VIT C/FOLIC ACID CAPSULE PO SCH (07:53)
[2019-02-06 07:54] VITALS: BP 111/52
[2019-02-06] MEDS: CALCITRIOL 0.25 MCG CAPSULE PO SCH (07:54)
[2019-02-06] MEDS: METOPROLOL TARTRATE 25 MG TABLET PO SCH ×2 (07:54→21:19)
[2019-02-06] MEDS: HYDROCODONE/ACETAMINOPHEN 5-325 MG TABLET PO PRN ×3 (07:54→23:36)
[2019-02-06] MEDS: SOTALOL HCL 80 MG TABLET PO SCH ×2 (07:54→21:19)
[2019-02-06] MEDS: SIMVASTATIN 20 MG TABLET PO SCH (07:54)
[2019-02-06] MEDS: CHOLECALCIFEROL (VIT D3) 1,000 UNITS TABLET PO SCH (07:54)
[2019-02-06] MEDS: SERTRALINE HCL 50 MG TABLET PO SCH (07:54)
[2019-02-06] MEDS: SEVELAMER CARBONATE 800 MG TABLET PO SCH ×3 (07:54→17:08)
[2019-02-06] MEDS: PANTOPRAZOLE SODIUM 40 MG DR TABLET PO SCH (07:54)
[2019-02-06] MEDS: APIXABAN 5 MG TABLET PO SCH ×2 (07:54→21:19)
[2019-02-06] MEDS: ALLOPURINOL 100 MG TABLET PO SCH (07:54)
[2019-02-06 07:56] VITALS: BP 111/52
[2019-02-06] MEDS: COLD CREAM, SKIN EMOLLIENT 340 GM JAR TP SCH ×2 (07:56→21:00)
[2019-02-06] MEDS: POLYETHYLENE GLYCOL 3350 17 GM PACKET PO SCH ×2 (15:45→15:52)
[2019-02-06] MEDS: DOCUSATE SODIUM 250 MG CAPSULE PO SCH ×2 (15:46→21:19)
[2019-02-06 16:33] VITALS: BP 113/59
[2019-02-06] MEDS: SENNA 187 MG TABLET PO SCH (21:19)
[2019-02-06] MEDS: GABAPENTIN 300 MG CAPSULE PO SCH (21:19)
[2019-02-06] MEDS: CETIRIZINE HCL 10 MG TABLET PO SCH (21:19)
[2019-02-06 23:36] VITALS: BP 131/69
[2019-02-06] MEDS: TEMAZEPAM 7.5 MG CAPSULE PO PRN (23:36)
[2019-02-07 07:40] VITALS: BP 109/43
[2019-02-07] MEDS: SEVELAMER CARBONATE 800 MG TABLET PO SCH ×3 (08:35→17:21)
[2019-02-07] MEDS: HYDROCODONE/ACETAMINOPHEN 5-325 MG TABLET PO PRN ×3 (08:35→23:22)
[2019-02-07] MEDS: POLYETHYLENE GLYCOL 3350 17 GM PACKET PO SCH (08:35)
[2019-02-07] MEDS: PANTOPRAZOLE SODIUM 40 MG DR TABLET PO SCH (08:35)
[2019-02-07] MEDS: CHOLECALCIFEROL (VIT D3) 1,000 UNITS TABLET PO SCH (08:35)
[2019-02-07] MEDS: SERTRALINE HCL 50 MG TABLET PO SCH (08:35)
[2019-02-07] MEDS: VITAMIN B COMP/VIT C/FOLIC ACID CAPSULE PO SCH (08:36)
[2019-02-07] MEDS: APIXABAN 5 MG TABLET PO SCH ×2 (08:36→20:28)
[2019-02-07] MEDS: ALLOPURINOL 100 MG TABLET PO SCH (08:36)
[2019-02-07] MEDS: DOCUSATE SODIUM 250 MG CAPSULE PO SCH ×2 (08:36→20:27)
[2019-02-07] MEDS: FERROUS SULFATE 325 MG EC TABLET PO SCH (08:37)
[2019-02-07] MEDS: SIMVASTATIN 20 MG TABLET PO SCH (08:37)
[2019-02-07] MEDS: CALCITRIOL 0.25 MCG CAPSULE PO SCH (08:37)
[2019-02-07] MEDS: SOTALOL HCL 80 MG TABLET PO SCH ×2 (08:38→20:28)
[2019-02-07] MEDS: METOPROLOL TARTRATE 25 MG TABLET PO SCH ×2 (08:38→20:27)
[2019-02-07] MEDS: COLD CREAM, SKIN EMOLLIENT 340 GM JAR TP SCH ×2 (09:00→20:31)
[2019-02-07 10:27] LABS: CALCIUM, TOTAL 9.3 mg/dL (8.8-10.5); CREATININE 1.75 mg/dL (0.60-1.30); MAGNESIUM 1.9 mg/dL (1.80-2.40); PHOSPHORUS 4.2 mg/dL (2.5-4.9); POTASSIUM 4.2 mmol/L (3.5-5.1)
[2019-02-07 13:01] VITALS: BP 125/65
[2019-02-07 15:48] VITALS: BP 119/82
[2019-02-07] MEDS: SENNA 187 MG TABLET PO SCH (20:27)
[2019-02-07] MEDS: GABAPENTIN 300 MG CAPSULE PO SCH (20:27)
[2019-02-07] MEDS: CETIRIZINE HCL 10 MG TABLET PO SCH (20:27)
[2019-02-07 23:22] VITALS: BP 120/68
[2019-02-07] MEDS: TEMAZEPAM 7.5 MG CAPSULE PO PRN (23:22)
[2019-02-08 08:04] VITALS: BP 92/69
[2019-02-08] MEDS: CALCITRIOL 0.25 MCG CAPSULE PO SCH (08:13)
[2019-02-08] MEDS: CHOLECALCIFEROL (VIT D3) 1,000 UNITS TABLET PO SCH (08:13)
[2019-02-08] MEDS: FERROUS SULFATE 325 MG EC TABLET PO SCH (08:13)
[2019-02-08] MEDS: SEVELAMER CARBONATE 800 MG TABLET PO SCH ×3 (08:13→17:24)
[2019-02-08] MEDS: SIMVASTATIN 20 MG TABLET PO SCH (08:13)
[2019-02-08] MEDS: APIXABAN 5 MG TABLET PO SCH ×2 (08:13→19:55)
[2019-02-08] MEDS: VITAMIN B COMP/VIT C/FOLIC ACID CAPSULE PO SCH (08:13)
[2019-02-08] MEDS: SERTRALINE HCL 50 MG TABLET PO SCH (08:14)
[2019-02-08] MEDS: PANTOPRAZOLE SODIUM 40 MG DR TABLET PO SCH (08:14)
[2019-02-08] MEDS: METOPROLOL TARTRATE 25 MG TABLET PO SCH ×2 (08:14→19:55)
[2019-02-08] MEDS: ALLOPURINOL 100 MG TABLET PO SCH (08:14)
[2019-02-08] MEDS: SOTALOL HCL 80 MG TABLET PO SCH ×2 (08:14→19:55)
[2019-02-08] MEDS: POLYETHYLENE GLYCOL 3350 17 GM PACKET PO SCH (08:14)
[2019-02-08] MEDS: DOCUSATE SODIUM 250 MG CAPSULE PO SCH ×2 (08:15→19:55)
[2019-02-08] MEDS: COLD CREAM, SKIN EMOLLIENT 340 GM JAR TP SCH ×2 (08:19→19:57)
[2019-02-08 15:24] VITALS: BP 123/78
[2019-02-08] MEDS: HYDROCODONE/ACETAMINOPHEN 5-325 MG TABLET PO PRN ×2 (15:24→23:13)
[2019-02-08 19:55] VITALS: BP 113/74
[2019-02-08] MEDS: GABAPENTIN 300 MG CAPSULE PO SCH (19:55)
[2019-02-08] MEDS: SENNA 187 MG TABLET PO SCH (19:55)
[2019-02-08] MEDS: CETIRIZINE HCL 10 MG TABLET PO SCH (19:55)
[2019-02-08 23:13] VITALS: BP 116/63
[2019-02-08] MEDS: TEMAZEPAM 7.5 MG CAPSULE PO PRN (23:13)
[2019-02-09 07:51] VITALS: BP 107/69
[2019-02-09] MEDS: ALLOPURINOL 100 MG TABLET PO SCH (08:21)
[2019-02-09] MEDS: VITAMIN B COMP/VIT C/FOLIC ACID CAPSULE PO SCH (08:21)
[2019-02-09] MEDS: SOTALOL HCL 80 MG TABLET PO SCH ×2 (08:21→20:49)
[2019-02-09] MEDS: SERTRALINE HCL 50 MG TABLET PO SCH (08:21)
[2019-02-09] MEDS: SEVELAMER CARBONATE 800 MG TABLET PO SCH ×3 (08:21→17:29)
[2019-02-09] MEDS: HYDROCODONE/ACETAMINOPHEN 5-325 MG TABLET PO PRN ×4 (08:21→23:35)
[2019-02-09] MEDS: CHOLECALCIFEROL (VIT D3) 1,000 UNITS TABLET PO SCH (08:21)
[2019-02-09] MEDS: CALCITRIOL 0.25 MCG CAPSULE PO SCH (08:21)
[2019-02-09] MEDS: DOCUSATE SODIUM 250 MG CAPSULE PO SCH ×2 (08:22→20:48)
[2019-02-09] MEDS: PANTOPRAZOLE SODIUM 40 MG DR TABLET PO SCH (08:22)
[2019-02-09] MEDS: COLD CREAM, SKIN EMOLLIENT 340 GM JAR TP SCH ×2 (08:22→20:50)
[2019-02-09] MEDS: POLYETHYLENE GLYCOL 3350 17 GM PACKET PO SCH (08:22)
[2019-02-09] MEDS: SIMVASTATIN 20 MG TABLET PO SCH (08:22)
[2019-02-09] MEDS: METOPROLOL TARTRATE 25 MG TABLET PO SCH ×2 (08:22→20:49)
[2019-02-09] MEDS: FERROUS SULFATE 325 MG EC TABLET PO SCH (08:22)
[2019-02-09] MEDS: APIXABAN 5 MG TABLET PO SCH ×2 (08:22→20:48)
[2019-02-09 15:40] VITALS: BP 112/66
[2019-02-09 20:45] VITALS: BP 124/68
[2019-02-09] MEDS: SENNA 187 MG TABLET PO SCH (20:48)
[2019-02-09] MEDS: CETIRIZINE HCL 10 MG TABLET PO SCH (20:48)
[2019-02-09] MEDS: GABAPENTIN 300 MG CAPSULE PO SCH (20:48)
[2019-02-09 23:35] VITALS: BP 99/58
[2019-02-09] MEDS: TEMAZEPAM 7.5 MG CAPSULE PO PRN (23:35)
[2019-02-10 06:47] LABS: HEMATOCRIT 33.1 % (36-46); HEMOGLOBIN 10.9 g/dL (12.0-16.0); MEAN CORPUSCULAR HEMOGLOBIN 32.7 pg (26.0-34.0); MEAN CORPUSCULAR HGB CONC 32.9 G/dL (31.0-37.0); MEAN CORPUSCULAR VOLUME 99 fL (80-100); PLATELET COUNT (AUTO) 150 K/uL (150-450); RED BLOOD CELL COUNT(AUTO) 3.33 MIL/uL (4.00-5.20); RED CELL DISTRIBUTION WIDTH 16.3 % (11.5-14.5)
[2019-02-10 07:11] LABS: ALBUMIN 3.1 g/dL (3.4-5.0); BILIRUBIN,TOTAL 0.3 mg/dL (0.1-1.0); CALCIUM, TOTAL 9.2 mg/dL (8.8-10.5); CREATININE 1.94 mg/dL (0.60-1.30); MAGNESIUM 1.9 mg/dL (1.80-2.40); PHOSPHORUS 4.8 mg/dL (2.5-4.9); POTASSIUM 4.2 mmol/L (3.5-5.1); TOTAL PROTEIN, SERUM 7.1 g/dL (6.4-8.2)
[2019-02-10 07:17] LABS: BAND NEUTROPHILS % (MANUAL) 0 % (0-5)
[2019-02-10 07:22] LABS: BASOPHILS % (MANUAL) 1 % (0-2); EOSINOPHILS % (MANUAL) 5 % (1-6); LYMPHOCYTES % (MANUAL) 43 % (22-44); MONOCYTES % (MANUAL) 4 % (2-9); SEGMENTED NEUTROPHILS % 47 % (40-70)
[2019-02-10 07:45] VITALS: BP 98/60
[2019-02-10] MEDS: FERROUS SULFATE 325 MG EC TABLET PO SCH (07:50)
[2019-02-10] MEDS: SEVELAMER CARBONATE 800 MG TABLET PO SCH ×3 (07:50→17:47)
[2019-02-10] MEDS: CHOLECALCIFEROL (VIT D3) 1,000 UNITS TABLET PO SCH (08:03)
[2019-02-10] MEDS: SERTRALINE HCL 50 MG TABLET PO SCH (08:03)
[2019-02-10] MEDS: VITAMIN B COMP/VIT C/FOLIC ACID CAPSULE PO SCH (08:03)
[2019-02-10] MEDS: HYDROCODONE/ACETAMINOPHEN 5-325 MG TABLET PO PRN ×4 (08:04→23:47)
[2019-02-10] MEDS: SIMVASTATIN 20 MG TABLET PO SCH (08:04)
[2019-02-10] MEDS: ALLOPURINOL 100 MG TABLET PO SCH (08:05)
[2019-02-10] MEDS: APIXABAN 5 MG TABLET PO SCH ×2 (08:05→21:23)
[2019-02-10] MEDS: PANTOPRAZOLE SODIUM 40 MG DR TABLET PO SCH (08:05)
[2019-02-10] MEDS: COLD CREAM, SKIN EMOLLIENT 340 GM JAR TP SCH ×2 (08:09→21:26)
[2019-02-10] MEDS: CALCITRIOL 0.25 MCG CAPSULE PO SCH (08:09)
[2019-02-10] MEDS: POLYETHYLENE GLYCOL 3350 17 GM PACKET PO SCH (08:45)
[2019-02-10] MEDS: DOCUSATE SODIUM 250 MG CAPSULE PO SCH ×2 (08:45→21:25)
[2019-02-10] MEDS: SOTALOL HCL 80 MG TABLET PO SCH ×2 (08:46→21:00)
[2019-02-10 14:20] VITALS: BP 104/60
[2019-02-10] MEDS: METOPROLOL TARTRATE 25 MG TABLET PO SCH (21:00)
[2019-02-10 21:20] VITALS: BP 109/65
[2019-02-10] MEDS: CETIRIZINE HCL 10 MG TABLET PO SCH (21:25)
[2019-02-10] MEDS: SENNA 187 MG TABLET PO SCH (21:25)
[2019-02-10] MEDS: GABAPENTIN 300 MG CAPSULE PO SCH (21:26)
[2019-02-10] MEDS: ACETAMINOPHEN 325 MG TABLET PO PRN (21:27)
[2019-02-10 23:47] VITALS: BP 106/59
[2019-02-10] MEDS: TEMAZEPAM 7.5 MG CAPSULE PO PRN (23:47)
[2019-02-11 07:35] VITALS: BP 109/69
[2019-02-11] MEDS: SEVELAMER CARBONATE 800 MG TABLET PO SCH ×3 (07:55→16:45)
[2019-02-11] MEDS: FERROUS SULFATE 325 MG EC TABLET PO SCH (07:55)
[2019-02-11] MEDS: APIXABAN 5 MG TABLET PO SCH ×2 (08:15→20:33)
[2019-02-11] MEDS: SIMVASTATIN 20 MG TABLET PO SCH (08:15)
[2019-02-11] MEDS: SERTRALINE HCL 50 MG TABLET PO SCH (08:15)
[2019-02-11] MEDS: CHOLECALCIFEROL (VIT D3) 1,000 UNITS TABLET PO SCH (08:15)
[2019-02-11] MEDS: VITAMIN B COMP/VIT C/FOLIC ACID CAPSULE PO SCH (08:16)
[2019-02-11] MEDS: CALCITRIOL 0.25 MCG CAPSULE PO SCH (08:16)
[2019-02-11] MEDS: HYDROCODONE/ACETAMINOPHEN 5-325 MG TABLET PO PRN ×3 (08:16→23:50)
[2019-02-11] MEDS: ALLOPURINOL 100 MG TABLET PO SCH (08:17)
[2019-02-11] MEDS: COLD CREAM, SKIN EMOLLIENT 340 GM JAR TP SCH ×2 (08:17→20:34)
[2019-02-11] MEDS: SOTALOL HCL 80 MG TABLET PO SCH ×2 (08:17→20:35)
[2019-02-11] MEDS: PANTOPRAZOLE SODIUM 40 MG DR TABLET PO SCH (08:18)
[2019-02-11] MEDS: DOCUSATE SODIUM 250 MG CAPSULE PO SCH ×2 (08:18→20:33)
[2019-02-11] MEDS: POLYETHYLENE GLYCOL 3350 17 GM PACKET PO SCH (12:24)
[2019-02-11 13:12] LABS: CALCIUM, TOTAL 9.1 mg/dL (8.8-10.5); CREATININE 2.12 mg/dL (0.60-1.30); MAGNESIUM 1.9 mg/dL (1.80-2.40); PHOSPHORUS 4.4 mg/dL (2.5-4.9); POTASSIUM 4.4 mmol/L (3.5-5.1)
[2019-02-11] MEDS: LIDOCAINE 5% TRANSDERMAL PATCH TD PRN (14:24)
[2019-02-11 15:36] VITALS: BP 109/49
[2019-02-11 20:30] VITALS: BP 113/55
[2019-02-11] MEDS: CETIRIZINE HCL 10 MG TABLET PO SCH (20:33)
[2019-02-11] MEDS: GABAPENTIN 300 MG CAPSULE PO SCH (20:33)
[2019-02-11] MEDS: SENNA 187 MG TABLET PO SCH (20:33)
[2019-02-11 23:50] VITALS: BP 105/62
[2019-02-11] MEDS: TEMAZEPAM 7.5 MG CAPSULE PO PRN (23:50)
[2019-02-12 06:39] LABS: BASOPHILS % (AUTO) 1.1 % (0.0-2.0); EOSINOPHILS % (AUTO) 4.9 % (1.0-6.0); HEMATOCRIT 31.7 % (36-46); HEMOGLOBIN 10.4 g/dL (12.0-16.0); LYMPHOCYTES # (AUTO) 1.2 K/uL (1.0-4.8); LYMPHOCYTES % (AUTO) 40.8 % (22.0-44.0); MEAN CORPUSCULAR HEMOGLOBIN 32.8 pg (26.0-34.0); MEAN CORPUSCULAR HGB CONC 32.7 G/dL (31.0-37.0); MEAN CORPUSCULAR VOLUME 100 fL (80-100); MONOCYTES # (AUTO) 0.2 K/uL (0.1-1.0); MONOCYTES % (AUTO) 6.7 % (2.0-9.0); NEUTROPHILS # (AUTO) 1.3 K/uL (1.8-7.7); NEUTROPHILS % (AUTO) 46.5 % (40.0-70.0); RED BLOOD CELL COUNT(AUTO) 3.16 MIL/uL (4.00-5.20); RED CELL DISTRIBUTION WIDTH 15.9 % (11.5-14.5)
[2019-02-12 06:54] LABS: ALBUMIN 3.2 g/dL (3.4-5.0); BILIRUBIN,TOTAL 0.4 mg/dL (0.1-1.0); CALCIUM, TOTAL 9.3 mg/dL (8.8-10.5); CREATININE 1.83 mg/dL (0.60-1.30); MAGNESIUM 2.1 mg/dL (1.80-2.40); PHOSPHORUS 4.7 mg/dL (2.5-4.9); TOTAL PROTEIN, SERUM 7.2 g/dL (6.4-8.2)
[2019-02-12 07:20] VITALS: BP 106/50
[2019-02-12 08:32] LABS: PLATELET COUNT (AUTO) 128 K/uL (150-450)
[2019-02-12] MEDS: HYDROCODONE/ACETAMINOPHEN 5-325 MG TABLET PO PRN ×3 (09:00→23:20)
[2019-02-12] MEDS: DOCUSATE SODIUM 250 MG CAPSULE PO SCH ×2 (09:24→20:18)
[2019-02-12] MEDS: FERROUS SULFATE 325 MG EC TABLET PO SCH (09:24)
[2019-02-12] MEDS: CALCITRIOL 0.25 MCG CAPSULE PO SCH (09:24)
[2019-02-12] MEDS: SEVELAMER CARBONATE 800 MG TABLET PO SCH ×3 (09:24→18:14)
[2019-02-12] MEDS: POLYETHYLENE GLYCOL 3350 17 GM PACKET PO SCH (09:24)
[2019-02-12] MEDS: SOTALOL HCL 80 MG TABLET PO SCH ×2 (09:25→20:18)
[2019-02-12] MEDS: PANTOPRAZOLE SODIUM 40 MG DR TABLET PO SCH (09:26)
[2019-02-12] MEDS: SIMVASTATIN 20 MG TABLET PO SCH (09:26)
[2019-02-12] MEDS: VITAMIN B COMP/VIT C/FOLIC ACID CAPSULE PO SCH (09:26)
[2019-02-12] MEDS: SERTRALINE HCL 50 MG TABLET PO SCH (09:26)
[2019-02-12] MEDS: APIXABAN 5 MG TABLET PO SCH ×2 (09:27→20:18)
[2019-02-12] MEDS: COLD CREAM, SKIN EMOLLIENT 340 GM JAR TP SCH ×2 (09:27→20:19)
[2019-02-12] MEDS: CHOLECALCIFEROL (VIT D3) 1,000 UNITS TABLET PO SCH (09:27)
[2019-02-12] MEDS: ALLOPURINOL 100 MG TABLET PO SCH (09:27)
[2019-02-12] MEDS ORDERED: MAGNESIUM CITRATE 300 ML ORAL SOLUTION PO PRN (13:30)
[2019-02-12 15:47] VITALS: BP 126/63
[2019-02-12 20:15] VITALS: BP 117/59
[2019-02-12] MEDS: GABAPENTIN 300 MG CAPSULE PO SCH (20:18)
[2019-02-12] MEDS: SENNA 187 MG TABLET PO SCH (20:18)
[2019-02-12] MEDS: CETIRIZINE HCL 10 MG TABLET PO SCH (20:18)
[2019-02-12 23:20] VITALS: BP 117/53
[2019-02-12] MEDS: TEMAZEPAM 7.5 MG CAPSULE PO PRN (23:20)
[2019-02-13 07:50] VITALS: BP 93/54
[2019-02-13] MEDS: APIXABAN 5 MG TABLET PO SCH ×2 (07:52→21:36)
[2019-02-13] MEDS: VITAMIN B COMP/VIT C/FOLIC ACID CAPSULE PO SCH (07:53)
[2019-02-13] MEDS: SERTRALINE HCL 50 MG TABLET PO SCH (07:53)
[2019-02-13] MEDS: SEVELAMER CARBONATE 800 MG TABLET PO SCH ×3 (07:53→17:46)
[2019-02-13] MEDS: CALCITRIOL 0.25 MCG CAPSULE PO SCH (07:54)
[2019-02-13] MEDS: FERROUS SULFATE 325 MG EC TABLET PO SCH (07:54)
[2019-02-13] MEDS: ALLOPURINOL 100 MG TABLET PO SCH (07:54)
[2019-02-13] MEDS: SIMVASTATIN 20 MG TABLET PO SCH (07:54)
[2019-02-13] MEDS: DOCUSATE SODIUM 250 MG CAPSULE PO SCH ×2 (07:54→21:36)
[2019-02-13] MEDS: CHOLECALCIFEROL (VIT D3) 1,000 UNITS TABLET PO SCH (07:54)
[2019-02-13] MEDS: PANTOPRAZOLE SODIUM 40 MG DR TABLET PO SCH (07:54)
[2019-02-13] MEDS: SOTALOL HCL 80 MG TABLET PO SCH ×2 (07:57→21:36)
[2019-02-13] MEDS: COLD CREAM, SKIN EMOLLIENT 340 GM JAR TP SCH ×2 (08:01→21:36)
[2019-02-13] MEDS: LIDOCAINE 5% TRANSDERMAL PATCH TD PRN (09:16)
[2019-02-13] MEDS: HYDROCODONE/ACETAMINOPHEN 5-325 MG TABLET PO PRN ×3 (09:16→23:39)
[2019-02-13] MEDS: POLYETHYLENE GLYCOL 3350 17 GM PACKET PO SCH (12:51)
[2019-02-13 15:05] VITALS: BP 137/57
[2019-02-13 21:26] VITALS: BP 136/74
[2019-02-13] MEDS: SENNA 187 MG TABLET PO SCH (21:36)
[2019-02-13] MEDS: GABAPENTIN 300 MG CAPSULE PO SCH (21:36)
[2019-02-13] MEDS: CETIRIZINE HCL 10 MG TABLET PO SCH (21:36)
[2019-02-13 23:39] VITALS: BP 110/63
[2019-02-13] MEDS: TEMAZEPAM 7.5 MG CAPSULE PO PRN (23:39)
[2019-02-14 08:30] VITALS: BP 102/61
[2019-02-14] MEDS: SEVELAMER CARBONATE 800 MG TABLET PO SCH ×2 (08:36→12:35)
[2019-02-14] MEDS: FERROUS SULFATE 325 MG EC TABLET PO SCH (08:36)
[2019-02-14] MEDS: SOTALOL HCL 80 MG TABLET PO SCH ×2 (09:00→20:26)
[2019-02-14] MEDS: HYDROCODONE/ACETAMINOPHEN 5-325 MG TABLET PO PRN ×3 (09:15→23:37)
[2019-02-14] MEDS: CHOLECALCIFEROL (VIT D3) 1,000 UNITS TABLET PO SCH (09:28)
[2019-02-14] MEDS: ALLOPURINOL 100 MG TABLET PO SCH (09:28)
[2019-02-14] MEDS: APIXABAN 5 MG TABLET PO SCH ×2 (09:28→20:26)
[2019-02-14] MEDS: CALCITRIOL 0.25 MCG CAPSULE PO SCH (09:28)
[2019-02-14] MEDS: PANTOPRAZOLE SODIUM 40 MG DR TABLET PO SCH (09:28)
[2019-02-14] MEDS: DOCUSATE SODIUM 250 MG CAPSULE PO SCH ×2 (09:28→20:26)
[2019-02-14] MEDS: VITAMIN B COMP/VIT C/FOLIC ACID CAPSULE PO SCH (09:28)
[2019-02-14] MEDS: SERTRALINE HCL 50 MG TABLET PO SCH (09:29)
[2019-02-14] MEDS: SIMVASTATIN 20 MG TABLET PO SCH (09:29)
[2019-02-14] MEDS: COLD CREAM, SKIN EMOLLIENT 340 GM JAR TP SCH ×2 (09:30→20:29)
[2019-02-14] MEDS: POLYETHYLENE GLYCOL 3350 17 GM PACKET PO SCH (09:31)
[2019-02-14 15:32] VITALS: BP 107/60
[2019-02-14] MEDS: CETIRIZINE HCL 10 MG TABLET PO SCH (20:26)
[2019-02-14] MEDS: GABAPENTIN 300 MG CAPSULE PO SCH (20:26)
[2019-02-14] MEDS: SENNA 187 MG TABLET PO SCH (20:26)
[2019-02-14] MEDS: TEMAZEPAM 7.5 MG CAPSULE PO PRN (23:36)
[2019-02-14 23:37] VITALS: BP 96/56
[2019-02-15 08:00] VITALS: BP 100/60
[2019-02-15] MEDS: CHOLECALCIFEROL (VIT D3) 1,000 UNITS TABLET PO SCH (08:11)
[2019-02-15] MEDS: ALLOPURINOL 100 MG TABLET PO SCH (08:11)
[2019-02-15] MEDS: SIMVASTATIN 20 MG TABLET PO SCH (08:11)
[2019-02-15] MEDS: VITAMIN B COMP/VIT C/FOLIC ACID CAPSULE PO SCH (08:11)
[2019-02-15] MEDS: PANTOPRAZOLE SODIUM 40 MG DR TABLET PO SCH (08:11)
[2019-02-15] MEDS: APIXABAN 5 MG TABLET PO SCH ×2 (08:11→19:39)
[2019-02-15] MEDS: DOCUSATE SODIUM 250 MG CAPSULE PO SCH ×2 (08:11→19:39)
[2019-02-15] MEDS: CALCITRIOL 0.25 MCG CAPSULE PO SCH (08:11)
[2019-02-15] MEDS: SERTRALINE HCL 50 MG TABLET PO SCH (08:12)
[2019-02-15] MEDS: FERROUS SULFATE 325 MG EC TABLET PO SCH (08:12)
[2019-02-15] MEDS: POLYETHYLENE GLYCOL 3350 17 GM PACKET PO SCH (08:12)
[2019-02-15] MEDS: SOTALOL HCL 80 MG TABLET PO SCH ×2 (08:13→19:39)
[2019-02-15] MEDS: COLD CREAM, SKIN EMOLLIENT 340 GM JAR TP SCH ×2 (08:18→19:44)
[2019-02-15] MEDS: HYDROCODONE/ACETAMINOPHEN 5-325 MG TABLET PO PRN ×3 (13:06→23:54)
[2019-02-15 16:40] VITALS: BP 139/80
[2019-02-15] MEDS: SENNA 187 MG TABLET PO SCH (19:39)
[2019-02-15] MEDS: GABAPENTIN 300 MG CAPSULE PO SCH (19:39)
[2019-02-15] MEDS: CETIRIZINE HCL 10 MG TABLET PO SCH (19:39)
[2019-02-15 19:41] VITALS: BP 105/68
[2019-02-15] MEDS: LIDOCAINE 5% TRANSDERMAL PATCH TD PRN (19:41)
[2019-02-15 23:53] VITALS: BP 105/67
[2019-02-15] MEDS: TEMAZEPAM 7.5 MG CAPSULE PO PRN (23:53)
[2019-02-16 06:56] LABS: CALCIUM, TOTAL 9.3 mg/dL (8.8-10.5); CREATININE 1.49 mg/dL (0.60-1.30); MAGNESIUM 1.9 mg/dL (1.80-2.40); PHOSPHORUS 4.4 mg/dL (2.5-4.9); POTASSIUM 4.4 mmol/L (3.5-5.1)
[2019-02-16 07:00] VITALS: BP 99/43
[2019-02-16] MEDS: HYDROCODONE/ACETAMINOPHEN 5-325 MG TABLET PO PRN ×4 (07:35→23:15)
[2019-02-16] MEDS: FERROUS SULFATE 325 MG EC TABLET PO SCH (07:35)
[2019-02-16] MEDS: DOCUSATE SODIUM 250 MG CAPSULE PO SCH ×2 (08:20→20:07)
[2019-02-16] MEDS: VITAMIN B COMP/VIT C/FOLIC ACID CAPSULE PO SCH (08:20)
[2019-02-16] MEDS: CALCITRIOL 0.25 MCG CAPSULE PO SCH (08:20)
[2019-02-16] MEDS: PANTOPRAZOLE SODIUM 40 MG DR TABLET PO SCH (08:21)
[2019-02-16] MEDS: SIMVASTATIN 20 MG TABLET PO SCH (08:21)
[2019-02-16] MEDS: CHOLECALCIFEROL (VIT D3) 1,000 UNITS TABLET PO SCH (08:21)
[2019-02-16] MEDS: APIXABAN 5 MG TABLET PO SCH ×2 (08:21→20:08)
[2019-02-16] MEDS: SERTRALINE HCL 50 MG TABLET PO SCH (08:21)
[2019-02-16] MEDS: ALLOPURINOL 100 MG TABLET PO SCH (08:22)
[2019-02-16] MEDS: COLD CREAM, SKIN EMOLLIENT 340 GM JAR TP SCH ×2 (08:22→20:12)
[2019-02-16] MEDS: POLYETHYLENE GLYCOL 3350 17 GM PACKET PO SCH (08:46)
[2019-02-16] MEDS: SOTALOL HCL 80 MG TABLET PO SCH ×2 (08:47→20:07)
[2019-02-16 15:55] VITALS: BP 117/52
[2019-02-16] MEDS: SENNA 187 MG TABLET PO SCH (20:06)
[2019-02-16] MEDS: GABAPENTIN 300 MG CAPSULE PO SCH (20:07)
[2019-02-16] MEDS: CETIRIZINE HCL 10 MG TABLET PO SCH (20:08)
[2019-02-16 23:15] VITALS: BP 123/57
[2019-02-16] MEDS: TEMAZEPAM 7.5 MG CAPSULE PO PRN (23:15)
[2019-02-17 07:00] VITALS: BP 98/49
[2019-02-17] MEDS: POLYETHYLENE GLYCOL 3350 17 GM PACKET PO SCH (08:01)
[2019-02-17] MEDS: LIDOCAINE 5% TRANSDERMAL PATCH TD PRN (08:01)
[2019-02-17] MEDS: SIMVASTATIN 20 MG TABLET PO SCH (08:01)
[2019-02-17] MEDS: CHOLECALCIFEROL (VIT D3) 1,000 UNITS TABLET PO SCH (08:02)
[2019-02-17] MEDS: SERTRALINE HCL 50 MG TABLET PO SCH (08:02)
[2019-02-17] MEDS: APIXABAN 5 MG TABLET PO SCH ×2 (08:02→21:06)
[2019-02-17] MEDS: HYDROCODONE/ACETAMINOPHEN 5-325 MG TABLET PO PRN ×4 (08:02→23:29)
[2019-02-17] MEDS: ALLOPURINOL 100 MG TABLET PO SCH (08:02)
[2019-02-17] MEDS: CALCITRIOL 0.25 MCG CAPSULE PO SCH (08:03)
[2019-02-17] MEDS: FERROUS SULFATE 325 MG EC TABLET PO SCH (08:03)
[2019-02-17] MEDS: PANTOPRAZOLE SODIUM 40 MG DR TABLET PO SCH (08:03)
[2019-02-17] MEDS: DOCUSATE SODIUM 250 MG CAPSULE PO SCH ×2 (08:03→21:06)
[2019-02-17] MEDS: VITAMIN B COMP/VIT C/FOLIC ACID CAPSULE PO SCH (08:03)
[2019-02-17] MEDS: COLD CREAM, SKIN EMOLLIENT 340 GM JAR TP SCH ×2 (08:03→21:07)
[2019-02-17] MEDS: SOTALOL HCL 80 MG TABLET PO SCH ×2 (08:47→21:00)
[2019-02-17 15:05] VITALS: BP 109/72
[2019-02-17 21:00] VITALS: BP 122/64
[2019-02-17] MEDS: SENNA 187 MG TABLET PO SCH (21:06)
[2019-02-17] MEDS: CETIRIZINE HCL 10 MG TABLET PO SCH (21:07)
[2019-02-17] MEDS: GABAPENTIN 300 MG CAPSULE PO SCH (21:07)
[2019-02-17 23:29] VITALS: BP 119/72
[2019-02-17] MEDS: TEMAZEPAM 7.5 MG CAPSULE PO PRN (23:29)
[2019-02-18 06:49] LABS: CALCIUM, TOTAL 9.3 mg/dL (8.8-10.5); CREATININE 1.83 mg/dL (0.60-1.30); MAGNESIUM 2.2 mg/dL (1.80-2.40); PHOSPHORUS 5.7 mg/dL (2.5-4.9); POTASSIUM 4.1 mmol/L (3.5-5.1)
[2019-02-18 07:44] VITALS: BP 146/90
[2019-02-18] MEDS: HYDROCODONE/ACETAMINOPHEN 5-325 MG TABLET PO PRN (07:51)
[2019-02-18] MEDS: ALLOPURINOL 100 MG TABLET PO SCH (07:52)
[2019-02-18] MEDS: CHOLECALCIFEROL (VIT D3) 1,000 UNITS TABLET PO SCH (07:52)
[2019-02-18] MEDS: FERROUS SULFATE 325 MG EC TABLET PO SCH (07:53)
[2019-02-18] MEDS: DOCUSATE SODIUM 250 MG CAPSULE PO SCH ×2 (07:53→21:08)
[2019-02-18] MEDS: CALCITRIOL 0.25 MCG CAPSULE PO SCH (07:53)
[2019-02-18] MEDS: PANTOPRAZOLE SODIUM 40 MG DR TABLET PO SCH (07:53)
[2019-02-18] MEDS: VITAMIN B COMP/VIT C/FOLIC ACID CAPSULE PO SCH (07:53)
[2019-02-18] MEDS: SIMVASTATIN 20 MG TABLET PO SCH (07:53)
[2019-02-18] MEDS: APIXABAN 5 MG TABLET PO SCH ×2 (07:53→21:08)
[2019-02-18] MEDS: SERTRALINE HCL 50 MG TABLET PO SCH (07:54)
[2019-02-18] MEDS: SOTALOL HCL 80 MG TABLET PO SCH ×2 (07:54→21:08)
[2019-02-18] MEDS: COLD CREAM, SKIN EMOLLIENT 340 GM JAR TP SCH ×2 (07:55→21:08)
[2019-02-18] MEDS: POLYETHYLENE GLYCOL 3350 17 GM PACKET PO SCH (07:55)
[2019-02-18 15:00] VITALS: BP 112/80
[2019-02-18 21:05] VITALS: BP 114/82
[2019-02-18] MEDS: SENNA 187 MG TABLET PO SCH (21:08)
[2019-02-18] MEDS: CETIRIZINE HCL 10 MG TABLET PO SCH (21:08)
[2019-02-18] MEDS: GABAPENTIN 300 MG CAPSULE PO SCH (21:08)
[2019-02-18 23:55] VITALS: BP 106/68
[2019-02-18] MEDS: TraMADol HCL 50 MG TABLET PO PRN (23:55)
[2019-02-18] MEDS: TEMAZEPAM 7.5 MG CAPSULE PO PRN (23:55)
[2019-02-19] MEDS: APIXABAN 5 MG TABLET PO SCH ×2 (07:38→21:10)
[2019-02-19] MEDS: SERTRALINE HCL 50 MG TABLET PO SCH (07:38)
[2019-02-19] MEDS: DOCUSATE SODIUM 250 MG CAPSULE PO SCH ×2 (07:38→21:10)
[2019-02-19] MEDS: FERROUS SULFATE 325 MG EC TABLET PO SCH (07:38)
[2019-02-19] MEDS: ALLOPURINOL 100 MG TABLET PO SCH (07:38)
[2019-02-19] MEDS: POLYETHYLENE GLYCOL 3350 17 GM PACKET PO SCH (07:38)
[2019-02-19] MEDS: VITAMIN B COMP/VIT C/FOLIC ACID CAPSULE PO SCH (07:38)
[2019-02-19] MEDS: CHOLECALCIFEROL (VIT D3) 1,000 UNITS TABLET PO SCH (07:38)
[2019-02-19] MEDS: SIMVASTATIN 20 MG TABLET PO SCH (07:39)
[2019-02-19] MEDS: CALCITRIOL 0.25 MCG CAPSULE PO SCH (07:39)
[2019-02-19] MEDS: SOTALOL HCL 80 MG TABLET PO SCH ×2 (07:39→21:10)
[2019-02-19] MEDS: PANTOPRAZOLE SODIUM 40 MG DR TABLET PO SCH (07:39)
[2019-02-19] MEDS: COLD CREAM, SKIN EMOLLIENT 340 GM JAR TP SCH ×2 (07:41→21:10)
[2019-02-19 07:42] VITALS: BP 129/59
[2019-02-19] MEDS: TraMADol HCL 50 MG TABLET PO PRN (13:04)
[2019-02-19 16:20] VITALS: BP 110/64
[2019-02-19 21:07] VITALS: BP 124/75
[2019-02-19] MEDS: GABAPENTIN 300 MG CAPSULE PO SCH (21:10)
[2019-02-19] MEDS: SENNA 187 MG TABLET PO SCH (21:10)
[2019-02-19] MEDS: CETIRIZINE HCL 10 MG TABLET PO SCH (21:10)
[2019-02-20 00:10] VITALS: BP 122/73
[2019-02-20] MEDS: TraMADol HCL 50 MG TABLET PO PRN ×4 (00:10→23:29)
[2019-02-20] MEDS: TEMAZEPAM 7.5 MG CAPSULE PO PRN ×2 (00:10→23:28)
[2019-02-20] MEDS: FERROUS SULFATE 325 MG EC TABLET PO SCH (07:44)
[2019-02-20 07:49] VITALS: BP 114/71
[2019-02-20] MEDS: SIMVASTATIN 20 MG TABLET PO SCH (08:16)
[2019-02-20] MEDS: DOCUSATE SODIUM 250 MG CAPSULE PO SCH ×2 (08:16→20:28)
[2019-02-20] MEDS: VITAMIN B COMP/VIT C/FOLIC ACID CAPSULE PO SCH (08:16)
[2019-02-20] MEDS: SOTALOL HCL 80 MG TABLET PO SCH ×2 (08:17→20:28)
[2019-02-20] MEDS: ALLOPURINOL 100 MG TABLET PO SCH (08:18)
[2019-02-20] MEDS: CHOLECALCIFEROL (VIT D3) 1,000 UNITS TABLET PO SCH (08:18)
[2019-02-20] MEDS: PANTOPRAZOLE SODIUM 40 MG DR TABLET PO SCH (08:18)
[2019-02-20] MEDS: APIXABAN 5 MG TABLET PO SCH ×2 (08:18→20:28)
[2019-02-20] MEDS: SERTRALINE HCL 50 MG TABLET PO SCH (08:18)
[2019-02-20] MEDS: CALCITRIOL 0.25 MCG CAPSULE PO SCH (08:24)
[2019-02-20] MEDS: COLD CREAM, SKIN EMOLLIENT 340 GM JAR TP SCH ×2 (08:25→20:29)
[2019-02-20] MEDS: POLYETHYLENE GLYCOL 3350 17 GM PACKET PO SCH (09:00)
[2019-02-20 16:18] VITALS: BP 110/76
[2019-02-20 20:00] VITALS: BP 118/74
[2019-02-20] MEDS: CETIRIZINE HCL 10 MG TABLET PO SCH (20:27)
[2019-02-20] MEDS: GABAPENTIN 300 MG CAPSULE PO SCH (20:28)
[2019-02-20] MEDS: SENNA 187 MG TABLET PO SCH (20:29)
[2019-02-20 23:29] VITALS: BP 127/74
[2019-02-21 06:21] LABS: BASOPHILS % (AUTO) 0.9 % (0.0-2.0); EOSINOPHILS % (AUTO) 4.9 % (1.0-6.0); HEMATOCRIT 31.5 % (36-46); HEMOGLOBIN 10.6 g/dL (12.0-16.0); LYMPHOCYTES # (AUTO) 1.3 K/uL (1.0-4.8); LYMPHOCYTES % (AUTO) 41.4 % (22.0-44.0); MEAN CORPUSCULAR HEMOGLOBIN 32.7 pg (26.0-34.0); MEAN CORPUSCULAR HGB CONC 33.6 G/dL (31.0-37.0); MEAN CORPUSCULAR VOLUME 97 fL (80-100); MONOCYTES # (AUTO) 0.1 K/uL (0.1-1.0); MONOCYTES % (AUTO) 4.8 % (2.0-9.0); NEUTROPHILS # (AUTO) 1.5 K/uL (1.8-7.7); PLATELET COUNT (AUTO) 114 K/uL (150-450); RED BLOOD CELL COUNT(AUTO) 3.24 MIL/uL (4.00-5.20); RED CELL DISTRIBUTION WIDTH 14.9 % (11.5-14.5)
[2019-02-21 06:42] LABS: CALCIUM, TOTAL 9.4 mg/dL (8.8-10.5); CREATININE 1.65 mg/dL (0.60-1.30); MAGNESIUM 1.9 mg/dL (1.80-2.40); PHOSPHORUS 5.1 mg/dL (2.5-4.9); POTASSIUM 4.2 mmol/L (3.5-5.1)
[2019-02-21 07:48] VITALS: BP 99/65
[2019-02-21] MEDS: FERROUS SULFATE 325 MG EC TABLET PO SCH (08:26)
[2019-02-21] MEDS: TraMADol HCL 50 MG TABLET PO PRN ×2 (08:38→23:23)
[2019-02-21] MEDS: CALCITRIOL 0.25 MCG CAPSULE PO SCH (08:39)
[2019-02-21] MEDS: POLYETHYLENE GLYCOL 3350 17 GM PACKET PO SCH (08:39)
[2019-02-21] MEDS: PANTOPRAZOLE SODIUM 40 MG DR TABLET PO SCH (08:40)
[2019-02-21] MEDS: ALLOPURINOL 100 MG TABLET PO SCH (08:40)
[2019-02-21] MEDS: APIXABAN 5 MG TABLET PO SCH ×2 (08:40→20:09)
[2019-02-21] MEDS: SIMVASTATIN 20 MG TABLET PO SCH (08:40)
[2019-02-21] MEDS: VITAMIN B COMP/VIT C/FOLIC ACID CAPSULE PO SCH (08:40)
[2019-02-21] MEDS: CHOLECALCIFEROL (VIT D3) 1,000 UNITS TABLET PO SCH (08:40)
[2019-02-21] MEDS: SERTRALINE HCL 50 MG TABLET PO SCH (08:40)
[2019-02-21] MEDS: DOCUSATE SODIUM 250 MG CAPSULE PO SCH ×2 (08:40→20:09)
[2019-02-21] MEDS: SOTALOL HCL 80 MG TABLET PO SCH ×4 (08:41→20:10)
[2019-02-21] MEDS: COLD CREAM, SKIN EMOLLIENT 340 GM JAR TP SCH ×2 (08:43→20:14)
[2019-02-21 10:30] VITALS: BP 100/57
[2019-02-21 15:11] VITALS: BP 114/65
[2019-02-21 20:08] VITALS: BP 15/58
[2019-02-21] MEDS: GABAPENTIN 300 MG CAPSULE PO SCH (20:09)
[2019-02-21] MEDS: SENNA 187 MG TABLET PO SCH (20:09)
[2019-02-21] MEDS: CETIRIZINE HCL 10 MG TABLET PO SCH (20:10)
[2019-02-21 23:23] VITALS: BP 111/55
[2019-02-21] MEDS: TEMAZEPAM 7.5 MG CAPSULE PO PRN (23:23)
[2019-02-22 07:20] VITALS: BP 94/50
[2019-02-22 08:13] VITALS: BP 119/70
[2019-02-22] MEDS: TraMADol HCL 50 MG TABLET PO PRN ×2 (08:13→22:39)
[2019-02-22] MEDS: SIMVASTATIN 20 MG TABLET PO SCH (08:14)
[2019-02-22] MEDS: FERROUS SULFATE 325 MG EC TABLET PO SCH (08:14)
[2019-02-22] MEDS: VITAMIN B COMP/VIT C/FOLIC ACID CAPSULE PO SCH (08:14)
[2019-02-22] MEDS: POLYETHYLENE GLYCOL 3350 17 GM PACKET PO SCH (08:14)
[2019-02-22] MEDS: DOCUSATE SODIUM 250 MG CAPSULE PO SCH ×2 (08:14→19:59)
[2019-02-22] MEDS: PANTOPRAZOLE SODIUM 40 MG DR TABLET PO SCH (08:14)
[2019-02-22] MEDS: APIXABAN 5 MG TABLET PO SCH ×2 (08:14→19:59)
[2019-02-22] MEDS: ALLOPURINOL 100 MG TABLET PO SCH (08:14)
[2019-02-22] MEDS: CALCITRIOL 0.25 MCG CAPSULE PO SCH (08:14)
[2019-02-22] MEDS: CHOLECALCIFEROL (VIT D3) 1,000 UNITS TABLET PO SCH (08:15)
[2019-02-22] MEDS: SOTALOL HCL 80 MG TABLET PO SCH (08:15)
[2019-02-22] MEDS: SERTRALINE HCL 50 MG TABLET PO SCH (08:15)
[2019-02-22] MEDS: COLD CREAM, SKIN EMOLLIENT 340 GM JAR TP SCH ×3 (08:17→20:04)
[2019-02-22] MEDS: ACETAMINOPHEN 325 MG TABLET PO PRN ×2 (09:00→17:49)
[2019-02-22 18:21] VITALS: BP 114/60
[2019-02-22 19:58] VITALS: BP 111/48
[2019-02-22] MEDS: CETIRIZINE HCL 10 MG TABLET PO SCH (19:59)
[2019-02-22] MEDS: SENNA 187 MG TABLET PO SCH (19:59)
[2019-02-22] MEDS: GABAPENTIN 300 MG CAPSULE PO SCH (20:00)
[2019-02-22 22:39] VITALS: BP 133/85
[2019-02-22] MEDS: TEMAZEPAM 7.5 MG CAPSULE PO PRN (22:39)
[2019-02-23] MEDS: FERROUS SULFATE 325 MG EC TABLET PO SCH (07:23)
[2019-02-23] MEDS: TraMADol HCL 50 MG TABLET PO PRN ×3 (07:23→23:13)
[2019-02-23 07:30] VITALS: BP 111/75
[2019-02-23] MEDS: APIXABAN 5 MG TABLET PO SCH ×2 (08:03→19:52)
[2019-02-23] MEDS: PANTOPRAZOLE SODIUM 40 MG DR TABLET PO SCH (08:03)
[2019-02-23] MEDS: DOCUSATE SODIUM 250 MG CAPSULE PO SCH ×2 (08:03→19:52)
[2019-02-23] MEDS: ALLOPURINOL 100 MG TABLET PO SCH (08:03)
[2019-02-23] MEDS: CALCITRIOL 0.25 MCG CAPSULE PO SCH (08:03)
[2019-02-23] MEDS: VITAMIN B COMP/VIT C/FOLIC ACID CAPSULE PO SCH (08:03)
[2019-02-23] MEDS: SIMVASTATIN 20 MG TABLET PO SCH (08:03)
[2019-02-23] MEDS: SOTALOL HCL 80 MG TABLET PO SCH (08:04)
[2019-02-23] MEDS: SERTRALINE HCL 50 MG TABLET PO SCH (08:04)
[2019-02-23] MEDS: CHOLECALCIFEROL (VIT D3) 1,000 UNITS TABLET PO SCH (08:05)
[2019-02-23] MEDS: COLD CREAM, SKIN EMOLLIENT 340 GM JAR TP SCH ×2 (08:05→19:54)
[2019-02-23 08:32] LABS: CALCIUM, TOTAL 9.4 mg/dL (8.8-10.5); CREATININE 1.87 mg/dL (0.60-1.30); POTASSIUM 3.7 mmol/L (3.5-5.1)
[2019-02-23] MEDS: POLYETHYLENE GLYCOL 3350 17 GM PACKET PO SCH (09:00)
[2019-02-23 16:00] VITALS: BP 118/73
[2019-02-23] MEDS: SENNA 187 MG TABLET PO SCH (19:52)
[2019-02-23] MEDS: GABAPENTIN 300 MG CAPSULE PO SCH (19:52)
[2019-02-23] MEDS: CETIRIZINE HCL 10 MG TABLET PO SCH (19:52)
[2019-02-23 19:55] VITALS: BP 124/62
[2019-02-23 23:10] VITALS: BP 107/65
[2019-02-23] MEDS: TEMAZEPAM 7.5 MG CAPSULE PO PRN (23:14)
[2019-02-24 07:50] VITALS: BP 104/70
[2019-02-24] MEDS: SIMVASTATIN 20 MG TABLET PO SCH (08:05)
[2019-02-24] MEDS: TraMADol HCL 50 MG TABLET PO PRN ×3 (08:05→23:21)
[2019-02-24] MEDS: FERROUS SULFATE 325 MG EC TABLET PO SCH (08:06)
[2019-02-24] MEDS: APIXABAN 5 MG TABLET PO SCH ×2 (08:06→20:17)
[2019-02-24] MEDS: PANTOPRAZOLE SODIUM 40 MG DR TABLET PO SCH (08:06)
[2019-02-24] MEDS: CALCITRIOL 0.25 MCG CAPSULE PO SCH (08:06)
[2019-02-24] MEDS: CHOLECALCIFEROL (VIT D3) 1,000 UNITS TABLET PO SCH (08:06)
[2019-02-24] MEDS: ALLOPURINOL 100 MG TABLET PO SCH (08:07)
[2019-02-24] MEDS: VITAMIN B COMP/VIT C/FOLIC ACID CAPSULE PO SCH (08:07)
[2019-02-24] MEDS: SOTALOL HCL 80 MG TABLET PO SCH (08:07)
[2019-02-24] MEDS: COLD CREAM, SKIN EMOLLIENT 340 GM JAR TP SCH ×2 (08:07→20:16)
[2019-02-24] MEDS: SERTRALINE HCL 50 MG TABLET PO SCH (08:07)
[2019-02-24] MEDS: DOCUSATE SODIUM 250 MG CAPSULE PO SCH ×2 (08:07→20:17)
[2019-02-24] MEDS: POLYETHYLENE GLYCOL 3350 17 GM PACKET PO SCH (09:00)
[2019-02-24] MEDS: SEVELAMER CARBONATE 800 MG TABLET PO SCH ×2 (13:21→17:43)
[2019-02-24 15:41] VITALS: BP 122/82
[2019-02-24 20:14] VITALS: BP 105/71
[2019-02-24] MEDS: GABAPENTIN 300 MG CAPSULE PO SCH (20:17)
[2019-02-24] MEDS: CETIRIZINE HCL 10 MG TABLET PO SCH (20:17)
[2019-02-24] MEDS: SENNA 187 MG TABLET PO SCH (20:17)
[2019-02-24 23:21] VITALS: BP 119/75
[2019-02-24] MEDS: TEMAZEPAM 7.5 MG CAPSULE PO PRN (23:21)
[2019-02-25 08:00] VITALS: BP 164/79
[2019-02-25] MEDS: HYDROCODONE/ACETAMINOPHEN 5-325 MG TABLET PO PRN (08:07)
[2019-02-25] MEDS: APIXABAN 5 MG TABLET PO SCH (08:07)
[2019-02-25] MEDS: FERROUS SULFATE 325 MG EC TABLET PO SCH (08:08)
[2019-02-25] MEDS: SEVELAMER CARBONATE 800 MG TABLET PO SCH (08:08)
[2019-02-25] MEDS: DOCUSATE SODIUM 250 MG CAPSULE PO SCH (08:08)
[2019-02-25] MEDS: SIMVASTATIN 20 MG TABLET PO SCH (08:08)
[2019-02-25] MEDS: SERTRALINE HCL 50 MG TABLET PO SCH (08:08)
[2019-02-25] MEDS: CHOLECALCIFEROL (VIT D3) 1,000 UNITS TABLET PO SCH (08:08)
[2019-02-25] MEDS: CALCITRIOL 0.25 MCG CAPSULE PO SCH (08:08)
[2019-02-25] MEDS: VITAMIN B COMP/VIT C/FOLIC ACID CAPSULE PO SCH (08:08)
[2019-02-25] MEDS: ALLOPURINOL 100 MG TABLET PO SCH (08:08)
[2019-02-25] MEDS: PANTOPRAZOLE SODIUM 40 MG DR TABLET PO SCH (08:08)
[2019-02-25] MEDS: SOTALOL HCL 80 MG TABLET PO SCH (08:08)
[2019-02-25] MEDS: COLD CREAM, SKIN EMOLLIENT 340 GM JAR TP SCH (08:09)
[2019-02-25] MEDS: POLYETHYLENE GLYCOL 3350 17 GM PACKET PO SCH (08:09)
[2019-02-25 08:52] VITALS: BP 114/86
[2019-02-25] MEDS ORDERED: SOTALOL HCL 80 MG TABLET PO SCH (09:00)
[2019-02-25] MEDS ORDERED: TRAM50TA4 PO (09:16)
== END 2019-02-25 11:30 | disposition home or self-care (01) | DRG 56 ==
LOC: 2WR 11:40
PROVIDERS: ATTEND Physical Medicine & Rehabilitation
PROC: 0DB68ZX Excision of Stomach, Via Natural or Artificial Opening Endoscopic, Diagnostic (ICD-10-PCS; principal; 2019-01-16 10:15)
DX: I69.351 Hemiplegia and hemiparesis following cerebral infarction affecting right dominant side (principal); I63.9 Cerebral infarction, unspecified; K28.4 Chronic or unspecified gastrojejunal ulcer with hemorrhage; I50.31 Acute diastolic (congestive) heart failure; I13.0 Hypertensive heart and chronic kidney disease with heart failure and stage 1 through stage 4 chronic kidney disease, or unspecified chronic kidney disease; I48.92 Unspecified atrial flutter; N39.0 Urinary tract infection, site not specified; D61.818 Other pancytopenia; E46 Unspecified protein-calorie malnutrition; I82.621 Acute embolism and thrombosis of deep veins of right upper extremity; Z68.41 Body mass index [BMI] 40.0-44.9, adult; B96.20 Unspecified Escherichia coli [E. coli] as the cause of diseases classified elsewhere; D63.1 Anemia in chronic kidney disease; E11.22 Type 2 diabetes mellitus with diabetic chronic kidney disease; E66.9 Obesity, unspecified; E78.5 Hyperlipidemia, unspecified; E83.39 Other disorders of phosphorus metabolism; E87.5 Hyperkalemia; G47.00 Insomnia, unspecified; I25.10 Atherosclerotic heart disease of native coronary artery without angina pectoris; I48.0 Paroxysmal atrial fibrillation; K59.00 Constipation, unspecified; M10.9 Gout, unspecified; D50.0 Iron deficiency anemia secondary to blood loss (chronic); E55.9 Vitamin D deficiency, unspecified; F32.9 Major depressive disorder, single episode, unspecified; I48.2 Chronic atrial fibrillation; J45.909 Unspecified asthma, uncomplicated; K29.50 Unspecified chronic gastritis without bleeding; K21.9 Gastro-esophageal reflux disease without esophagitis; M19.90 Unspecified osteoarthritis, unspecified site; R47.1 Dysarthria and anarthria; F43.20 Adjustment disorder, unspecified; F43.23 Adjustment disorder with mixed anxiety and depressed mood; N18.3 Chronic kidney disease, stage 3 (moderate); R13.12 Dysphagia, oropharyngeal phase; Z79.899 Other long term (current) drug therapy; Z85.42 Personal history of malignant neoplasm of other parts of uterus; Z22.322 Carrier or suspected carrier of Methicillin resistant Staphylococcus aureus; Z79.01 Long term (current) use of anticoagulants; Z79.84 Long term (current) use of oral hypoglycemic drugs; Z87.440 Personal history of urinary (tract) infections; Z90.710 Acquired absence of both cervix and uterus; Z98.84 Bariatric surgery status
CPT/HCPCS: 36245; 36569; 76937; 78582; 82271; 82728; 83540; 83550; 83735; 84100; 84550; 85379; 85651; 86140; 86677; 87081; 88305; 88313; 92507; 92508; 92523; 93005; 93970; 94640; 97110; 97112; 97116; 97150; 97168; 97530; 97535; 99366; A9539; A9540; J0885; J1160; J2704; J2916; J3301; J3490; J7030; J7042; J7050

== ENCOUNTER → 2019-03-26 | Outpatient (CLI) | payer OTHER ==
[~2019-03-26] MED LIST changes: -APIX2.5T PO; +APIX5TAB PO; -CALC1TAB15 PO; +FERR-89 PO; -FLUT1DIS3 IH; +FOLI1CAP2 PO; -FURO20 PO; +GABA-531 PO; -HYDR-3965 PO; -MAGN400T40 PO; -METO25 PO; -MULT1TAB7 PO; +PANT40TA25 PO; +POLY17PO PO; -SENN8.6T90 PO; +SERT50TA12 PO; +SEVEC800 PO; -TEMA30 PO; +TEMA7.5C17 PO; +TRAM50TA4 PO
[2019-03-26 12:32] LABS: BASOPHILS % (AUTO) 0.8 % (0.0-2.0); EOSINOPHILS % (AUTO) 8.7 % (1.0-6.0); HEMOGLOBIN 11.7 g/dL (12.0-16.0); LYMPHOCYTES # (AUTO) 0.8 K/uL (1.0-4.8); MEAN CORPUSCULAR HEMOGLOBIN 32.4 pg (26.0-34.0); MEAN CORPUSCULAR HGB CONC 33.3 G/dL (31.0-37.0); MEAN CORPUSCULAR VOLUME 97 fL (80-100); MONOCYTES # (AUTO) 0.2 K/uL (0.1-1.0); MONOCYTES % (AUTO) 4.9 % (2.0-9.0); NEUTROPHILS # (AUTO) 1.8 K/uL (1.8-7.7); NEUTROPHILS % (AUTO) 58.6 % (40.0-70.0); PLATELET COUNT (AUTO) 168 K/uL (150-450); RED CELL DISTRIBUTION WIDTH 15.1 % (11.5-14.5)
[2019-03-26 12:58] LABS: ALBUMIN 3.2 g/dL (3.4-5.0); BILIRUBIN,TOTAL 0.4 mg/dL (0.1-1.0); CALCIUM, TOTAL 9.3 mg/dL (8.8-10.5); CHOL/HDL RATIO 1.8 (3.9-5.7); CREATININE 2.34 mg/dL (0.60-1.30); FREE T4 (FREE THYROXINE) 1.13 ng/dL (0.76-1.46); MAGNESIUM 2.1 mg/dL (1.80-2.40); POTASSIUM 4.2 mmol/L (3.5-5.1); THYROID STIMULATING HORMONE 2.46 uIU/mL (0.36-3.74); TOTAL PROTEIN, SERUM 8.4 g/dL (6.4-8.2)
[2019-03-26 13:39] LABS: HEMOGLOBIN A1C 5.7 % (4.5-6.2)
== END | disposition home or self-care (01) ==
LOC: LABPV 10:34
PROVIDERS: ATTEND Internal Medicine Cardiovascular Disease
DX: I11.0 Hypertensive heart disease with heart failure (principal); I50.9 Heart failure, unspecified; E11.9 Type 2 diabetes mellitus without complications; E55.9 Vitamin D deficiency, unspecified
CPT/HCPCS: 82306; 83036; 83735; 84439; 84443

== ENCOUNTER → 2019-04-28 | Outpatient (CLI) | payer MEDICARE ==
[2019-04-28 09:43] LABS: CREATININE 2.32 mg/dL (0.60-1.30)
== END | disposition home or self-care (01) ==
LOC: LABPV 07:42
PROVIDERS: ATTEND Internal Medicine Cardiovascular Disease
DX: E55.9 Vitamin D deficiency, unspecified (principal); E11.9 Type 2 diabetes mellitus without complications; I11.0 Hypertensive heart disease with heart failure; I50.9 Heart failure, unspecified; D56.5 Hemoglobin E-beta thalassemia

== ENCOUNTER → 2019-05-04 | Outpatient (CLI) | payer MEDICARE | END | disposition home or self-care (01) | LOC: RADPV 14:12 | PROVIDERS: ATTEND Physical Medicine & Rehabilitation | DX: I11.0 Hypertensive heart disease with heart failure (principal); I50.9 Heart failure, unspecified; R91.8 Other nonspecific abnormal finding of lung field ==

== ENCOUNTER → 2019-05-19 | Outpatient (CLI) | payer MEDICARE ==
[2019-05-19 10:13] LABS: CALCIUM, TOTAL 9.3 mg/dL (8.8-10.5); CREATININE 1.71 mg/dL (0.60-1.30)
== END | disposition home or self-care (01) ==
LOC: LABPV 07:05
PROVIDERS: ATTEND Internal Medicine Cardiovascular Disease
DX: E55.9 Vitamin D deficiency, unspecified (principal); D56.5 Hemoglobin E-beta thalassemia; I13.0 Hypertensive heart and chronic kidney disease with heart failure and stage 1 through stage 4 chronic kidney disease, or unspecified chronic kidney disease; E11.22 Type 2 diabetes mellitus with diabetic chronic kidney disease; N18.4 Chronic kidney disease, stage 4 (severe); I50.9 Heart failure, unspecified; E78.00 Pure hypercholesterolemia, unspecified

== ENCOUNTER → 2019-07-10 | Outpatient (CLI) | payer MEDICARE ==
[~2019-07-10] MED LIST changes: +SEVE800T17 PO; -SEVEC800 PO
[2019-07-10 12:08] LABS: CALCIUM, TOTAL 9.2 mg/dL (8.8-10.5); CREATININE 2.05 mg/dL (0.60-1.30); POTASSIUM 3.6 mmol/L (3.5-5.1)
[2019-07-10 12:39] LABS: CREATININE,URINE RANDOM 90.3 mg/dL (30.0-125.0)
== END | disposition home or self-care (01) ==
LOC: LABPV 07:19
PROVIDERS: ATTEND Internal Medicine Nephrology
DX: E78.49 Other hyperlipidemia (principal); N25.81 Secondary hyperparathyroidism of renal origin; N18.4 Chronic kidney disease, stage 4 (severe); I13.0 Hypertensive heart and chronic kidney disease with heart failure and stage 1 through stage 4 chronic kidney disease, or unspecified chronic kidney disease; E11.22 Type 2 diabetes mellitus with diabetic chronic kidney disease; I50.9 Heart failure, unspecified
CPT/HCPCS: 82570; 83970; 84100; 84156

== ENCOUNTER → 2019-09-07 | Outpatient (CLI) | payer MEDICARE ==
[~2019-09-07] MED LIST changes: +CHOL100018 PO; +DOCU-342 PO; -DOCU250C91 PO; -VITAD1000 PO
[2019-09-07 10:28] LABS: BASOPHILS % (AUTO) 0.8 % (0.0-2.0); EOSINOPHILS % (AUTO) 4.4 % (1.0-6.0); HEMATOCRIT 29.3 % (36-46); HEMOGLOBIN 10.1 g/dL (12.0-16.0); LYMPHOCYTES # (AUTO) 1.1 K/uL (1.0-4.8); LYMPHOCYTES % (AUTO) 46.7 % (22.0-44.0); MEAN CORPUSCULAR HEMOGLOBIN 34.8 pg (26.0-34.0); MEAN CORPUSCULAR HGB CONC 34.4 G/dL (31.0-37.0); MEAN CORPUSCULAR VOLUME 101 fL (80-100); MONOCYTES # (AUTO) 0.1 K/uL (0.1-1.0); MONOCYTES % (AUTO) 4.2 % (2.0-9.0); NEUTROPHILS % (AUTO) 43.9 % (40.0-70.0); PLATELET COUNT (AUTO) 125 K/uL (150-450); RED CELL DISTRIBUTION WIDTH 14.2 % (11.5-14.5)
[2019-09-07 10:51] LABS: ALBUMIN 3.2 g/dL (3.4-5.0); BILIRUBIN,TOTAL 0.4 mg/dL (0.1-1.0); CALCIUM, TOTAL 8.7 mg/dL (8.8-10.5); CHOL/HDL RATIO 1.4 (3.9-5.7); CREATININE 1.57 mg/dL (0.60-1.30); MAGNESIUM 1.8 mg/dL (1.80-2.40); POTASSIUM 4.1 mmol/L (3.5-5.1); TOTAL PROTEIN, SERUM 8.5 g/dL (6.4-8.2)
[2019-09-07 11:01] LABS: HEMOGLOBIN A1C 5.1 % (4.5-6.2)
[2019-09-07 17:40] LABS: FREE T4 (FREE THYROXINE) 0.92 ng/dL (0.76-1.46); THYROID STIMULATING HORMONE 8.01 uIU/mL (0.36-3.74)
== END | disposition home or self-care (01) ==
LOC: LABPV 07:51
PROVIDERS: ATTEND Internal Medicine Cardiovascular Disease
DX: E55.9 Vitamin D deficiency, unspecified (principal); I11.0 Hypertensive heart disease with heart failure; I50.9 Heart failure, unspecified; D56.5 Hemoglobin E-beta thalassemia; E11.8 Type 2 diabetes mellitus with unspecified complications
CPT/HCPCS: 82306; 83036; 83735; 84439; 84443

== ENCOUNTER → 2019-10-26 | Outpatient (CLI) | payer MEDICARE ==
[2019-10-26 10:00] LABS: BASOPHILS % (AUTO) 1.1 % (0.0-2.0); HEMATOCRIT 32.4 % (36-46); LYMPHOCYTES # (AUTO) 1.2 K/uL (1.0-4.8); LYMPHOCYTES % (AUTO) 52.1 % (22.0-44.0); MEAN CORPUSCULAR HEMOGLOBIN 34.8 pg (26.0-34.0); MEAN CORPUSCULAR HGB CONC 34.1 G/dL (31.0-37.0); MEAN CORPUSCULAR VOLUME 102 fL (80-100); MONOCYTES # (AUTO) 0.1 K/uL (0.1-1.0); MONOCYTES % (AUTO) 2.6 % (2.0-9.0); NEUTROPHILS # (AUTO) 0.9 K/uL (1.8-7.7); NEUTROPHILS % (AUTO) 39.2 % (40.0-70.0); PLATELET COUNT (AUTO) 133 K/uL (150-450); RED BLOOD CELL COUNT(AUTO) 3.16 MIL/uL (4.00-5.20); RED CELL DISTRIBUTION WIDTH 15.6 % (11.5-14.5)
[2019-10-26 10:23] LABS: ALBUMIN 3.4 g/dL (3.4-5.0); BILIRUBIN,TOTAL 0.5 mg/dL (0.1-1.0); CALCIUM, TOTAL 8.6 mg/dL (8.8-10.5); CHOL/HDL RATIO 1.5 (3.9-5.7); CREATININE 1.86 mg/dL (0.60-1.30); FREE T4 (FREE THYROXINE) 0.98 ng/dL (0.76-1.46); POTASSIUM 4.5 mmol/L (3.5-5.1); THYROID STIMULATING HORMONE 8.6 uIU/mL (0.36-3.74); TOTAL PROTEIN, SERUM 8.9 g/dL (6.4-8.2)
[2019-10-26 10:27] LABS: HEMOGLOBIN A1C 5.2 % (4.5-6.2)
== END | disposition home or self-care (01) ==
LOC: LABPV 08:02
PROVIDERS: ATTEND Internal Medicine Cardiovascular Disease
DX: I11.0 Hypertensive heart disease with heart failure (principal); I50.9 Heart failure, unspecified; E11.8 Type 2 diabetes mellitus with unspecified complications; E55.9 Vitamin D deficiency, unspecified; D56.5 Hemoglobin E-beta thalassemia
CPT/HCPCS: 82306; 83036; 83735; 84439; 84443

== ENCOUNTER → 2019-11-13 | Outpatient (CLI) | payer MEDICARE ==
[2019-11-13 09:18] LABS: HEMOGLOBIN A1C 5.9 % (4.5-6.2)
[2019-11-13 10:01] LABS: CALCIUM, TOTAL 8.8 mg/dL (8.8-10.5); CREATININE 2.01 mg/dL (0.60-1.30); PHOSPHORUS 5.1 mg/dL (2.5-4.9); POTASSIUM 4.5 mmol/L (3.5-5.1)
== END | disposition home or self-care (01) ==
LOC: LABMN 08:28
PROVIDERS: ATTEND Internal Medicine Nephrology
DX: I12.9 Hypertensive chronic kidney disease with stage 1 through stage 4 chronic kidney disease, or unspecified chronic kidney disease (principal); E10.22 Type 1 diabetes mellitus with diabetic chronic kidney disease; N18.4 Chronic kidney disease, stage 4 (severe); E10.10 Type 1 diabetes mellitus with ketoacidosis without coma
CPT/HCPCS: 83036; 83970; 84100

== ENCOUNTER 2022-09-06 21:11 | Inpatient (IN) | payer MEDICARE ==
[~2022-09-06] VITALS: Ht 152.4 cm; Wt 66.4 kg
[~2022-09-06 21:11] MED LIST changes: -ALLO100T PO; +AZIT-104 PO; +B CO1CAP6 PO; -CALC25 PO; +CALC667C PO; -CETI10TA59 PO; -CHOL100018 PO; +CHOL25TA4 PO; -DOCU-342 PO; +DOCU-350 PO; -FERR-89 PO; -FOLI1CAP2 PO; +FURO40TA5 PO; +GABA-1181 PO; -GABA-531 PO; +LEVO50TA11 PO; -PANT40TA25 PO; -POLY17PO PO; +SERT-158 PO; -SERT50TA12 PO; -SEVE800T17 PO; +SODI650T33 PO; -TEMA7.5C17 PO; -TRAM50TA4 PO
[2022-09-06 22:27] LABS: MEAN CORPUSCULAR HEMOGLOBIN 35.3 pg (26.0-34.0); NEUTROPHILS # (AUTO) 1.5 K/uL (1.8-7.7)
[2022-09-06 22:31] LABS: BASOPHILS % (AUTO) 0.6 % (0.0-2.0); EOSINOPHILS % (AUTO) 1.4 % (1.0-6.0); HEMATOCRIT 27.4 % (36-46); LYMPHOCYTES # (AUTO) 0.9 K/uL (1.0-4.8); LYMPHOCYTES % (AUTO) 35.7 % (22.0-44.0); MEAN CORPUSCULAR HGB CONC 32.8 G/dL (31.0-37.0); MEAN CORPUSCULAR VOLUME 108 fL (80-100); MONOCYTES # (AUTO) 0.1 K/uL (0.1-1.0); MONOCYTES % (AUTO) 2.5 % (2.0-9.0); NEUTROPHILS % (AUTO) 59.8 % (40.0-70.0); PLATELET COUNT (AUTO) 225 K/uL (150-450); RED BLOOD CELL COUNT(AUTO) 2.55 MIL/uL (4.00-5.20); RED CELL DISTRIBUTION WIDTH 21.2 % (11.5-14.5)
[2022-09-06 22:42] LABS: CALCIUM, TOTAL 9.2 mg/dL (8.8-10.5); CREATININE 2.91 mg/dL (0.60-1.30); POTASSIUM 5.1 mmol/L (3.5-5.1)
[2022-09-06 22:47] LABS: ALBUMIN 2.9 g/dL (3.4-5.0); BILIRUBIN,TOTAL 0.8 mg/dL (0.1-1.0); MAGNESIUM 2.7 mg/dL (1.80-2.40); TOTAL PROTEIN, SERUM 10.9 g/dL (6.4-8.2)
[2022-09-06 23:08] LABS: COVID AG,FIA SOURCE NASOPHARYNGEAL
[2022-09-06] MEDS ORDERED: FUROSEMIDE 40 MG/4 ML VIAL IVP ONE (23:15)
[2022-09-06] MEDS ORDERED: ONDANSETRON HCL 4 MG/2 ML VIAL IVP PRN ×2 (23:45)
[2022-09-06] MEDS ORDERED: MORPHINE SULFATE 2 MG/ML SYRINGE IVP PRN (23:45)
[2022-09-06] MEDS ORDERED: BISACODYL 10 MG RECTAL RECTAL SUPPOSITORY PR PRN (23:45)
[2022-09-06] MEDS ORDERED: ACETAMINOPHEN 325 MG TABLET PO PRN ×2 (23:45)
[2022-09-06] MEDS ORDERED: ZOLPIDEM TARTRATE 5 MG TABLET PO PRN (23:45)
[2022-09-06] MEDS ORDERED: MAGNESIUM HYDROXIDE SUSPENSION 30 ML UDCUP PO PRN (23:45)
[2022-09-06] MEDS ORDERED: HYDROCODONE/ACETAMINOPHEN 5-325 MG TABLET PO PRN (23:45)
[2022-09-07] MEDS: CALCIUM ACETATE 667 MG CAPSULE PO SCH ×3 (06:52→16:44)
[2022-09-07] MEDS: LEVOTHYROXINE SODIUM 50 MCG TABLET PO SCH (06:53)
[2022-09-07] MEDS: SODIUM BICARBONATE 650 MG TABLET PO SCH ×3 (09:24→21:52)
[2022-09-07] MEDS: CHOLECALCIFEROL (VIT D3) 1,000 UNITS [25 MCG] TABLET PO SCH (09:25)
[2022-09-07] MEDS: PANTOPRAZOLE SODIUM 40 MG DR TABLET PO SCH (09:25)
[2022-09-07] MEDS: APIXABAN 5 MG TABLET PO SCH ×2 (09:25→21:51)
[2022-09-07] MEDS: DOCUSATE SODIUM 100 MG CAPSULE PO SCH ×2 (09:25→21:51)
[2022-09-07] MEDS: SOTALOL HCL 80 MG TABLET PO SCH ×2 (09:25→21:52)
[2022-09-07] MEDS: FUROSEMIDE 40 MG/4 ML VIAL IVP SCH ×3 (09:26→21:51)
[2022-09-07] MEDS: SIMVASTATIN 20 MG TABLET PO SCH (21:52)
[2022-09-07] MEDS: GABAPENTIN 300 MG CAPSULE PO SCH (21:52)
[2022-09-07] MEDS: GuaiFENesin SR 600 MG ER TABLET PO SCH (21:52)
[2022-09-08 05:37] LABS: BASOPHILS % (AUTO) 1.3 % (0.0-2.0); HEMATOCRIT 23.7 % (36-46); HEMOGLOBIN 7.9 g/dL (12.0-16.0); LYMPHOCYTES # (AUTO) 0.7 K/uL (1.0-4.8); LYMPHOCYTES % (AUTO) 34.4 % (22.0-44.0); MEAN CORPUSCULAR HEMOGLOBIN 35.3 pg (26.0-34.0); MEAN CORPUSCULAR HGB CONC 33.2 G/dL (31.0-37.0); MEAN CORPUSCULAR VOLUME 106 fL (80-100); MONOCYTES % (AUTO) 2.1 % (2.0-9.0); NEUTROPHILS # (AUTO) 1.2 K/uL (1.8-7.7); NEUTROPHILS % (AUTO) 59.2 % (40.0-70.0); PLATELET COUNT (AUTO) 145 K/uL (150-450); RED BLOOD CELL COUNT(AUTO) 2.23 MIL/uL (4.00-5.20); RED CELL DISTRIBUTION WIDTH 21.2 % (11.5-14.5)
[2022-09-08 05:44] LABS: CALCIUM, TOTAL 8.8 mg/dL (8.8-10.5); CREATININE 2.7 mg/dL (0.60-1.30); POTASSIUM 4.1 mmol/L (3.5-5.1)
[2022-09-08] MEDS: LEVOTHYROXINE SODIUM 50 MCG TABLET PO SCH (06:28)
[2022-09-08] MEDS: FUROSEMIDE 40 MG/4 ML VIAL IVP SCH ×3 (08:48→21:08)
[2022-09-08] MEDS: CALCIUM ACETATE 667 MG CAPSULE PO SCH ×3 (08:48→16:35)
[2022-09-08] MEDS: SODIUM BICARBONATE 650 MG TABLET PO SCH ×3 (08:48→22:51)
[2022-09-08] MEDS: PANTOPRAZOLE SODIUM 40 MG DR TABLET PO SCH (08:48)
[2022-09-08] MEDS: CHOLECALCIFEROL (VIT D3) 1,000 UNITS [25 MCG] TABLET PO SCH (08:49)
[2022-09-08] MEDS: GuaiFENesin SR 600 MG ER TABLET PO SCH ×2 (08:49→21:08)
[2022-09-08] MEDS: DOCUSATE SODIUM 100 MG CAPSULE PO SCH ×2 (08:49→21:08)
[2022-09-08] MEDS: APIXABAN 5 MG TABLET PO SCH ×2 (08:49→22:51)
[2022-09-08] MEDS: SOTALOL HCL 80 MG TABLET PO SCH ×2 (08:49→21:00)
[2022-09-08 20:10] VITALS: BP 106/70
[2022-09-08] MEDS: SIMVASTATIN 20 MG TABLET PO SCH (21:08)
[2022-09-08] MEDS: GABAPENTIN 300 MG CAPSULE PO SCH (21:08)
[2022-09-09 00:29] VITALS: BP 96/56
[2022-09-09 06:23] VITALS: BP 122/67
[2022-09-09] MEDS: LEVOTHYROXINE SODIUM 50 MCG TABLET PO SCH (06:56)
[2022-09-09 07:05] LABS: BASOPHILS % (AUTO) 1.1 % (0.0-2.0); EOSINOPHILS % (AUTO) 2.6 % (1.0-6.0); HEMATOCRIT 24.2 % (36-46); HEMOGLOBIN 8.1 g/dL (12.0-16.0); LYMPHOCYTES # (AUTO) 0.9 K/uL (1.0-4.8); LYMPHOCYTES % (AUTO) 43.4 % (22.0-44.0); MEAN CORPUSCULAR HEMOGLOBIN 35.9 pg (26.0-34.0); MEAN CORPUSCULAR HGB CONC 33.4 G/dL (31.0-37.0); MEAN CORPUSCULAR VOLUME 108 fL (80-100); MONOCYTES % (AUTO) 1.9 % (2.0-9.0); PLATELET COUNT (AUTO) 142 K/uL (150-450); RED BLOOD CELL COUNT(AUTO) 2.24 MIL/uL (4.00-5.20); RED CELL DISTRIBUTION WIDTH 20.7 % (11.5-14.5)
[2022-09-09 07:22] LABS: CALCIUM, TOTAL 8.9 mg/dL (8.8-10.5); CREATININE 2.52 mg/dL (0.60-1.30); POTASSIUM 4.2 mmol/L (3.5-5.1)
[2022-09-09] MEDS: CALCIUM ACETATE 667 MG CAPSULE PO SCH ×3 (08:00→18:06)
[2022-09-09] MEDS: SOTALOL HCL 80 MG TABLET PO SCH ×2 (09:00→20:04)
[2022-09-09] MEDS: FUROSEMIDE 40 MG/4 ML VIAL IVP SCH (09:00)
[2022-09-09] MEDS: CHOLECALCIFEROL (VIT D3) 1,000 UNITS [25 MCG] TABLET PO SCH (09:24)
[2022-09-09] MEDS: DOCUSATE SODIUM 100 MG CAPSULE PO SCH ×2 (09:24→20:00)
[2022-09-09] MEDS: PANTOPRAZOLE SODIUM 40 MG DR TABLET PO SCH (09:24)
[2022-09-09] MEDS: GuaiFENesin SR 600 MG ER TABLET PO SCH ×2 (09:25→20:00)
[2022-09-09] MEDS: APIXABAN 5 MG TABLET PO SCH ×2 (09:25→20:00)
[2022-09-09] MEDS: SODIUM BICARBONATE 650 MG TABLET PO SCH ×3 (09:25→20:01)
[2022-09-09 11:52] VITALS: BP 108/42
[2022-09-09] MEDS: FUROSEMIDE 80 MG TABLET PO SCH ×2 (11:59→20:01)
[2022-09-09 15:41] VITALS: BP 100/60
[2022-09-09] MEDS: GABAPENTIN 300 MG CAPSULE PO SCH (20:00)
[2022-09-09] MEDS: SIMVASTATIN 20 MG TABLET PO SCH (20:01)
[2022-09-09 20:17] VITALS: BP 118/54
[2022-09-10] VITALS (7 sets, daily range): BP systolic 103–135; BP diastolic 57–99
[2022-09-10 06:20] LABS: BASOPHILS % (AUTO) 1.4 % (0.0-2.0); EOSINOPHILS % (AUTO) 2.9 % (1.0-6.0); HEMATOCRIT 25.6 % (36-46); HEMOGLOBIN 8.6 g/dL (12.0-16.0); LYMPHOCYTES # (AUTO) 0.8 K/uL (1.0-4.8); LYMPHOCYTES % (AUTO) 33.3 % (22.0-44.0); MEAN CORPUSCULAR HEMOGLOBIN 36.2 pg (26.0-34.0); MEAN CORPUSCULAR HGB CONC 33.8 G/dL (31.0-37.0); MEAN CORPUSCULAR VOLUME 107 fL (80-100); MONOCYTES % (AUTO) 1.5 % (2.0-9.0); NEUTROPHILS # (AUTO) 1.4 K/uL (1.8-7.7); NEUTROPHILS % (AUTO) 60.9 % (40.0-70.0); PLATELET COUNT (AUTO) 138 K/uL (150-450); RED BLOOD CELL COUNT(AUTO) 2.39 MIL/uL (4.00-5.20); RED CELL DISTRIBUTION WIDTH 20.9 % (11.5-14.5)
[2022-09-10 06:40] LABS: CALCIUM, TOTAL 8.8 mg/dL (8.8-10.5); CREATININE 2.47 mg/dL (0.60-1.30); POTASSIUM 4.3 mmol/L (3.5-5.1)
[2022-09-10] MEDS: LEVOTHYROXINE SODIUM 50 MCG TABLET PO SCH (06:55)
[2022-09-10] MEDS: DOCUSATE SODIUM 100 MG CAPSULE PO SCH ×2 (08:30→20:47)
[2022-09-10] MEDS: APIXABAN 5 MG TABLET PO SCH ×2 (08:31→20:46)
[2022-09-10] MEDS: SOTALOL HCL 80 MG TABLET PO SCH (08:31)
[2022-09-10] MEDS: CALCIUM ACETATE 667 MG CAPSULE PO SCH (08:31)
[2022-09-10] MEDS: PANTOPRAZOLE SODIUM 40 MG DR TABLET PO SCH (08:32)
[2022-09-10] MEDS: CHOLECALCIFEROL (VIT D3) 1,000 UNITS [25 MCG] TABLET PO SCH (08:32)
[2022-09-10] MEDS: GuaiFENesin SR 600 MG ER TABLET PO SCH ×2 (08:32→20:46)
[2022-09-10 11:55] LABS: APPEARANCE,URINE CLEAR (CLEAR); BILIRUBIN,URINE NEGATIVE (NEGATIVE); GLUCOSE, URINE (UA) NEGATIVE (NEGATIVE); KETONES,URINE NEGATIVE (NEGATIVE); LEUKOCYTE ESTERASE ,URINE NEGATIVE (NEGATIVE); NITRATE,URINE NEGATIVE (NEGATIVE); OCCULT BLOOD,URINE NEGATIVE (NEGATIVE); PH,URINE 5.5 (5.0-8.0); PROTEIN,URINE NEGATIVE (NEGATIVE); SPECIFIC GRAVITIY, URINE 1.009 (1.003-1.030); UROBILINOGEN,URINE <=1.0 mg/dL (<=1.0)
[2022-09-10] MEDS: SIMVASTATIN 20 MG TABLET PO SCH (20:46)
[2022-09-10] MEDS: GABAPENTIN 300 MG CAPSULE PO SCH (20:46)
[2022-09-11 04:18] VITALS: BP 114/66
[2022-09-11] MEDS: LEVOTHYROXINE SODIUM 50 MCG TABLET PO SCH (06:33)
[2022-09-11 07:45] VITALS: BP 129/81
[2022-09-11] MEDS: GuaiFENesin SR 600 MG ER TABLET PO SCH (08:19)
[2022-09-11] MEDS: PANTOPRAZOLE SODIUM 40 MG DR TABLET PO SCH (08:19)
[2022-09-11] MEDS: CHOLECALCIFEROL (VIT D3) 1,000 UNITS [25 MCG] TABLET PO SCH (08:19)
[2022-09-11] MEDS: DOCUSATE SODIUM 100 MG CAPSULE PO SCH (08:19)
[2022-09-11] MEDS: APIXABAN 5 MG TABLET PO SCH (08:19)
[2022-09-11 09:07] LABS: FREE KAPPA LIGHT CHAINS,S 116.7 mg/L (3.3-19.4); FREE KAPPA/LAMBDA LT CHN RATIO 2.54 (0.26-1.65)
[2022-09-11] MEDS ORDERED: GUAIF600 PO (10:21)
[2022-09-11] MEDS ORDERED: CIPR500T10 PO (10:21)
[2022-09-11] MEDS ORDERED: FURO40 PO (10:21)
[2022-09-11 12:00] VITALS: BP 148/70
[2022-09-11 12:19] LABS: CREATININE,URINE 53.9 mg/dL (30.0-125.0)
[2022-09-11 12:20] LABS: CREATININE,SERUM FOR CRCL 2.47 mg/dL (0.60-1.30); SODIUM TIMED,URINE 80 mmol/L (20-110); TPROTEIN TIMED,URINE 16 mg/dL; URINE UREA NITROGEN, TIMED 411 mg/dL (350-1000)
[2022-09-11 12:21] LABS: COLLECTION TIME,URINE 24 HR
[2022-09-11 12:22] LABS: COLLECTION TIME,URINE 24 HR; SODIUM URINE, 24HR CALC 104 mmol/24H (40-220); TPROTEIN URINE, 24HRS COLL 208 mg/24Hr (0-165); UREA NITROGEN URINE,24HR CALC 5343 mg/24H (7000-20000)
== END 2022-09-11 13:30 | disposition home or self-care (01) | DRG 291 ==
LOC: EMS 21:27 → EEVIPCON 09-08 17:29 → 5S 09-08 17:29
PROVIDERS: ADMIT Internal Medicine; ATTEND Internal Medicine
DX: I13.0 Hypertensive heart and chronic kidney disease with heart failure and stage 1 through stage 4 chronic kidney disease, or unspecified chronic kidney disease (principal); I50.33 Acute on chronic diastolic (congestive) heart failure; N17.9 Acute kidney failure, unspecified; N18.4 Chronic kidney disease, stage 4 (severe); E87.3 Alkalosis; I69.351 Hemiplegia and hemiparesis following cerebral infarction affecting right dominant side; D63.8 Anemia in other chronic diseases classified elsewhere; D72.819 Decreased white blood cell count, unspecified; D53.9 Nutritional anemia, unspecified; D63.1 Anemia in chronic kidney disease; E03.9 Hypothyroidism, unspecified; E11.22 Type 2 diabetes mellitus with diabetic chronic kidney disease; E78.00 Pure hypercholesterolemia, unspecified; E83.52 Hypercalcemia; Z20.822 Contact with and (suspected) exposure to COVID-19; G62.9 Polyneuropathy, unspecified; M10.9 Gout, unspecified; I48.91 Unspecified atrial fibrillation; Z79.01 Long term (current) use of anticoagulants; Z79.899 Other long term (current) drug therapy; Z85.42 Personal history of malignant neoplasm of other parts of uterus; Z87.01 Personal history of pneumonia (recurrent); Z90.710 Acquired absence of both cervix and uterus
CPT/HCPCS: 36245; 36569; 71045; 76770; 76937; 80048; 80053; 81003; 81050; 82570; 82575; 83735; 83880; 83883; 83970; 84156; 84166; 84300; 84484; 84540; 85025; 87081; 93005; 99285; J1940; 36415-L1; 36415-TC

== ENCOUNTER 2023-01-03 08:58 | Inpatient (IN) | payer MEDICARE ==
[~2023-01-03] VITALS: Ht 152.4 cm; Wt 63.2 kg
[~2023-01-03 08:58] MED LIST changes: -AZIT-104 PO; +CIPR500T10 PO; +FURO40 PO; -FURO40TA5 PO; +GUAIF600 PO; -SOTA80 PO
[2023-01-03] MEDS ORDERED: SOTA80TA PO (09:05)
[2023-01-03] MEDS ORDERED: FURO40TA5 PO (09:05)
[2023-01-03] MEDS ORDERED: SIMV-46 PO (09:05)
[2023-01-03] MEDS ORDERED: SERT-438 PO (09:05)
[2023-01-03] MEDS ORDERED: AMLO5TAB66 PO (09:05)
[2023-01-03 09:15] LABS: COVID AG,FIA SOURCE NASAL SWAB
[2023-01-03] MEDS ORDERED: 0.9% SODIUM CHLORIDE 10 ML SYRINGE IVP PRN ×2 (09:30→14:00)
[2023-01-03] MEDS ORDERED: SODIUM CHLORIDE 0.9% 2,050 ML IV ONE (09:30)
[2023-01-03] MEDS ORDERED: ACETAMINOPHEN 1000 MG/ISO-OSM 100 ML IV ONE (09:30)
[2023-01-03] MEDS ORDERED: DILTIAZEM HCL 5 MG/ML 5 ML VIAL IVP ONE ×2 (09:30)
[2023-01-03 09:56] LABS: INFLUENZA TYPE A NEGATIVE FOR TYPE A (NEGATIVE); INFLUENZA TYPE B NEGATIVE FOR TYPE B (NEGATIVE)
[2023-01-03 10:17] LABS: BASOPHILS % (AUTO) 0.6 % (0.0-2.0); EOSINOPHILS % (AUTO) 0.4 % (1.0-6.0); HEMATOCRIT 27.1 % (36-46); HEMOGLOBIN 9.1 g/dL (12.0-16.0); LYMPHOCYTES # (AUTO) 0.2 K/uL (1.0-4.8); MEAN CORPUSCULAR HEMOGLOBIN 34.9 pg (26.0-34.0); MEAN CORPUSCULAR HGB CONC 33.5 G/dL (31.0-37.0); MEAN CORPUSCULAR VOLUME 104 fL (80-100); MONOCYTES % (AUTO) 1.7 % (2.0-9.0); NEUTROPHILS # (AUTO) 1.9 K/uL (1.8-7.7); PLATELET COUNT (AUTO) 173 K/uL (150-450); RED BLOOD CELL COUNT(AUTO) 2.61 MIL/uL (4.00-5.20)
[2023-01-03 10:20] LABS: CALCIUM, TOTAL 8.3 mg/dL (8.8-10.5); CREATININE 2.24 mg/dL (0.60-1.30); POTASSIUM 4.2 mmol/L (3.5-5.1)
[2023-01-03 10:21] LABS: NEUTROPHILS % (AUTO) 87.3 % (40.0-70.0)
[2023-01-03 10:25] LABS: D-DIMER 1.12 mg/L FEU (0.00-0.50); INR 1.1 (0.9-1.1); PROTHROMBIN TIME 11.9 SEC (9.4-11.6)
[2023-01-03 10:28] LABS: LACTIC ACID 1.2 mmol/L (0.4-2.0)
[2023-01-03 10:34] LABS: ALBUMIN 2.7 g/dL (3.4-5.0); BILIRUBIN,TOTAL 0.6 mg/dL (0.1-1.0); TOTAL PROTEIN, SERUM 9.7 g/dL (6.4-8.2)
[2023-01-03] MEDS ORDERED: DILTIAZEM HCL 125 MG in DEXTROSE 5%-WATER 100 ML IV PRN ×2 (10:45→16:15)
[2023-01-03 11:28] LABS: APPEARANCE,URINE CLEAR (CLEAR); BILIRUBIN,URINE NEGATIVE (NEGATIVE); GLUCOSE, URINE (UA) NEGATIVE (NEGATIVE); KETONES,URINE NEGATIVE (NEGATIVE); LEUKOCYTE ESTERASE ,URINE TRACE (NEGATIVE); NITRATE,URINE NEGATIVE (NEGATIVE); OCCULT BLOOD,URINE MODERATE (NEGATIVE); PH,URINE 5.5 (5.0-8.0); PROTEIN,URINE 30-70 mg/dL (NEGATIVE); SPECIFIC GRAVITIY, URINE 1.012 (1.003-1.030); UROBILINOGEN,URINE <=1.0 mg/dL (<=1.0)
[2023-01-03 11:42] LABS: BACTERIA,URINE Many /HPF (None Seen); RBC,URINE 0-2 /HPF (0-2); SQUAMOUS EPITHELIAL CELL,UR Few /LPF (None Seen)
[2023-01-03] MEDS ORDERED: AZITHROMYCIN 500 MG/NS 250 ML IV ONE (12:30)
[2023-01-03] MEDS ORDERED: CefTRIAXone 1 GM/DEXTROSE 50 ML IV ONE (12:30)
[2023-01-03] MEDS ORDERED: FUROSEMIDE 40 MG/4 ML VIAL IVP ONE (12:30)
[2023-01-03] MEDS ORDERED: BISACODYL 10 MG RECTAL RECTAL SUPPOSITORY PR PRN (14:00)
[2023-01-03] MEDS ORDERED: IPRATROPIUM BROMIDE 0.5 MG/2.5 ML NEB SOLUTION NEB PRN (14:00)
[2023-01-03] MEDS ORDERED: ONDANSETRON HCL 4 MG/2 ML VIAL IVP PRN (14:00)
[2023-01-03] MEDS ORDERED: ALBUTEROL SULFATE 2.5 MG/0.5 ML NEB SOLUTION NEB PRN (14:00)
[2023-01-03 14:19] LABS: PHOSPHORUS 3.8 mg/dL (2.5-4.9)
[2023-01-03 15:00] VITALS: BP 141/94
[2023-01-03] MEDS: FAMOTIDINE 20 MG TABLET PO SCH (15:35)
[2023-01-03] MEDS: DOXYCYCLINE HYCLATE 100 MG in DEXTROSE 5%-WATER 100 ML IV SCH (15:36)
[2023-01-03 16:11] LABS: FREE T4 (FREE THYROXINE) 1.56 ng/dL (0.76-1.46); THYROID STIMULATING HORMONE 7.56 uIU/mL (0.36-3.74)
[2023-01-03] MEDS ORDERED: TraMADol HCL 50 MG TABLET PO ONE (19:30)
[2023-01-03 20:00] VITALS: BP 141/81
[2023-01-03] MEDS: DOCUSATE SODIUM 100 MG CAPSULE PO SCH (20:28)
[2023-01-03] MEDS: APIXABAN 2.5 MG TABLET PO SCH (20:28)
[2023-01-03] MEDS: SOTALOL HCL 80 MG TABLET PO SCH (20:29)
[2023-01-03] MEDS: GABAPENTIN 300 MG CAPSULE PO SCH (20:29)
[2023-01-03] MEDS: ACETAMINOPHEN 325 MG TABLET PO PRN (20:30)
[2023-01-03] MEDS ORDERED: SIMVASTATIN 40 MG TABLET PO SCH (21:00)
[2023-01-03 22:08] LABS: CREATININE,URINE RANDOM 8.8 mg/dL (30.0-125.0)
[2023-01-04] VITALS: BP 120/70
[2023-01-04] MEDS: DOXYCYCLINE HYCLATE 100 MG in DEXTROSE 5%-WATER 100 ML IV SCH ×2 (02:33→15:30)
[2023-01-04] MEDS: ACETAMINOPHEN 325 MG TABLET PO PRN ×4 (02:38→15:29)
[2023-01-04 04:00] VITALS: BP 112/62
[2023-01-04] MEDS: PIPERACILLIN SODIUM/TAZOBACTAM 2.25 GM in DEXTROSE 5%-WATER 50 ML IV SCH ×3 (05:57→18:29)
[2023-01-04] MEDS: LEVOTHYROXINE SODIUM 75 MCG TABLET PO SCH (06:16)
[2023-01-04] MEDS ORDERED: LEVOTHYROXINE SODIUM 50 MCG TABLET PO SCH (06:30)
[2023-01-04 08:00] VITALS: BP 126/73
[2023-01-04] MEDS: ETHYL ALCOHOL 62% ANTISEPTIC NASAL SANITIZER 0.6 ML AMPUL NASAL SCH ×2 (08:31→20:31)
[2023-01-04] MEDS: BENZONATATE 100 MG CAPSULE PO SCH ×2 (08:31→15:29)
[2023-01-04] MEDS: FAMOTIDINE 20 MG TABLET PO SCH (08:32)
[2023-01-04] MEDS: DILTIAZEM HCL 30 MG TABLET PO SCH ×3 (08:32→18:29)
[2023-01-04] MEDS: FOLIC ACID/VIT B COMPLEX AND C TABLET PO SCH (08:32)
[2023-01-04] MEDS: APIXABAN 2.5 MG TABLET PO SCH ×2 (08:33→20:32)
[2023-01-04] MEDS: SERTRALINE HCL 50 MG TABLET PO SCH (08:33)
[2023-01-04] MEDS: DOCUSATE SODIUM 100 MG CAPSULE PO SCH ×2 (08:34→20:32)
[2023-01-04] MEDS: CHOLECALCIFEROL (VIT D3) 1,000 UNITS [25 MCG] TABLET PO SCH (08:34)
[2023-01-04] MEDS: FUROSEMIDE 40 MG/4 ML VIAL IVP SCH ×2 (08:34→20:31)
[2023-01-04] MEDS: SOTALOL HCL 80 MG TABLET PO SCH ×2 (08:35→21:31)
[2023-01-04 09:39] LABS: BASOPHILS % (AUTO) 0.4 % (0.0-2.0); EOSINOPHILS % (AUTO) 0.9 % (1.0-6.0); HEMATOCRIT 26.7 % (36-46); HEMOGLOBIN 8.9 g/dL (12.0-16.0); LYMPHOCYTES # (AUTO) 0.2 K/uL (1.0-4.8); LYMPHOCYTES % (AUTO) 8.4 % (22.0-44.0); MEAN CORPUSCULAR HEMOGLOBIN 34.7 pg (26.0-34.0); MEAN CORPUSCULAR HGB CONC 33.2 G/dL (31.0-37.0); MEAN CORPUSCULAR VOLUME 105 fL (80-100); MONOCYTES % (AUTO) 2.1 % (2.0-9.0); NEUTROPHILS # (AUTO) 1.7 K/uL (1.8-7.7); PLATELET COUNT (AUTO) 156 K/uL (150-450); RED BLOOD CELL COUNT(AUTO) 2.56 MIL/uL (4.00-5.20); RED CELL DISTRIBUTION WIDTH 17.2 % (11.5-14.5)
[2023-01-04 09:41] LABS: NEUTROPHILS % (AUTO) 88.2 % (40.0-70.0)
[2023-01-04 10:04] LABS: ALBUMIN 2.4 g/dL (3.4-5.0); BILIRUBIN,TOTAL 0.6 mg/dL (0.1-1.0); CALCIUM, TOTAL 8.2 mg/dL (8.8-10.5); CHOL/HDL RATIO 1.7 (3.9-5.7); CREATININE 2.25 mg/dL (0.60-1.30); POTASSIUM 3.8 mmol/L (3.5-5.1)
[2023-01-04] MEDS ORDERED: DEXMEDETOMIDINE HCL 400 MCG in SODIUM CHLORIDE 0.9% 96 ML IV PRN (10:45)
[2023-01-04] MEDS ORDERED: CefTRIAXone 1 GM/DEXTROSE 50 ML IV SCH (13:00)
[2023-01-04] MEDS ORDERED: TraMADol HCL 50 MG TABLET PO ONE (15:13)
[2023-01-04 16:00] VITALS: BP 132/87
[2023-01-04 20:00] VITALS: BP 109/71
[2023-01-04] MEDS: TraMADol HCL 50 MG TABLET PO PRN (20:32)
[2023-01-04] MEDS: GABAPENTIN 300 MG CAPSULE PO SCH (20:32)
[2023-01-05] VITALS (7 sets, daily range): BP systolic 87–122; BP diastolic 65–75
[2023-01-05] MEDS: BENZONATATE 100 MG CAPSULE PO SCH ×4 (00:10→23:18)
[2023-01-05] MEDS: DILTIAZEM HCL 30 MG TABLET PO SCH ×5 (00:10→23:18)
[2023-01-05] MEDS: PIPERACILLIN SODIUM/TAZOBACTAM 2.25 GM in DEXTROSE 5%-WATER 50 ML IV SCH ×4 (00:12→21:30)
[2023-01-05] MEDS: ACETAMINOPHEN 325 MG TABLET PO PRN (03:31)
[2023-01-05] MEDS: DOXYCYCLINE HYCLATE 100 MG in DEXTROSE 5%-WATER 100 ML IV SCH ×2 (03:52→13:27)
[2023-01-05] MEDS: LEVOTHYROXINE SODIUM 75 MCG TABLET PO SCH (05:58)
[2023-01-05] MEDS: FUROSEMIDE 40 MG/4 ML VIAL IVP SCH (07:50)
[2023-01-05] MEDS: ETHYL ALCOHOL 62% ANTISEPTIC NASAL SANITIZER 0.6 ML AMPUL NASAL SCH ×2 (07:51→20:45)
[2023-01-05] MEDS: TraMADol HCL 50 MG TABLET PO PRN ×2 (07:51→13:27)
[2023-01-05] MEDS: APIXABAN 2.5 MG TABLET PO SCH ×2 (07:52→20:45)
[2023-01-05] MEDS: CHOLECALCIFEROL (VIT D3) 1,000 UNITS [25 MCG] TABLET PO SCH (07:52)
[2023-01-05] MEDS: SERTRALINE HCL 50 MG TABLET PO SCH (07:52)
[2023-01-05] MEDS: DOCUSATE SODIUM 100 MG CAPSULE PO SCH ×2 (07:53→20:45)
[2023-01-05] MEDS: FAMOTIDINE 20 MG TABLET PO SCH (07:53)
[2023-01-05] MEDS: SOTALOL HCL 80 MG TABLET PO SCH ×2 (07:53→21:00)
[2023-01-05] MEDS: FOLIC ACID/VIT B COMPLEX AND C TABLET PO SCH (07:53)
[2023-01-05 10:52] LABS: BASOPHILS % (AUTO) 0.3 % (0.0-2.0); EOSINOPHILS % (AUTO) 1.3 % (1.0-6.0); HEMATOCRIT 26.3 % (36-46); HEMOGLOBIN 8.6 g/dL (12.0-16.0); LYMPHOCYTES # (AUTO) 0.2 K/uL (1.0-4.8); LYMPHOCYTES % (AUTO) 11.8 % (22.0-44.0); MEAN CORPUSCULAR HEMOGLOBIN 34.6 pg (26.0-34.0); MEAN CORPUSCULAR HGB CONC 32.8 G/dL (31.0-37.0); MEAN CORPUSCULAR VOLUME 105 fL (80-100); MONOCYTES # (AUTO) 0.1 K/uL (0.1-1.0); MONOCYTES % (AUTO) 2.7 % (2.0-9.0); NEUTROPHILS # (AUTO) 1.7 K/uL (1.8-7.7); NEUTROPHILS % (AUTO) 83.9 % (40.0-70.0); PLATELET COUNT (AUTO) 141 K/uL (150-450); RED BLOOD CELL COUNT(AUTO) 2.49 MIL/uL (4.00-5.20)
[2023-01-05 11:19] LABS: ALBUMIN 2.3 g/dL (3.4-5.0); BILIRUBIN,TOTAL 0.5 mg/dL (0.1-1.0); C-REACTIVE PROTEIN QUANT 17.84 mg/dL (0.00-0.30); CALCIUM, TOTAL 8.5 mg/dL (8.8-10.5); CREATININE 2.52 mg/dL (0.60-1.30); POTASSIUM 3.8 mmol/L (3.5-5.1); TOTAL PROTEIN, SERUM 9.3 g/dL (6.4-8.2)
[2023-01-05] MEDS ORDERED: VANCOMYCIN HCL 1 GM in DEXTROSE 5%-WATER 250 ML IV PRN (13:45)
[2023-01-05] MEDS ORDERED: VANCOMYCIN HCL 1 GM in DEXTROSE 5%-WATER 250 ML IV ONE (14:00)
[2023-01-05] MEDS ORDERED: VANCOMYCIN 1GM/WATER(PEG/NADA) 200 ML IV ONE (14:15)
[2023-01-05] MEDS ORDERED: VANCOMYCIN 1GM/WATER(PEG/NADA) 200 ML IV PRN (14:15)
[2023-01-05] MEDS: GABAPENTIN 300 MG CAPSULE PO SCH (20:44)
[2023-01-06] MEDS: DOXYCYCLINE HYCLATE 100 MG in DEXTROSE 5%-WATER 100 ML IV SCH (03:00)
[2023-01-06] MEDS ORDERED: DOXYCYCLINE HYCLATE 100 MG TABLET PO ONE (03:00)
[2023-01-06 03:51] VITALS: BP 106/57
[2023-01-06] MEDS: PIPERACILLIN SODIUM/TAZOBACTAM 2.25 GM in DEXTROSE 5%-WATER 50 ML IV SCH ×4 (06:00→11:51)
[2023-01-06] MEDS: LEVOTHYROXINE SODIUM 75 MCG TABLET PO SCH (06:32)
[2023-01-06] MEDS: DILTIAZEM HCL 30 MG TABLET PO SCH ×4 (06:32→23:43)
[2023-01-06 07:20] LABS: BASOPHILS % (AUTO) 0.9 % (0.0-2.0); EOSINOPHILS % (AUTO) 1.7 % (1.0-6.0); HEMATOCRIT 24.6 % (36-46); HEMOGLOBIN 8.5 g/dL (12.0-16.0); LYMPHOCYTES # (AUTO) 0.3 K/uL (1.0-4.8); LYMPHOCYTES % (AUTO) 13.3 % (22.0-44.0); MEAN CORPUSCULAR HEMOGLOBIN 35.7 pg (26.0-34.0); MEAN CORPUSCULAR HGB CONC 34.5 G/dL (31.0-37.0); MEAN CORPUSCULAR VOLUME 103 fL (80-100); MONOCYTES # (AUTO) 0.1 K/uL (0.1-1.0); MONOCYTES % (AUTO) 2.5 % (2.0-9.0); NEUTROPHILS % (AUTO) 81.6 % (40.0-70.0); PLATELET COUNT (AUTO) 137 K/uL (150-450); RED BLOOD CELL COUNT(AUTO) 2.38 MIL/uL (4.00-5.20); RED CELL DISTRIBUTION WIDTH 16.6 % (11.5-14.5)
[2023-01-06 07:41] LABS: ALBUMIN 2.1 g/dL (3.4-5.0); BILIRUBIN,TOTAL 0.5 mg/dL (0.1-1.0); C-REACTIVE PROTEIN QUANT 14.09 mg/dL (0.00-0.30); CALCIUM, TOTAL 8.4 mg/dL (8.8-10.5); CREATININE 2.42 mg/dL (0.60-1.30); MAGNESIUM 1.8 mg/dL (1.80-2.40); PHOSPHORUS 4.9 mg/dL (2.5-4.9); POTASSIUM 3.9 mmol/L (3.5-5.1); TOTAL PROTEIN, SERUM 8.6 g/dL (6.4-8.2)
[2023-01-06 08:09] VITALS: BP 110/69
[2023-01-06] MEDS: ETHYL ALCOHOL 62% ANTISEPTIC NASAL SANITIZER 0.6 ML AMPUL NASAL SCH ×2 (08:57→21:43)
[2023-01-06] MEDS: FAMOTIDINE 20 MG TABLET PO SCH (08:57)
[2023-01-06] MEDS: FOLIC ACID/VIT B COMPLEX AND C TABLET PO SCH (08:57)
[2023-01-06] MEDS: DOCUSATE SODIUM 100 MG CAPSULE PO SCH ×3 (08:57→21:45)
[2023-01-06] MEDS: BENZONATATE 100 MG CAPSULE PO SCH ×3 (08:57→23:43)
[2023-01-06] MEDS: SOTALOL HCL 80 MG TABLET PO SCH (08:57)
[2023-01-06] MEDS: APIXABAN 2.5 MG TABLET PO SCH ×2 (08:57→21:42)
[2023-01-06] MEDS: SERTRALINE HCL 50 MG TABLET PO SCH (08:58)
[2023-01-06] MEDS: CHOLECALCIFEROL (VIT D3) 1,000 UNITS [25 MCG] TABLET PO SCH (08:58)
[2023-01-06 11:11] VITALS: BP 102/61
[2023-01-06 16:00] VITALS: BP 114/73
[2023-01-06 19:45] VITALS: BP 105/69
[2023-01-06] MEDS: TraMADol HCL 50 MG TABLET PO PRN (21:42)
[2023-01-06] MEDS: GABAPENTIN 300 MG CAPSULE PO SCH (21:42)
[2023-01-06 23:46] VITALS: BP 115/81
[2023-01-07 03:54] VITALS: BP 100/60
[2023-01-07] MEDS: DILTIAZEM HCL 30 MG TABLET PO SCH ×4 (06:36→17:05)
[2023-01-07] MEDS: LEVOTHYROXINE SODIUM 75 MCG TABLET PO SCH (06:36)
[2023-01-07 07:19] LABS: BASOPHILS % (AUTO) 0.7 % (0.0-2.0); EOSINOPHILS % (AUTO) 1.2 % (1.0-6.0); HEMATOCRIT 23.7 % (36-46); HEMOGLOBIN 8.2 g/dL (12.0-16.0); LYMPHOCYTES # (AUTO) 0.4 K/uL (1.0-4.8); LYMPHOCYTES % (AUTO) 16.6 % (22.0-44.0); MEAN CORPUSCULAR HEMOGLOBIN 35.6 pg (26.0-34.0); MEAN CORPUSCULAR HGB CONC 34.7 G/dL (31.0-37.0); MEAN CORPUSCULAR VOLUME 103 fL (80-100); MONOCYTES # (AUTO) 0.1 K/uL (0.1-1.0); MONOCYTES % (AUTO) 2.8 % (2.0-9.0); NEUTROPHILS # (AUTO) 1.8 K/uL (1.8-7.7); NEUTROPHILS % (AUTO) 78.7 % (40.0-70.0); PLATELET COUNT (AUTO) 138 K/uL (150-450); RED BLOOD CELL COUNT(AUTO) 2.31 MIL/uL (4.00-5.20); RED CELL DISTRIBUTION WIDTH 16.3 % (11.5-14.5)
[2023-01-07 07:39] LABS: VANCOMYCIN,RANDOM 3.8 mcg/mL (25.0-50.0)
[2023-01-07 07:56] VITALS: BP 98/61
[2023-01-07] MEDS: FAMOTIDINE 20 MG TABLET PO SCH (08:32)
[2023-01-07] MEDS: DOCUSATE SODIUM 100 MG CAPSULE PO SCH ×2 (08:32→21:30)
[2023-01-07] MEDS: FOLIC ACID/VIT B COMPLEX AND C TABLET PO SCH (08:32)
[2023-01-07] MEDS: APIXABAN 2.5 MG TABLET PO SCH ×2 (08:32→21:29)
[2023-01-07] MEDS: BENZONATATE 100 MG CAPSULE PO SCH ×2 (08:32→17:05)
[2023-01-07] MEDS: SERTRALINE HCL 50 MG TABLET PO SCH (08:33)
[2023-01-07] MEDS: CHOLECALCIFEROL (VIT D3) 1,000 UNITS [25 MCG] TABLET PO SCH (08:33)
[2023-01-07] MEDS: ETHYL ALCOHOL 62% ANTISEPTIC NASAL SANITIZER 0.6 ML AMPUL NASAL SCH ×2 (08:33→21:28)
[2023-01-07 09:58] LABS: ALBUMIN 1.9 g/dL (3.4-5.0); BILIRUBIN,TOTAL 0.4 mg/dL (0.1-1.0); CALCIUM, TOTAL 8.1 mg/dL (8.8-10.5); CREATININE 2.3 mg/dL (0.60-1.30); PHOSPHORUS 3.8 mg/dL (2.5-4.9)
[2023-01-07 11:26] VITALS: BP 98/55
[2023-01-07] MEDS ORDERED: *CLINICAL-LEVOFLOXACIN ORAL DOSING CLINICAL ONE (12:30)
[2023-01-07] MEDS ORDERED: LEVOFLOXACIN 750 MG TABLET PO ONE (13:00)
[2023-01-07 14:07] LABS: LEGIONELLA PNEUMO AG URINE Negative (Negative); S PNEUMO SOURCE Urine; STREP PNEUMONIAE AG URINE Positive (Negative)
[2023-01-07 15:27] VITALS: BP 116/66
[2023-01-07] MEDS: TraMADol HCL 50 MG TABLET PO PRN (17:05)
[2023-01-07] MEDS ORDERED: PIPERACILLIN SODIUM/TAZOBACTAM 2.25 GM in DEXTROSE 5%-WATER 50 ML IV SCH (18:00)
[2023-01-07 19:32] VITALS: BP 107/58
[2023-01-07] MEDS ORDERED: SOTALOL HCL 80 MG TABLET PO SCH (21:00)
[2023-01-07] MEDS: GABAPENTIN 300 MG CAPSULE PO SCH (21:29)
[2023-01-08 00:05] VITALS: BP 125/69
[2023-01-08 04:48] VITALS: BP 117/73
[2023-01-08] MEDS: LEVOTHYROXINE SODIUM 75 MCG TABLET PO SCH (06:55)
[2023-01-08] MEDS ORDERED: VANCOMYCIN HCL 1.5 GM in DEXTROSE 5%-WATER 250 ML IV ONE (08:00)
[2023-01-08] MEDS ORDERED: VANCOMYCIN HCL 1.25 GM in DEXTROSE 5%-WATER 250 ML IV ONE (08:00)
[2023-01-08 08:02] VITALS: BP 128/80
[2023-01-08] MEDS ORDERED: EPOETIN ALFA 10,000 UNITS/ML VIAL SQ SCH (09:00)
[2023-01-08] MEDS: BENZONATATE 100 MG CAPSULE PO SCH ×4 (09:03→23:54)
[2023-01-08] MEDS: FOLIC ACID/VIT B COMPLEX AND C TABLET PO SCH (09:03)
[2023-01-08] MEDS: DOCUSATE SODIUM 100 MG CAPSULE PO SCH ×2 (09:04→20:53)
[2023-01-08] MEDS: CHOLECALCIFEROL (VIT D3) 1,000 UNITS [25 MCG] TABLET PO SCH (09:04)
[2023-01-08] MEDS: TraMADol HCL 50 MG TABLET PO PRN (09:04)
[2023-01-08] MEDS: FAMOTIDINE 20 MG TABLET PO SCH (09:04)
[2023-01-08] MEDS: APIXABAN 2.5 MG TABLET PO SCH ×2 (09:04→20:53)
[2023-01-08] MEDS: ETHYL ALCOHOL 62% ANTISEPTIC NASAL SANITIZER 0.6 ML AMPUL NASAL SCH ×2 (09:05→20:52)
[2023-01-08] MEDS: SERTRALINE HCL 50 MG TABLET PO SCH (09:20)
[2023-01-08] MEDS: DILTIAZEM HCL 30 MG TABLET PO SCH (09:34)
[2023-01-08] MEDS: DILTIAZEM HCL 60 MG SR CAPSULE PO SCH (09:35)
[2023-01-08 11:07] LABS: ALBUMIN URINE (ELP) 63.7 %
[2023-01-08 11:50] VITALS: BP 111/70
[2023-01-08 12:05] LABS: C-REACTIVE PROTEIN QUANT 5.3 mg/dL (0.00-0.30); CALCIUM, TOTAL 8.4 mg/dL (8.8-10.5); CREATININE 1.83 mg/dL (0.60-1.30); PHOSPHORUS 2.9 mg/dL (2.5-4.9); POTASSIUM 4.5 mmol/L (3.5-5.1)
[2023-01-08 13:27] LABS: ABG A-A DIFF O2 33.1 mmHg (10-20.0); ABG BASE EXCESS 6.6 mmol/L (-2.0-3.0); ABG CARBOXYHEMOGLOBIN 0.8 % (0.0-1.5); ABG HCO3 29.6 mmol/L (22.0-26.0); ABG METHEMOGLOBIN 0.2 % (0.0-1.5); ABG OXYGEN CONTENT 13.6 mL/dL (15.0-23.0); ABG OXYGEN SATURATION 90.2 % (95.0-98.0); ABG OXYHEMOGLOBIN 89.3 % (94.0-100.0); ABG PCO2 47 mmHg (35-45); ABG PH 7.438 (7.35-7.450); ABG TOTAL HEMOGLOBIN 10.8 G/dL (12.0-18.0); PO2, ARTERIAL BG 61.1 mmHg (75.0-83.0); SITE, BLOOD GAS RT RADIAL; SOURCE, BLOOD GAS ARTERIAL
[2023-01-08 13:28] LABS: O2 DEVICE,BLOOD GAS ROOM AIR (ROOM AIR)
[2023-01-08 15:01] VITALS: BP 102/66
[2023-01-08 19:59] VITALS: BP 115/67
[2023-01-08] MEDS: GABAPENTIN 300 MG CAPSULE PO SCH (20:52)
[2023-01-09 00:10] VITALS: BP 121/81
[2023-01-09] MEDS: TraMADol HCL 50 MG TABLET PO PRN (01:51)
[2023-01-09 04:23] VITALS: BP 130/86
[2023-01-09] MEDS: LEVOTHYROXINE SODIUM 75 MCG TABLET PO SCH (06:12)
[2023-01-09 06:52] LABS: BASOPHILS % (AUTO) 0.8 % (0.0-2.0); EOSINOPHILS % (AUTO) 1.7 % (1.0-6.0); HEMATOCRIT 25.2 % (36-46); HEMOGLOBIN 8.5 g/dL (12.0-16.0); LYMPHOCYTES # (AUTO) 0.5 K/uL (1.0-4.8); LYMPHOCYTES % (AUTO) 27.6 % (22.0-44.0); MEAN CORPUSCULAR HEMOGLOBIN 34.8 pg (26.0-34.0); MEAN CORPUSCULAR HGB CONC 33.8 G/dL (31.0-37.0); MEAN CORPUSCULAR VOLUME 103 fL (80-100); NEUTROPHILS # (AUTO) 1.2 K/uL (1.8-7.7); NEUTROPHILS % (AUTO) 67.9 % (40.0-70.0); PLATELET COUNT (AUTO) 151 K/uL (150-450); RED BLOOD CELL COUNT(AUTO) 2.45 MIL/uL (4.00-5.20); RED CELL DISTRIBUTION WIDTH 16.3 % (11.5-14.5)
[2023-01-09 07:10] LABS: CALCIUM, TOTAL 8.7 mg/dL (8.8-10.5); CREATININE 1.65 mg/dL (0.60-1.30); POTASSIUM 4.3 mmol/L (3.5-5.1)
[2023-01-09 07:16] LABS: MAGNESIUM 2.1 mg/dL (1.80-2.40); PHOSPHORUS 2.8 mg/dL (2.5-4.9)
[2023-01-09 07:43] VITALS: BP 134/84
[2023-01-09] MEDS ORDERED: VANCOMYCIN HCL 500 MG in DEXTROSE 5%-WATER 100 ML IV SCH (08:00)
[2023-01-09] MEDS: ETHYL ALCOHOL 62% ANTISEPTIC NASAL SANITIZER 0.6 ML AMPUL NASAL SCH (08:25)
[2023-01-09] MEDS: DILTIAZEM HCL 60 MG SR CAPSULE PO SCH (08:26)
[2023-01-09] MEDS: BENZONATATE 100 MG CAPSULE PO SCH ×2 (08:26→17:26)
[2023-01-09] MEDS: DOCUSATE SODIUM 100 MG CAPSULE PO SCH (08:26)
[2023-01-09] MEDS: SERTRALINE HCL 50 MG TABLET PO SCH (08:26)
[2023-01-09] MEDS: FAMOTIDINE 20 MG TABLET PO SCH (08:26)
[2023-01-09] MEDS: FOLIC ACID/VIT B COMPLEX AND C TABLET PO SCH (08:26)
[2023-01-09] MEDS: APIXABAN 2.5 MG TABLET PO SCH (08:27)
[2023-01-09] MEDS: CHOLECALCIFEROL (VIT D3) 1,000 UNITS [25 MCG] TABLET PO SCH (08:27)
[2023-01-09] MEDS ORDERED: LEVOFLOXACIN 500 MG TABLET PO SCH (09:00)
[2023-01-09] MEDS ORDERED: LEVOFLOXACIN 750 MG/D5% WATER 150 ML IV SCH (09:00)
[2023-01-09] MEDS ORDERED: LEVOFLOXACIN 750 MG TABLET PO SCH (09:00)
[2023-01-09] MEDS ORDERED: APIX2.5T PO (10:37)
[2023-01-09] MEDS ORDERED: DILT60SR PO (10:37)
[2023-01-09 11:36] VITALS: BP 116/72
[2023-01-09 15:40] VITALS: BP 120/69
[2023-01-09] MEDS ORDERED: BENZ-39 PO (16:11)
[2023-01-09] MEDS ORDERED: BENZ-227 PO (16:12)
[2023-01-09] MEDS ORDERED: DILTIAZEM HCL 60 MG SR CAPSULE PO SCH (21:00)
[2023-01-10] MEDS ORDERED: DILTIAZEM HCL 60 MG SR CAPSULE PO SCH (09:00)
== END 2023-01-09 17:40 | disposition home health service (06) | DRG 871 ==
LOC: EMS 09:14 → ICU 13:58 → 5S 01-05 17:35
PROVIDERS: ADMIT Internal Medicine; ATTEND Internal Medicine
PROC: 05H933Z Insertion of Infusion Device into Right Brachial Vein, Percutaneous Approach (ICD-10-PCS; principal; 2023-01-07)
DX: A41.9 Sepsis, unspecified organism (principal); I50.33 Acute on chronic diastolic (congestive) heart failure; J96.00 Acute respiratory failure, unspecified whether with hypoxia or hypercapnia; J18.1 Lobar pneumonia, unspecified organism; I13.0 Hypertensive heart and chronic kidney disease with heart failure and stage 1 through stage 4 chronic kidney disease, or unspecified chronic kidney disease; N18.4 Chronic kidney disease, stage 4 (severe); N39.0 Urinary tract infection, site not specified; I48.19 Other persistent atrial fibrillation; C90.00 Multiple myeloma not having achieved remission; E87.1 Hypo-osmolality and hyponatremia; N17.9 Acute kidney failure, unspecified; G89.4 Chronic pain syndrome; D64.9 Anemia, unspecified; R79.82 Elevated C-reactive protein (CRP); M25.551 Pain in right hip; E03.8 Other specified hypothyroidism; E11.22 Type 2 diabetes mellitus with diabetic chronic kidney disease; E78.00 Pure hypercholesterolemia, unspecified; I34.0 Nonrheumatic mitral (valve) insufficiency; Z79.01 Long term (current) use of anticoagulants; Z82.49 Family history of ischemic heart disease and other diseases of the circulatory system; Z85.42 Personal history of malignant neoplasm of other parts of uterus; Z87.440 Personal history of urinary (tract) infections; Z90.710 Acquired absence of both cervix and uterus; Z98.84 Bariatric surgery status; Z79.899 Other long term (current) drug therapy; Z86.73 Personal history of transient ischemic attack (TIA), and cerebral infarction without residual deficits; Z22.322 Carrier or suspected carrier of Methicillin resistant Staphylococcus aureus
CPT/HCPCS: 36245; 36569; 36600; 71045; 71250; 73721; 76770; 76937; 80048; 80053; 80061; 80202; 81001; 82043; 82550; 82570; 82728; 82805; 83036; 83605; 83615; 83735; 83880; 83935; 84100; 84145; 84156; 84166; 84300; 84439; 84443; 84484; 85025; 85379; 85610; 85730; 86140; 86738; 87040; 87070; 87081; 87086; 87186; 87205; 87449; 87804; 87899; 93005; 93306; 93970; 97162; 97530; 99291; G0378; J0131; J0456; J0696; J0885; J1940; J1956; J2543; J3370; J3490; J7030; J7050; J7060; Q9967; 36415-L1; 36415-TC; U0003

== ENCOUNTER 2023-02-20 10:53 | Inpatient (IN) | payer MEDICARE ==
[~2023-02-20] VITALS: Ht 152.4 cm; Wt 59.4 kg
[~2023-02-20 10:53] MED LIST changes: +APIX2.5T PO; -APIX5TAB PO; +BENZ-39 PO; -CIPR500T10 PO; +DILT60SR PO; -FURO40 PO; -GUAIF600 PO; -SERT-158 PO; +SERT-438 PO; -SIMV-260 PO; +SIMV-46 PO
[2023-02-20] MEDS ORDERED: SODI650T33 PO (11:01)
[2023-02-20] MEDS ORDERED: ACETAMINOPHEN 325 MG TABLET PO ONE (12:30)
[2023-02-20] MEDS ORDERED: ASPIRIN 81 MG CHEWABLE TABLET PO ONE (12:30)
[2023-02-20 13:29] LABS: BASOPHILS % (AUTO) 1.1 % (0.0-2.0); EOSINOPHILS % (AUTO) 0.1 % (1.0-6.0); HEMATOCRIT 33.6 % (36-46); HEMOGLOBIN 11.1 g/dL (12.0-16.0); LYMPHOCYTES # (AUTO) 0.4 K/uL (1.0-4.8); LYMPHOCYTES % (AUTO) 15.7 % (22.0-44.0); MEAN CORPUSCULAR HGB CONC 32.9 G/dL (31.0-37.0); MEAN CORPUSCULAR VOLUME 106 fL (80-100); MONOCYTES % (AUTO) 1.5 % (2.0-9.0); NEUTROPHILS # (AUTO) 1.9 K/uL (1.8-7.7); NEUTROPHILS % (AUTO) 81.6 % (40.0-70.0); PLATELET COUNT (AUTO) 161 K/uL (150-450); RED BLOOD CELL COUNT(AUTO) 3.16 MIL/uL (4.00-5.20); RED CELL DISTRIBUTION WIDTH 16.8 % (11.5-14.5)
[2023-02-20 13:39] LABS: CALCIUM, TOTAL 9.3 mg/dL (8.8-10.5); CREATININE 2.2 mg/dL (0.60-1.30); POTASSIUM 3.8 mmol/L (3.5-5.1)
[2023-02-20 13:45] LABS: ALBUMIN 3.4 g/dL (3.4-5.0); BILIRUBIN,TOTAL 0.6 mg/dL (0.1-1.0); TOTAL PROTEIN, SERUM 9.9 g/dL (6.4-8.2)
[2023-02-20] MEDS ORDERED: CLOPIDOGREL BISULFATE 75 MG TABLET PO ONE (15:15)
[2023-02-20] MEDS ORDERED: ONDANSETRON HCL 4 MG/2 ML VIAL IVP PRN ×2 (15:30→16:00)
[2023-02-20] MEDS ORDERED: ACETAMINOPHEN 325 MG TABLET PO PRN ×2 (15:30→16:00)
[2023-02-20] MEDS ORDERED: BISACODYL 10 MG RECTAL RECTAL SUPPOSITORY PR PRN (16:00)
[2023-02-20] MEDS ORDERED: HEPARIN SODIUM,PORCINE 5,000 UNITS/ML VIAL SQ SCH (16:00)
[2023-02-20] MEDS ORDERED: MAGNESIUM HYDROXIDE SUSPENSION 30 ML UDCUP PO PRN (16:00)
[2023-02-20] MEDS ORDERED: MORPHINE SULFATE 2 MG/ML SYRINGE IVP PRN (16:00)
[2023-02-20] MEDS ORDERED: HEPARIN SODIUM,PORCINE 5,000 UNITS/ML VIAL IVP PRN ×2 (16:00)
[2023-02-20] MEDS ORDERED: ZOLPIDEM TARTRATE 5 MG TABLET PO PRN (16:00)
[2023-02-20] MEDS ORDERED: HEPARIN SODIUM 25000 UNITS/D5W 250 ML IV PRN (16:00)
[2023-02-20 16:39] LABS: BASOPHILS % (AUTO) 0.9 % (0.0-2.0); EOSINOPHILS % (AUTO) 0.2 % (1.0-6.0); HEMATOCRIT 32.3 % (36-46); HEMOGLOBIN 10.7 g/dL (12.0-16.0); LYMPHOCYTES # (AUTO) 0.3 K/uL (1.0-4.8); LYMPHOCYTES % (AUTO) 13.6 % (22.0-44.0); MEAN CORPUSCULAR HEMOGLOBIN 34.9 pg (26.0-34.0); MEAN CORPUSCULAR HGB CONC 33.1 G/dL (31.0-37.0); MEAN CORPUSCULAR VOLUME 105 fL (80-100); MONOCYTES % (AUTO) 1.9 % (2.0-9.0); NEUTROPHILS # (AUTO) 1.7 K/uL (1.8-7.7); NEUTROPHILS % (AUTO) 83.4 % (40.0-70.0); PLATELET COUNT (AUTO) 147 K/uL (150-450); RED BLOOD CELL COUNT(AUTO) 3.07 MIL/uL (4.00-5.20); RED CELL DISTRIBUTION WIDTH 16.7 % (11.5-14.5)
[2023-02-20] MEDS: SODIUM BICARBONATE 650 MG TABLET PO SCH ×2 (16:41→20:11)
[2023-02-20 16:48] LABS: PROTHROMBIN TIME 10.4 SEC (9.4-11.6)
[2023-02-20] MEDS: CALCIUM ACETATE 667 MG CAPSULE PO SCH (18:05)
[2023-02-20 18:30] VITALS: BP 105/66
[2023-02-20 19:32] VITALS: BP 105/70
[2023-02-20] MEDS: DOCUSATE SODIUM 100 MG CAPSULE PO SCH (20:11)
[2023-02-20] MEDS: SIMVASTATIN 40 MG TABLET PO SCH (20:11)
[2023-02-21] VITALS (8 sets, daily range): BP systolic 95–120; BP diastolic 57–89
[2023-02-21] MEDS: HYDROCODONE/ACETAMINOPHEN 5-325 MG TABLET PO PRN ×4 (04:30→22:30)
[2023-02-21] MEDS: LEVOTHYROXINE SODIUM 50 MCG TABLET PO SCH (06:21)
[2023-02-21 06:55] LABS: BASOPHILS % (AUTO) 0.8 % (0.0-2.0); EOSINOPHILS % (AUTO) 0.2 % (1.0-6.0); HEMATOCRIT 26.9 % (36-46); HEMOGLOBIN 9.1 g/dL (12.0-16.0); LYMPHOCYTES # (AUTO) 0.6 K/uL (1.0-4.8); LYMPHOCYTES % (AUTO) 29.1 % (22.0-44.0); MEAN CORPUSCULAR HEMOGLOBIN 35.3 pg (26.0-34.0); MEAN CORPUSCULAR VOLUME 104 fL (80-100); MONOCYTES % (AUTO) 2.2 % (2.0-9.0); NEUTROPHILS # (AUTO) 1.5 K/uL (1.8-7.7); NEUTROPHILS % (AUTO) 67.7 % (40.0-70.0); PLATELET COUNT (AUTO) 128 K/uL (150-450); RED BLOOD CELL COUNT(AUTO) 2.59 MIL/uL (4.00-5.20); RED CELL DISTRIBUTION WIDTH 16.5 % (11.5-14.5)
[2023-02-21 06:59] LABS: CALCIUM, TOTAL 8.5 mg/dL (8.8-10.5); CREATININE 2.26 mg/dL (0.60-1.30); POTASSIUM 3.1 mmol/L (3.5-5.1)
[2023-02-21] MEDS: SODIUM BICARBONATE 650 MG TABLET PO SCH ×4 (08:19→21:00)
[2023-02-21] MEDS: PANTOPRAZOLE SODIUM 40 MG DR TABLET PO SCH (08:19)
[2023-02-21] MEDS: DOCUSATE SODIUM 100 MG CAPSULE PO SCH ×2 (08:19→21:08)
[2023-02-21] MEDS: CALCIUM ACETATE 667 MG CAPSULE PO SCH ×3 (08:19→17:10)
[2023-02-21] MEDS: CHOLECALCIFEROL (VIT D3) 1,000 UNITS [25 MCG] TABLET PO SCH (08:19)
[2023-02-21] MEDS: APIXABAN 2.5 MG TABLET PO SCH ×2 (08:21→21:08)
[2023-02-21] MEDS ORDERED: DILTIAZEM HCL 60 MG SR CAPSULE PO SCH (09:00)
[2023-02-21] MEDS ORDERED: POTASSIUM CHLORIDE 10% 40 MEQ/30 ML LIQUID UDCUP PO ONE (11:15)
[2023-02-21] MEDS: MULTIVITAMINS WITH MINERALS, THERAPEUTIC TABLET PO SCH (13:33)
[2023-02-21 13:36] LABS: MAGNESIUM 2.2 mg/dL (1.80-2.40)
[2023-02-21 18:03] LABS: CALCIUM, TOTAL 8.6 mg/dL (8.8-10.5); CREATININE 2.06 mg/dL (0.60-1.30); MAGNESIUM 2.1 mg/dL (1.80-2.40); PHOSPHORUS 2.9 mg/dL (2.5-4.9); POTASSIUM 3.8 mmol/L (3.5-5.1)
[2023-02-21] MEDS: GABAPENTIN 300 MG CAPSULE PO SCH (21:08)
[2023-02-21] MEDS: SIMVASTATIN 40 MG TABLET PO SCH (21:08)
[2023-02-22] VITALS (7 sets, daily range): BP systolic 107–133; BP diastolic 70–96
[2023-02-22] MEDS: LEVOTHYROXINE SODIUM 50 MCG TABLET PO SCH (06:31)
[2023-02-22] MEDS: HYDROCODONE/ACETAMINOPHEN 5-325 MG TABLET PO PRN ×3 (06:36→23:13)
[2023-02-22 07:16] LABS: EOSINOPHILS % (AUTO) 1.8 % (1.0-6.0); HEMATOCRIT 27.7 % (36-46); HEMOGLOBIN 9.3 g/dL (12.0-16.0); LYMPHOCYTES % (AUTO) 51.3 % (22.0-44.0); MEAN CORPUSCULAR HEMOGLOBIN 34.9 pg (26.0-34.0); MEAN CORPUSCULAR HGB CONC 33.6 G/dL (31.0-37.0); MEAN CORPUSCULAR VOLUME 104 fL (80-100); MONOCYTES % (AUTO) 2.2 % (2.0-9.0); NEUTROPHILS # (AUTO) 0.8 K/uL (1.8-7.7); NEUTROPHILS % (AUTO) 43.7 % (40.0-70.0); PLATELET COUNT (AUTO) 141 K/uL (150-450); RED BLOOD CELL COUNT(AUTO) 2.66 MIL/uL (4.00-5.20); RED CELL DISTRIBUTION WIDTH 16.7 % (11.5-14.5)
[2023-02-22 07:18] LABS: CALCIUM, TOTAL 8.3 mg/dL (8.8-10.5); CREATININE 1.84 mg/dL (0.60-1.30); MAGNESIUM 2.2 mg/dL (1.80-2.40); PHOSPHORUS 3.3 mg/dL (2.5-4.9)
[2023-02-22] MEDS: DOCUSATE SODIUM 100 MG CAPSULE PO SCH ×2 (07:57→21:00)
[2023-02-22] MEDS: APIXABAN 2.5 MG TABLET PO SCH ×2 (07:57→21:15)
[2023-02-22] MEDS: PANTOPRAZOLE SODIUM 40 MG DR TABLET PO SCH (07:57)
[2023-02-22] MEDS: CALCIUM ACETATE 667 MG CAPSULE PO SCH ×3 (07:57→16:52)
[2023-02-22] MEDS: MULTIVITAMINS WITH MINERALS, THERAPEUTIC TABLET PO SCH (07:57)
[2023-02-22] MEDS: CHOLECALCIFEROL (VIT D3) 1,000 UNITS [25 MCG] TABLET PO SCH (07:58)
[2023-02-22] MEDS: SODIUM BICARBONATE 650 MG TABLET PO SCH ×3 (07:58→21:14)
[2023-02-22 08:06] LABS: HEPATITIS C AB (EIA) Non Reactive (Non Reactive)
[2023-02-22] MEDS ORDERED: DILTIAZEM HCL 30 MG TABLET PO SCH (09:00)
[2023-02-22] MEDS ORDERED: EPOETIN ALFA 10,000 UNITS/ML VIAL SQ SCH (09:00)
[2023-02-22] MEDS ORDERED: DILT30TA3 PO ×2 (09:59→15:20)
[2023-02-22] MEDS ORDERED: SODI650T33 PO (09:59)
[2023-02-22] MEDS ORDERED: PERCT PO (10:01)
[2023-02-22] MEDS ORDERED: DIGOXIN 250 MCG/ML 2 ML AMP IVP ONE (13:30)
[2023-02-22] MEDS: SIMVASTATIN 40 MG TABLET PO SCH (21:15)
[2023-02-22] MEDS: GABAPENTIN 300 MG CAPSULE PO SCH (21:15)
[2023-02-23 00:28] VITALS: BP 103/70
[2023-02-23 04:49] VITALS: BP 124/81
[2023-02-23] MEDS: HYDROCODONE/ACETAMINOPHEN 5-325 MG TABLET PO PRN (04:57)
[2023-02-23 06:54] LABS: CALCIUM, TOTAL 8.2 mg/dL (8.8-10.5); CREATININE 1.67 mg/dL (0.60-1.30)
[2023-02-23] MEDS: LEVOTHYROXINE SODIUM 50 MCG TABLET PO SCH (07:04)
[2023-02-23 08:05] VITALS: BP 117/56
[2023-02-23] MEDS: SODIUM BICARBONATE 650 MG TABLET PO SCH (08:15)
[2023-02-23] MEDS: MULTIVITAMINS WITH MINERALS, THERAPEUTIC TABLET PO SCH (08:15)
[2023-02-23] MEDS: APIXABAN 2.5 MG TABLET PO SCH (08:15)
[2023-02-23] MEDS: PANTOPRAZOLE SODIUM 40 MG DR TABLET PO SCH (08:15)
[2023-02-23] MEDS: CALCIUM ACETATE 667 MG CAPSULE PO SCH (08:15)
[2023-02-23] MEDS: CHOLECALCIFEROL (VIT D3) 1,000 UNITS [25 MCG] TABLET PO SCH (08:15)
[2023-02-23] MEDS: DOCUSATE SODIUM 100 MG CAPSULE PO SCH (08:15)
[2023-02-23] MEDS ORDERED: DILTIAZEM HCL 30 MG TABLET PO SCH (09:00)
== END 2023-02-23 11:38 | disposition home health service (06) | DRG 291 ==
LOC: EMS 11:04 → 5S 16:34
PROVIDERS: ADMIT Internal Medicine; ATTEND Internal Medicine
DX: I13.0 Hypertensive heart and chronic kidney disease with heart failure and stage 1 through stage 4 chronic kidney disease, or unspecified chronic kidney disease (principal); I50.31 Acute diastolic (congestive) heart failure; C79.51 Secondary malignant neoplasm of bone; C90.00 Multiple myeloma not having achieved remission; N17.9 Acute kidney failure, unspecified; I48.19 Other persistent atrial fibrillation; N18.4 Chronic kidney disease, stage 4 (severe); I20.0 Unstable angina; M79.18 Myalgia, other site; R07.89 Other chest pain; M79.622 Pain in left upper arm; D64.9 Anemia, unspecified; E87.6 Hypokalemia; E03.9 Hypothyroidism, unspecified; E78.00 Pure hypercholesterolemia, unspecified; I05.2 Rheumatic mitral stenosis with insufficiency; Z79.01 Long term (current) use of anticoagulants; Z79.899 Other long term (current) drug therapy; Z86.73 Personal history of transient ischemic attack (TIA), and cerebral infarction without residual deficits; Z88.6 Allergy status to analgesic agent; Z90.710 Acquired absence of both cervix and uterus; Z98.84 Bariatric surgery status
CPT/HCPCS: 71046; 71100; 80048; 80053; 83735; 83880; 84100; 84484; 85025; 85610; 85730; 86803; 87340; 93005; 93306; 99285; J0885; J1160; J1644; J2270; 36415-L1; 36415-TC